=== PATIENT | male | born 1985 | race African-American/Black ===

== ENCOUNTER 2017-12-21 08:58 | Emergency (ER) | payer BC, SELFPAY ==
[2017-12-21 09:16] VITALS: BP 123/83; PULSE 116; RESP 20; TEMP 38; O2SAT 99; BMI 26.4
[2017-12-21 09:28] LABS: UTC Influenza A Antigen Negative (Negative); UTC Influenza B Antigen Negative (Negative)
--- NOTE | 2017-12-21 09:42 | HMH.EDUTC ---
[facility] [place] Disposition Clinical Impression: Influenza-like illness Disposition: Home, Self-Care Condition on Discharge: Good Instructions: DI for Influenza -- Adult Additional Instructions: * No sign of bacterial infection. Likely viral. Virus can take 7-14 days to run their course. Sounds and looks like the flu. * Discussed risks, side effects, risk of allergic reaction, and possible benefits. We even discussed hallucinations and uncontrollable fevers. Declined tamiflu * Lots of rest * Increase fluids, water, gatorade, powerade, pedialyte if infant/toddler/child * Monitor Temp. Tylenol every 4 hours as needed no more then 5 times a day or 4000mg in 24 hours and/or ibuprofen every 6 hours as needed no more then 3200mg in 24 hours (as long as your primary care doctor has told you that it is ok to take both) for fever/aches/pain. ER if fever no less than 101 despite tylenol and Ibuprofen * OTC cold/flu/sinus medication is ok but pick one. Do not take multiple different ones as they have similar ingredients and you can overdose on cold medication. * You (or your child) are contagious until no fever, aches, chills x 24 hours without medication for symptoms. If this is not the flu and another upper respiratory virus, you might be ready to return on Thursday. If this is the flu you might not be ready to return Thursday so please call for extended note. If no worse, we can extend note but if having new or worsening symptoms, might ask you to return. Referrals: Provider,Referral, MD [Primary Care Provider] - (IMMEDIATELY for new or worsening symptoms, improvement followed by suddenly feeling worse OR no noticeable improvement over the next 48-72 hours. 911 for difficulty breathing ) Forms: Work/School Release Time of Disposition: 09:47 Medical Decision Making Vital Signs: 12/21/17 09:16 Temperature 100.4 F H Temperature Source Temporal Artery Scan Pulse Rate [Right Brachial] 116 H Respiratory Rate 20 Blood Pressure [Right Arm] 123/83 Blood Pressure Mean [Right Arm] 96 Blood Pressure Source [Right Arm] Automatic Cuff Blood Pressure Position [Right Arm] Sitting 02 Sat by Pulse Oximetry 99 Oxygen Delivery Method Room Air - Lab Data Lab results reviewed: Yes: I reviewed the patient's lab results. Lab Results 12/21/17 09:10: Influenza Type A Ag Negative, Influenza Type B Ag Negative - Morgan Inquiry Pt receiving controlled substance: No [facility] [place] HPI - General Stated complaint: Poss Flu Time Seen by Provider: 12/21/17 09:17 Mode of Arrival: Ambulatory Source of Information: Patient Limitations: No Limitations Description of Symptoms (Recalled from Triage Doc. by RN): aches, chills, fever HEENT Symptoms (Recalled from RN notes): No Resp Symptoms (Recalled from RN notes): No Skin Symptoms (Recalled from RN notes): No MS Symptoms (Recalled from RN notes): Yes (aches) Functional Status (Recalled from RN notes): n/a - History of Present Illness Provider Complaint: c/o subjective fever, aches, chills, mild nonprod cough, rhinorrhea all starting late yesterday. Fever slowly worsening throughout the night. Tylenol/motrin help but last before going to bed last night. Son w/ flu but more then 2 weeks ago. No other known sick contact at home. - Related Data Allergies Allergy/AdvReac Type Severity Reaction Status Date / Time No Known Allergies Allergy Verified 12/21/17 09:21 - Worker's Comp Is this a Worker's Comp case?: No [facility] History I have reviewed the patient's past medical history: Yes 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: Denies:: Cancer, Diabetes Mellitus Type 1, Diabetes Mellitus Type 2, Hypertension, MRSA Other Surgeries: Yes: Other (wisdom teeth extraction) Amputation: No Fractures: No - *Social History Smoking Status: Never smoker Alcohol Intake: never - Psychiatric History Expresses thoughts of harming self/others: None Suicide Plan Description: No Plan ROS Obtained: Yes Systems reviewed as appropriate & no additional
--- NOTE | 2017-12-21 09:45 | ED_ITS ---
[facility] [place] Disposition Clinical Impression: Influenza-like illness Disposition: Home, Self-Care Condition on Discharge: Good Instructions: DI for Influenza -- Adult Additional Instructions: * No sign of bacterial infection. Likely viral. Virus can take 7-14 days to run their course. Sounds and looks like the flu. * Discussed risks, side effects, risk of allergic reaction, and possible benefits. We even discussed hallucinations and uncontrollable fevers. Declined tamiflu * Lots of rest * Increase fluids, water, gatorade, powerade, pedialyte if infant/toddler/child * Monitor Temp. Tylenol every 4 hours as needed no more then 5 times a day or 4000mg in 24 hours and/or ibuprofen every 6 hours as needed no more then 3200mg in 24 hours (as long as your primary care doctor has told you that it is ok to take both) for fever/aches/pain. ER if fever no less than 101 despite tylenol and Ibuprofen * OTC cold/flu/sinus medication is ok but pick one. Do not take multiple different ones as they have similar ingredients and you can overdose on cold medication. * You (or your child) are contagious until no fever, aches, chills x 24 hours without medication for symptoms. If this is not the flu and another upper respiratory virus, you might be ready to return on Thursday. If this is the flu you might not be ready to return Thursday so please call for extended note. If no worse, we can extend note but if having new or worsening symptoms, might ask you to return. Referrals: Provider,Referral, MD [Primary Care Provider] - (IMMEDIATELY for new or worsening symptoms, improvement followed by suddenly feeling worse OR no noticeable improvement over the next 48-72 hours. 911 for difficulty breathing ) Forms: Work/School Release Time of Disposition: 09:47 Medical Decision Making Vital Signs: 12/21/17 09:16 Temperature 100.4 F H Temperature Source Temporal Artery Scan Pulse Rate [Right Brachial] 116 H Respiratory Rate 20 Blood Pressure [Right Arm] 123/83 Blood Pressure Mean [Right Arm] 96 Blood Pressure Source [Right Arm] Automatic Cuff Blood Pressure Position [Right Arm] Sitting 02 Sat by Pulse Oximetry 99 Oxygen Delivery Method Room Air - Lab Data Lab results reviewed: Yes: I reviewed the patient's lab results. Lab Results 12/21/17 09:10: Influenza Type A Ag Negative, Influenza Type B Ag Negative - Morgan Inquiry Pt receiving controlled substance: No [facility] [place] HPI - General Stated complaint: Poss Flu Time Seen by Provider: 12/21/17 09:17 Mode of Arrival: Ambulatory Source of Information: Patient Limitations: No Limitations Description of Symptoms (Recalled from Triage Doc. by RN): aches, chills, fever HEENT Symptoms (Recalled from RN notes): No Resp Symptoms (Recalled from RN notes): No Skin Symptoms (Recalled from RN notes): No MS Symptoms (Recalled from RN notes): Yes (aches) Functional Status (Recalled from RN notes): n/a - History of Present Illness Provider Complaint: c/o subjective fever, aches, chills, mild nonprod cough, rhinorrhea all starting late yesterday. Fever slowly worsening throughout the night. Tylenol/motrin help but last before going to bed last night. Son w/ flu but more then 2 weeks ago. No other known sick contact at home. - Related Data Allergies Allergy/AdvReac Type Severity Reaction Status Date / Time No Known Allergies Allergy Verified 12/21/17 09:21 - Worker's Comp Is this a Worker's Comp case?: No [facility]
[2017-12-21 09:50] VITALS: BP 127/77; PULSE 76; RESP 20; TEMP 37.7; O2SAT 99
== END 2017-12-21 09:51 | disposition home or self-care (01) ==
PROVIDERS: Emergency Provider Nurse Practitioner Family
DX: J11.1 Influenza due to unidentified influenza virus with other respiratory manifestations (principal)
CPT/HCPCS: 87804; 99202

== ENCOUNTER 2018-01-01 19:27 | Emergency (ER) | payer BC, SELFPAY ==
--- NOTE | 2018-01-01 19:44 | XR_ITS ---
XR chest 2V INDICATION: Persistent cough COMPARISON: None FINDINGS: The lung denney are well expanded and appear clear of infiltrate. The cardiomediastinal silhouette and vascularity are normal. The costophrenic angles are clear. There are partially calcified hilar nodes. The bony thorax is normal. IMPRESSION: Negative chest.
[2018-01-01 19:53] VITALS: BP 128/90; PULSE 72; RESP 20; TEMP 36.9; O2SAT 99; BMI 25.3
--- NOTE | 2018-01-01 20:04 | HMH.EDUTC ---
[facility] [place] Impression: URI (upper respiratory infection) Qualifiers: URI type: unspecified URI Qualified Code(s): J06.9 - Acute upper respiratory infection, unspecified Disposition: Home, Self-Care Condition on Discharge: Good Instructions: DI for Cough -- Adult, DI for Nasal Congestion Additional Instructions: * Monitor Temp. Tylenol and/or Ibuprofen as needed. ER if fever is no less than 101 despite alternating Tylenol and Ibuprofen * Encourage fluids, water, Gatorade, powerade, pedialyte if /toddler/or child * Warm salt water gargles for throat irritation *Warm fluids *Sore throat lozenges *Sleep elevated *humidifier or vaporizer Lots of rest Increase fluids, water, Gatorade, powerade Follow up IMMEDIATELY for new or worsening of symptoms OR no noticeable improvement over the next 48-72 hours. 911 immediately for any life threatening symptoms such as chest pain or difficulty breathing Prescriptions: Promethazine/Dextromethorphan [Promethazine-Dm Syrup] 5 ml PO Q4HP PRN #300 ml MDD 30ML/DAY PRN Reason: Cough Azithromycin [Z-Jeffrey 250mg Tab] 250 mg PO UD DOSE PK #6 tab predniSONE [Prednisone 5mg Tab Dose-Pack] 5 mg PO UD DOSE PK #21 pack Referrals: Fran Palfaox MD [Primary Care Provider] - Forms: Work/School Release Time of Disposition: 20:21 Medical Decision Making - Medical Records Medical records reviewed: Yes: I reviewed the patient's medical records. Vital Signs: 01/01/18 19:53 Temperature 98.4 F Temperature Source Oral Pulse Rate [Right Brachial] 72 Respiratory Rate 20 Blood Pressure [Right Arm] 128/90 Blood Pressure Mean [Right Arm] 102 Blood Pressure Source [Right Arm] Automatic Cuff Blood Pressure Position [Right Arm] Sitting 02 Sat by Pulse Oximetry 99 - Lab Data Lab results reviewed: Yes: I reviewed the patient's lab results. Orders (Tests/Meds): ORDERS Category Date Time Status CXR 2 view (NOT portable) [XR chest 2V] Stat Exams 01/01/18 19:44 Taken Flu A&B Antigens, Rapid [Rapid Influenza A&B Antigens] Lab 01/01/18 20:04 Ordered Stat - Morgan Inquiry Pt receiving controlled substance: No Morgan was queried for this patient: No [facility] [place] - General Stated complaint: Cough;Vomiting Mode of Arrival: Ambulatory Source of Information: Patient Description of Symptoms (Recalled from Triage Doc. by RN): cough, had the flu recently, and not any better HEENT Symptoms (Recalled from RN notes): No Resp Symptoms (Recalled from RN notes): Yes (chest congestion, cough) Skin Symptoms (Recalled from RN notes): No MS Symptoms (Recalled from RN notes): No Functional Status (Recalled from RN notes): na - History of Present Illness Provider Complaint: Patient state that he was seen last week and tested for the flu State that flu test was negative but was told he probably came in earlier because his son recently had the flu State that ever since he has been sick with cough and this morning he was coughing so hard that he was vomiting State that cough is a nagging cough and feels like something is dripping in his throat - Related Data Previous Rx's Medication Instructions Recorded Azithromycin [Z-Jeffrey 250mg Tab] 250 mg PO UD DOSE PK #6 tab 01/01/18 Promethazine/Dextromethorphan 5 ml PO Q4HP PRN #300 ml MDD 01/01/18 [Promethazine-Dm Syrup] 30ML/DAY predniSONE [Prednisone 5mg Tab 5 mg PO UD DOSE PK #21 pack 01/01/18 Dose-Pack] Allergies Allergy/AdvReac Type Severity Reaction Status Date / Time No Known Allergies Allergy Verified 12/21/17 09:21 - Worker's Comp Is this a Worker's Comp case?: No Is this an H Worker's Comp?: No Is this a [place] Worker's Comp?: No [facility] History I have reviewed the patient's past medical history: Yes 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: Denies:: Cancer, Diabetes Mellitus Type 1, Diabetes Mellitus Type 2, Hypertension, MRSA Other Surgeries: Yes: Other (wisdom teeth extraction) Amputation: No Fractures: No - Social History
--- NOTE | 2018-01-01 20:08 | ED_ITS ---
[facility] [place] Disposition Clinical Impression: URI (upper respiratory infection) Qualifiers: URI type: unspecified URI Qualified Code(s): J06.9 - Acute upper respiratory infection, unspecified Disposition: Home, Self-Care Condition on Discharge: Good Instructions: DI for Cough -- Adult, DI for Nasal Congestion Additional Instructions: * Monitor Temp. Tylenol and/or Ibuprofen as needed. ER if fever is no less than 101 despite alternating Tylenol and Ibuprofen * Encourage fluids, water, Gatorade, powerade, pedialyte if infant/toddler/or child * Warm salt water gargles for throat irritation *Warm fluids *Sore throat lozenges *Sleep elevated *humidifier or vaporizer Lots of rest Increase fluids, water, Gatorade, powerade Follow up IMMEDIATELY for new or worsening of symptoms OR no noticeable improvement over the next 48-72 hours. 911 immediately for any life threatening symptoms such as chest pain or difficulty breathing Prescriptions: Promethazine/Dextromethorphan [Promethazine-Dm Syrup] 5 ml PO Q4HP PRN #300 ml MDD 30ML/DAY PRN Reason: Cough Azithromycin [Z-Jeffrey 250mg Tab] 250 mg PO UD DOSE PK #6 tab predniSONE [Prednisone 5mg Tab Dose-Pack] 5 mg PO UD DOSE PK #21 pack Referrals: Fran Palafox MD [Primary Care Provider] - Forms: Work/School Release Time of Disposition: 20:21 Medical Decision Making - Medical Records Medical records reviewed: Yes: I reviewed the patient's medical records. Vital Signs: 01/01/18 19:53 Temperature 98.4 F Temperature Source Oral Pulse Rate [Right Brachial] 72 Respiratory Rate 20 Blood Pressure [Right Arm] 128/90 Blood Pressure Mean [Right Arm] 102 Blood Pressure Source [Right Arm] Automatic Cuff Blood Pressure Position [Right Arm] Sitting 02 Sat by Pulse Oximetry 99 - Lab Data Lab results reviewed: Yes: I reviewed the patient's lab results. Orders (Tests/Meds): ORDERS Category Date Time Status CXR 2 view (NOT portable) [XR chest 2V] Stat Exams 01/01/18 19:44 Taken Flu A&B Antigens, Rapid [Rapid Influenza A&B Antigens] Lab 01/01/18 20:04 Ordered Stat - Morgan Inquiry Pt receiving controlled substance: No Morgan was queried for this patient: No [facility] [place] HPI - General Stated complaint: Cough;Vomiting Mode of Arrival: Ambulatory Source of Information: Patient Description of Symptoms (Recalled from Triage Doc. by RN): cough, had the flu recently, and not any better HEENT Symptoms (Recalled from RN notes): No Resp Symptoms (Recalled from RN notes): Yes (chest congestion, cough) Skin Symptoms (Recalled from RN notes): No MS Symptoms (Recalled from RN notes): No Functional Status (Recalled from RN notes): na - History of Present Illness Provider Complaint: Patient state that he was seen last week and tested for the flu State that flu test was negative but was told he probably came in earlier because his son recently had the flu State that ever since he has been sick with cough and this morning he was coughing so hard that he was vomiting State that cough is a nagging cough and feels like something is dripping in his throat - Related Data Previous Rx's Medication Instructions Recorded Azithromycin [Z-Jeffrey 250mg Tab] 250 mg PO UD DOSE PK #6 tab 01/01/18 Promethazine/Dextromethorphan 5 ml PO Q4HP PRN #300 ml MDD 01/01/18 [Promethazine-Dm Syrup] 30ML/DAY predniSONE [Prednisone 5mg Tab 5 mg PO UD DOSE PK #21
[2018-01-01 20:23] VITALS: BP 128/90; PULSE 72; RESP 20; TEMP 36.9; O2SAT 99
[2018-01-01 20:43] VITALS: BP 152/90; PULSE 80; RESP 20; TEMP 36.6
== END 2018-01-01 20:43 | disposition home or self-care (01) ==
LOC: ER 19:35 → UTC 19:37
PROVIDERS: Emergency Provider Nurse Practitioner; PCP Family Medicine
DX: J06.9 Acute upper respiratory infection, unspecified (principal); Z20.828 Contact with and (suspected) exposure to other viral communicable diseases
CPT/HCPCS: 71046; 96372; 99203

== ENCOUNTER → 2018-03-15 13:29 | Outpatient (POV) | payer BC, SELFPAY | PROVIDERS: PCP Family Medicine; Visit Provider Specialist | DX: G56.01 Carpal tunnel syndrome, right upper limb (principal) | CPT/HCPCS: 95886; 95908 ==

== ENCOUNTER → 2019-12-15 07:55 | Outpatient (CLI) | payer BC, SELFPAY ==
--- NOTE | 2019-12-15 07:57 | MR_ITS ---
PROCEDURE: MR HEAD/BRAIN WO CON CLINICAL INDICATION: NEW DAILY PERSISTENT HEADACHES Severe headache with dizziness and blurred vision COMPARISON: No exams were available for comparison TECHNIQUE: Routine multiplanar multi echo sequences are performed without gadolinium enhancement. FINDINGS: No midline shift, mass effect, intracranial hemorrhage, or hydrocephalus is evident. Cerebellopontine angles, cerebellum, and brainstem have an unremarkable appearance. No evidence of acute infarction. There is a small focus of increased FLAIR signal at approximately 3 mm along the medial aspect right temporal. This is of questionable clinical significance possibly due to gliotic focus. The pituitary, optic chiasm, corpus callosum, and craniocervical junction have an unremarkable appearance. There is an asymmetric vascular prominence in the right suprasellar region. While this may be due to partial volume averaging from a tortuous vessel, 1 cannot exclude the possibility of an aneurysm the anterior communicating artery. MRA is suggested for further evaluation. This measures approximately 3 mm. There is some fluid in the right mastoid sinus. No paranasal sinus air-fluid levels evident. IMPRESSION: 1. 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 Suggest MRA for further evaluation. 2. Tiny T2 hyperintensity in the medial aspect of the right temporal lobe nonspecific of questionable clinical significance. Possibly related to a small gliotic focus. Suggest 6 month MRI follow-up without and with gadolinium enhancement Dictated by: Edu Singleton MD 12/16/2019 08:55 Electronically signed by Edu Singleton MD in [place] 12/16/2019 08:55
== END ==
PROVIDERS: PCP Family Medicine; Visit Provider Family Medicine
DX: G44.52 New daily persistent headache (NDPH) (principal)
CPT/HCPCS: 70551

== ENCOUNTER → 2019-12-29 08:39 | Outpatient (CLI) | payer BC, SELFPAY ==
--- NOTE | 2019-12-29 08:47 | CT_ITS ---
Procedure: CT ANGIO HEAD CLINICAL HISTORY: PERSISTENT HEADACHE,ABN MRI HEAD COMPARISON: No exams were available for comparison TECHNIQUE: IV Contrast: 100ml Optiray 350 Axial images obtained with sagittal and coronal reformats. All CT scans at the facility use one or more dose reduction, viz: automated exposure control, ma/kV adjustment per patient size (including targeted exams where dose is matched to indication, i.e. head), or iterative reconstruction technique. FINDINGS: There is no evidence of intracranial aneurysm or other vascular malformation. There is no focal arterial occlusion or stenosis. No vascular pathology is demonstrated. Major intracranial venous structures have a normal appearance. IMPRESSION: Exam is within normal limits. Dictated by: Juan Byers 12/29/2019 11:03 Electronically signed by Juan Byers in [place] 12/29/2019 11:03
== END ==
PROVIDERS: PCP Family Medicine; Visit Provider Family Medicine
DX: G44.52 New daily persistent headache (NDPH) (principal); R93.0 Abnormal findings on diagnostic imaging of skull and head, not elsewhere classified
CPT/HCPCS: 70496; Q9967

== ENCOUNTER 2020-05-21 13:20 | Emergency (ER) | payer BC, SELFPAY ==
--- NOTE | 2020-05-21 13:46 | HMH.EDUTC ---
[facility] [place] Clinical Impression: Gastroenteritis Disposition: Home, Self-Care Condition on Discharge: Good Instructions: Viral Gastroenteritis, DI for Viral Gastroenteritis -- Adult Additional Instructions: Drink plenty of fluids. Take tylenol or ibuprofen for pain or fever. Take the medications as directed. Follow up with your regular doctor. GO TO THE ER FOR ANY WORSENING SYMPTOMS Prescriptions: Ondansetron [Zofran 4mg ODT] 4 mg PO Q8HP PRN #10 tab.rapdis PRN Reason: Nausea Transmission Status: Received by [id number] Referrals: Alfonso Ortega MD [Primary Care Provider] - Forms: Work/School Release Time of Disposition: 14:07 Medical Decision Making - Medical Records Medical records reviewed: No: I reviewed the patient's medical records. - Morgan Inquiry Pt receiving controlled substance: No Vital Signs: 05/21/20 13:54 05/21/20 14:08 Temperature 98.0 F 98.0 F Temperature Source Temporal Artery Scan Pulse Rate 75 Pulse Rate [Left Brachial] 75 Respiratory Rate 20 20 Blood Pressure 112/69 Blood Pressure [Left Arm] 112/69 Blood Pressure Mean [Left Arm] 83 Blood Pressure Source [Left Arm] Automatic Cuff 02 Sat by Pulse Oximetry 99 Oxygen Delivery Method Room Air [facility] [place] HPI - General Stated complaint: vomiting, diarrhea Time Seen by Provider: 05/21/20 13:46 - History of Present Illness Provider Complaint: He c/o n/v/d since around 2200 last night, after he ate out. He thinks he either has food poisoning or a gi virus. He denies any cough, congestion, or fever/chills. - Related Data Previous Rx's Medication Instructions Recorded propranolol 40 mg tablet 60 mg PO BID #90 tab 03/05/20 rizatriptan 10 mg disintegrating See Rx Instructions PO .COMPLEX 03/05/20 tablet #10 tab Ondansetron [Zofran 4mg ODT] 4 mg PO Q8HP PRN #10 tab.rapdis 05/21/20 Allergies Allergy/AdvReac Type Severity Reaction Status Date / Time No Known Allergies Allergy Verified 03/05/20 14:01 [facility] History - Hepatitis A Screen Attestation statement:: This patient has been screened for Hepatitis A risk factors. I have reviewed the patient's past medical history: Yes 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: Reports:: Migraine Denies:: Cancer, Diabetes Mellitus Type 1, Diabetes Mellitus Type 2, Hypertension, MRSA Other Surgeries: Yes: Other Amputation: No Fractures: No Comment: oral surgery - Social History Smoking Status: Never smoker Alcohol Intake: current Alcohol Intake Frequency:: holidays/special occasions only Substance Use Type: denies use Occupational Status: employed Housing: house Household Members: family Family Hx:: Diabetes ROS Obtained: Yes All systems reviewed & no additional complaints - Constitutional Constitutional: Denies chills, Denies fever(s) - ENT Ears, Nose, Mouth, and Throat: Denies dizziness, Denies otalgia, Denies sore throat - Cardiovascular Cardiovascular: Denies chest pain - Respiratory Respiratory: No chest congestion, No cough, No dyspnea, No coughing up blood, No stridor, No wheezing - Gastrointestinal Gastrointestingal: Reports: as per HPI Physical Exam - General General appearance: alert, in no apparent distress - Head Head exam: atraumatic, normocephalic, normal inspection - Eye Eye exam: Present: normal appearance, PERRL, EOMI - ENT ENT exam: Present: normal exam, normal oropharynx, mucous membranes moist, TM's normal bilaterally, normal external ear exam - Neck Neck exam: Present: normal inspection, full ROM, trachea midline. Absent: meningismus, lymphadenopathy - Chest Chest inspection: Present: normal inspection, symmetric chest wall rise. Absent: tenderness - Respiratory Respiratory exam: Present: normal lung sounds bilaterally. Absent: respiratory distress - Cardiovascular Cardiovascular exam: Present: regular rate, normal rhythm. Absent: JVD - Abdominal Exam Abdominal exam: Present: soft
[2020-05-21 13:54] VITALS: BP 112/69; PULSE 75; RESP 20; TEMP 36.7; O2SAT 99; BMI 26.6
[2020-05-21 14:08] VITALS: BP 112/69; PULSE 75; RESP 20; TEMP 36.7; O2SAT 99
== END 2020-05-21 14:10 | disposition home or self-care (01) ==
PROVIDERS: Emergency Provider Nurse Practitioner Family; PCP Family Medicine
DX: K52.9 Noninfective gastroenteritis and colitis, unspecified (principal); G43.709 Chronic migraine without aura, not intractable, without status migrainosus
CPT/HCPCS: 99201

== ENCOUNTER 2020-08-07 12:12 | Emergency (ER) | payer BC, SELFPAY ==
[2020-08-07 12:55] VITALS: BP 139/93; PULSE 82; RESP 19; TEMP 36.6; O2SAT 100; BMI 25.1
--- NOTE | 2020-08-07 13:00 | HMH.EDUTC ---
[facility] [place] Disposition Clinical Impression: Encounter for laboratory testing for COVID-19 virus Disposition: Home, Self-Care Condition on Discharge: Good Instructions: Preventing the Spread of Coronavirus Discharge Instructions Additional Instructions: You was tested for today for COVID19 your test result should be back tomorrow or , you may call back in the evening tomorrow or evening to see if your test results are back and the result You was given a handout with instructions for Self Quarantine and Self isolation for while you wait on test results and what to do if they are positive Return if needed No work until negative COVID test Referrals: Alfonso Ortega MD [Primary Care Provider] - As needed Forms: Work/School Release Time of Disposition: 13:02 Medical Decision Making - Morgan Inquiry Pt receiving controlled substance: No Morgan was queried for this patient: No Vital Signs: 08/07/20 12:55 Temperature 97.9 F Temperature Source Oral Pulse Rate [Right Brachial] 82 Respiratory Rate 19 Blood Pressure [Right Arm] 139/93 H Blood Pressure Mean [Right Arm] 108 Blood Pressure Source [Right Arm] Automatic Cuff Blood Pressure Position [Right Arm] Sitting 02 Sat by Pulse Oximetry 100 Oxygen Delivery Method Room Air Orders (Tests/Meds): ORDERS Category Date Time Status Covid-19 Nasal PCR Sendout [facility] 08/07/20 12:36 Ordered [facility] [place] HPI - General Stated complaint: covid test Time Seen by Provider: 08/07/20 13:00 Mode of Arrival: Ambulatory Source of Information: Patient Limitations: No Limitations Description of Symptoms (Recalled from Triage Doc. by RN): PATIENT NEEDING COVID TEST. EXPOSED TO COWORKER WHO TESTED POSITIVE YESTERDAY, DENIES SYMPTOMS HEENT Symptoms (Recalled from RN notes): No Resp Symptoms (Recalled from RN notes): No Skin Symptoms (Recalled from RN notes): No MS Symptoms (Recalled from RN notes): No Functional Status (Recalled from RN notes): N/A - History of Present Illness Provider Complaint: Patient states that he was sent by his employer to get tested for COVID 19 State that he was recently around another co worker that recently tested positive for COVID so they wanted them all to get tested States that he has been having allergy like symptoms but does that alot this time of year - Related Data Previous Rx's Medication Instructions Recorded propranolol 40 mg tablet 60 mg PO BID #90 tab 04/27/20 rizatriptan 10 mg disintegrating See Rx Instructions PO .COMPLEX 03/05/20 tablet #10 tab Ondansetron [Zofran 4mg ODT] 4 mg PO Q8HP PRN #10 tab.rapdis 05/21/20 Allergies Allergy/AdvReac Type Severity Reaction Status Date / Time No Known Allergies Allergy Verified 03/05/20 14:01 - Worker's Comp Is this a Worker's Comp case?: No [facility] History - Hepatitis A Screen Drug use history?: No High risk sexual behaviors?: No History of sexually transmitted infection?: No Currently employed?: No Childcare worker?: No Do you have indoor plumbing?: Yes Do you have electricity?: Yes Attestation statement:: This patient has been screened for Hepatitis A risk factors. I have reviewed the patient's past medical history: Yes 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: Reports:: Migraine Denies:: Cancer, Diabetes Mellitus Type 1, Diabetes Mellitus Type 2, Hypertension, MRSA Other Surgeries: Yes: Other Amputation: No Fractures: No Comment: oral surgery - Social History Smoking Status: Never smoker Alcohol Intake: never Alcohol Intake Frequency:: holidays/special occasions only Substance Use Type: denies use Occupational Status: other Housing: house Household Members: family Family Hx:: Diabetes ROS Obtained: Yes All systems reviewed & no additional complaints, Yes Systems reviewed as appropriate & no additional complaints - Constitutional Constitutional: Reports system reviewed and no additional complaints, except as docu, Denies body ache, Denies chills, Denies fever(s
[2020-08-07 13:16] VITALS: BP 139/93; PULSE 82; RESP 19; TEMP 36.6; O2SAT 100
[2020-08-08 16:20] LABS: Covid-19 Nasal PCR Sendout Lex Positive
== END 2020-08-07 13:17 | disposition home or self-care (01) ==
PROVIDERS: Emergency Provider Nurse Practitioner; PCP Family Medicine
DX: Z20.828 Contact with and (suspected) exposure to other viral communicable diseases (principal); G43.709 Chronic migraine without aura, not intractable, without status migrainosus
CPT/HCPCS: 99201; U0004

== ENCOUNTER 2020-08-14 17:08 | Emergency (ER) | payer BC, SELFPAY ==
[2020-08-14 17:23] VITALS: BP 133/75; PULSE 82; RESP 19; TEMP 36.8; O2SAT 98
--- NOTE | 2020-08-14 17:39 | HMH.EDUTC ---
[facility] [place] Disposition Clinical Impression: COVID-19 Disposition: Home, Self-Care Condition on Discharge: Good Instructions: Preventing the Spread of Coronavirus Discharge Instructions Additional Instructions: Drink plenty of fluids. Take tylenol for pain or fever. Follow up with your regular doctor. GO TO THE ER FOR ANY WORSENING SYMPTOMS .FOLLOW THE DIRECTIONS ON THE COVID-19 HAND OUT THAT WE GAVE YOU REGARDING SELF-ISOLATION UNTIL YOU KNOW YOUR COVID-19 RESULTS CONTACT THE HEALTH DEPARTMENT REGARDING WHEN IT WILL BE SAFE FOR YOU TO GO BACK TO WORK. Referrals: Alfonso Ortega MD [Primary Care Provider] - Time of Disposition: 17:47 Medical Decision Making - Medical Records Medical records reviewed: No: I reviewed the patient's medical records. - Morgan Inquiry Pt receiving controlled substance: No Vital Signs: 08/14/20 17:23 Temperature 98.2 F Temperature Source Oral Pulse Rate [Right Brachial] 82 Respiratory Rate 19 Blood Pressure [Right Arm] 133/75 Blood Pressure Mean [Right Arm] 94 Blood Pressure Source [Right Arm] Automatic Cuff Blood Pressure Position [Right Arm] Sitting 02 Sat by Pulse Oximetry 98 Oxygen Delivery Method Room Air Orders (Tests/Meds): ORDERS Category Date Time Status Covid-19 Nasal PCR ([facility]) Routine Lab 08/14/20 17:29 Received [facility] [place] HPI - General Stated complaint: to be re testes Cov to return back work Time Seen by Provider: 08/14/20 17:39 Mode of Arrival: Ambulatory Source of Information: Patient Limitations: No Limitations Description of Symptoms (Recalled from Triage Doc. by RN): PATIENT RECENTLY TESTED POSITIVE FOR COVID AFTER BEING EXPOSED AT WORK. REQUESTING TO BE RE-TESTED HEENT Symptoms (Recalled from RN notes): No Resp Symptoms (Recalled from RN notes): No Skin Symptoms (Recalled from RN notes): No MS Symptoms (Recalled from RN notes): No Functional Status (Recalled from RN notes): WNL - History of Present Illness Provider Complaint: He is here wanting to be tested for covid. He had a positive test on 08/07. He denies that he has ever developed any symptoms. - Related Data Previous Rx's Medication Instructions Recorded propranolol 40 mg tablet 60 mg PO BID #90 tab 03/05/20 rizatriptan 10 mg disintegrating See Rx Instructions PO .COMPLEX 03/05/20 tablet #10 tab Ondansetron [Zofran 4mg ODT] 4 mg PO Q8HP PRN #10 tab.rapdis 05/21/20 Allergies Allergy/AdvReac Type Severity Reaction Status Date / Time No Known Allergies Allergy Verified 03/05/20 14:01 - Worker's Comp Is this a Worker's Comp case?: No [facility] History - Hepatitis A Screen Drug use history?: No High risk sexual behaviors?: No History of sexually transmitted infection?: No Currently employed?: No Childcare worker?: No Do you have indoor plumbing?: Yes Do you have electricity?: Yes Attestation statement:: This patient has been screened for Hepatitis A risk factors. I have reviewed the patient's past medical history: Yes 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: Reports:: Migraine Denies:: Cancer, Diabetes Mellitus Type 1, Diabetes Mellitus Type 2, Hypertension, MRSA Other Surgeries: Yes: Other Amputation: No Fractures: No Comment: oral surgery - Social History Smoking Status: Never smoker Alcohol Intake: never Alcohol Intake Frequency:: holidays/special occasions only Substance Use Type: denies use Occupational Status: other Housing: house Household Members: family Family Hx:: Diabetes ROS Obtained: Yes All systems reviewed & no additional complaints - Constitutional Constitutional: Denies chills, Denies fever(s) - Eyes Eyes: Denies eye discharge - ENT Ears, Nose, Mouth, and Throat: Denies sore throat - Cardiovascular Cardiovascular: Denies chest pain - Respiratory Respiratory: No chest congestion, No cough Physical Exam - General General appearance: alert, in no apparent distress - Head Head exam: atraumatic, normocephalic, normal i
[2020-08-14 17:51] VITALS: BP 133/75; PULSE 82; RESP 19; TEMP 36.8; O2SAT 98
== END 2020-08-14 17:54 | disposition home or self-care (01) ==
PROVIDERS: Emergency Provider Nurse Practitioner Family; PCP Family Medicine
DX: U07.1 COVID-19 (principal)
CPT/HCPCS: 99201; U0003

== ENCOUNTER 2020-09-10 14:15 | Emergency (ER) | payer BC, SELFPAY ==
[2020-09-10 14:25] VITALS: BP 143/81; PULSE 99; RESP 14; TEMP 36.9; O2SAT 100; BMI 23.7
--- NOTE | 2020-09-10 14:51 | HMH.EDUTC ---
[facility] [place] Disposition Clinical Impression: Gastroenteritis Disposition: Home, Self-Care Condition on Discharge: Good Instructions: Viral Gastroenteritis, DI for Viral Gastroenteritis -- Adult Additional Instructions: Drink plenty of fluids. Take tylenol for pain or fever. Take the medications as directed. Follow up with your regular doctor. GO TO THE ER FOR ANY WORSENING SYMPTOMS Prescriptions: Ondansetron [Zofran 4mg ODT] 4 mg PO Q8HP PRN #9 tab.rapdis PRN Reason: Nausea Transmission Status: Received by [id number] Referrals: Alfonso Ortega MD [Primary Care Provider] - Forms: Work/School Release Time of Disposition: 14:56 Medical Decision Making - Medical Records Medical records reviewed: No: I reviewed the patient's medical records. - Morgan Inquiry Pt receiving controlled substance: No Vital Signs: 09/10/20 14:25 09/10/20 15:10 Temperature 98.4 F 98.4 F Temperature Source Oral Pulse Rate 99 H Pulse Rate [Right Brachial] 99 H Respiratory Rate 14 14 Blood Pressure 143/81 H Blood Pressure [Right Arm] 143/81 H Blood Pressure Mean [Right Arm] 101 Blood Pressure Source [Right Arm] Automatic Cuff Blood Pressure Position [Right Arm] Sitting 02 Sat by Pulse Oximetry 100 Oxygen Delivery Method Room Air [facility] [place] HPI - General Stated complaint: v/d Time Seen by Provider: 09/10/20 14:53 Mode of Arrival: Ambulatory Source of Information: Patient Limitations: No Limitations Description of Symptoms (Recalled from Triage Doc. by RN): PATIENT STATES HE ATE LAO FOOD ON THURSDAY AND HAS HAD VOMITING AND DIARRHEA SINCE. HEENT Symptoms (Recalled from RN notes): No Resp Symptoms (Recalled from RN notes): No Skin Symptoms (Recalled from RN notes): No MS Symptoms (Recalled from RN notes): No Functional Status (Recalled from RN notes): WNL - History of Present Illness Provider Complaint: He states that he ate icelandic food on Thursday that did not agree with his stomach, so he had diarrhea all weekend. Now he is better but he was unable to go to work today. He denies any fever, chills, or other symptoms. - Related Data Previous Rx's Medication Instructions Recorded propranolol 40 mg tablet 60 mg PO BID #90 tab 03/05/20 rizatriptan 10 mg disintegrating See Rx Instructions PO .COMPLEX 03/05/20 tablet #10 tab Ondansetron [Zofran 4mg ODT] 4 mg PO Q8HP PRN #10 tab.rapdis 05/21/20 Ondansetron [Zofran 4mg ODT] 4 mg PO Q8HP PRN #9 tab.rapdis 09/10/20 Allergies Allergy/AdvReac Type Severity Reaction Status Date / Time No Known Allergies Allergy Verified 03/05/20 14:01 - Worker's Comp Is this a Worker's Comp case?: No [facility] History - Hepatitis A Screen Drug use history?: No High risk sexual behaviors?: No History of sexually transmitted infection?: No Currently employed?: No Childcare worker?: No Do you have indoor plumbing?: Yes Do you have electricity?: Yes Attestation statement:: This patient has been screened for Hepatitis A risk factors. I have reviewed the patient's past medical history: Yes 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: Reports:: Migraine Denies:: Cancer, Diabetes Mellitus Type 1, Diabetes Mellitus Type 2, Hypertension, MRSA Other Surgeries: Yes: Other Amputation: No Fractures: No Comment: oral surgery - Social History Smoking Status: Never smoker Alcohol Intake: never Alcohol Intake Frequency:: holidays/special occasions only Substance Use Type: denies use Occupational Status: other Housing: house Household Members: family Family Hx:: Diabetes ROS Obtained: Yes All systems reviewed & no additional complaints - Constitutional Constitutional: Denies chills, Denies fever(s), Reports poor appetite, Denies malaise - Eyes Eyes: Denies eye discharge - ENT Ears, Nose, Mouth, and Throat: Denies dizziness, Denies otalgia, Denies sore throat - Cardiovascular Cardiovascular: Denies chest pain - Respiratory Respiratory: No chest congestion,
[2020-09-10 15:10] VITALS: BP 143/81; PULSE 99; RESP 14; TEMP 36.9; O2SAT 100
== END 2020-09-10 15:15 | disposition home or self-care (01) ==
PROVIDERS: Emergency Provider Nurse Practitioner Family; PCP Family Medicine
DX: K52.9 Noninfective gastroenteritis and colitis, unspecified (principal); G43.709 Chronic migraine without aura, not intractable, without status migrainosus
CPT/HCPCS: 99201

== ENCOUNTER 2020-11-13 16:40 | Emergency (ER) | payer BC, SELFPAY ==
[2020-11-13 17:10] VITALS: BP 162/92; PULSE 85; RESP 19; TEMP 36.6; O2SAT 98; BMI 24.3
--- NOTE | 2020-11-13 17:37 | HMH.EDUTC ---
[facility] [place] Disposition Clinical Impression: Torticollis Disposition: Home, Self-Care Condition on Discharge: Good Instructions: DI for Torticollis, Cyclobenzaprine, Etodolac Additional Instructions: *Etodolac dong 6 hours with meal as needed for pain/inflammation *Not additional anti-inflammatory like motrin, aleve, advil with the above amount of ibuprofen. You can still take Tylenol every 4 hours as needed if you need something else for pain *Ice 20 minutes every 2 hours for the first 48 hours after the initial injury followed by moist heat every 20 minutes 3-4 times a day to affected area *Muscle relaxer every 8 hours as needed for muscle spasms but remember, it WILL cause drowsiness You cannot take it and drive, operate machinery or care for small children. *Keep this area active, no movement leads to more stiffness, However take it easy and avoid heavy lifting pushing or pulling *Follow up with you family doctor if no improvement for further treatment Follow up with Family Doctor if no improvement or any worsening of symptoms Prescriptions: Etodolac [Etodolac 200mg Cap*] 200 mg PO Q6H PRN #20 cap PRN Reason: Moderate Pain Transmission Status: Pending to [facility] Cyclobenzaprine HCl [Flexeril 10mg tablet] 10 mg PO TID PRN #15 tab PRN Reason: Muscle Spasm Transmission Status: Pending to [facility] Referrals: Alfonso Ortega MD [Primary Care Provider] - As needed Forms: Work/School Release Time of Disposition: 18:02 Medical Decision Making - Morgan Inquiry Pt receiving controlled substance: No Morgan was queried for this patient: No Vital Signs: 11/13/20 17:10 Temperature 97.8 F Temperature Source Oral Pulse Rate [Right Brachial] 85 Respiratory Rate 19 Blood Pressure [Right Arm] 162/92 H Blood Pressure Mean [Right Arm] 115 Blood Pressure Source [Right Arm] Automatic Cuff Blood Pressure Position [Right Arm] Sitting 02 Sat by Pulse Oximetry 98 Oxygen Delivery Method Room Air [facility] [place] HPI - General Stated complaint: left side neck pain across shoulders Time Seen by Provider: 11/13/20 17:37 Mode of Arrival: Ambulatory Source of Information: Patient Limitations: No Limitations Description of Symptoms (Recalled from Triage Doc. by RN): PATIENT C/O NECK PAIN X 2 DAYS HEENT Symptoms (Recalled from RN notes): No Resp Symptoms (Recalled from RN notes): No Skin Symptoms (Recalled from RN notes): No MS Symptoms (Recalled from RN notes): Yes Functional Status (Recalled from RN notes): WNL - History of Present Illness Provider Complaint: Patient states that he has been having muscle spasms in the left side of his neck and shoulder area for 2 days States that he did this before and had to take muscle relaxers States that it feels tight like the muscle is pulling when he turns his head, denies known injury States that he looks down alot at work and has had this before and was having muscle spasms. - Related Data Previous Rx's Medication Instructions Recorded Cyclobenzaprine HCl [Flexeril 10mg 10 mg PO TID PRN #15 tab 11/13/20 tablet] Etodolac [Etodolac 200mg Cap*] 200 mg PO Q6H PRN #20 cap 11/13/20 Allergies Allergy/AdvReac Type Severity Reaction Status Date / Time No Known Allergies Allergy Verified 03/05/20 14:01 - Worker's Comp Is this a Worker's Comp case?: No [facility] History - Hepatitis A Screen Drug use history?: No High risk sexual behaviors?: No History of sexually transmitted infection?: No Currently employed?: No Childcare worker?: No Do you have indoor plumbing?: Yes Do you have electricity?: Yes Attestation statement:: This patient has been screened for Hepatitis A risk factors. I have reviewed the patient's past medical history: Yes 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: Reports:: Migraine Denies:: Cancer, Diabetes Mellitus Type 1, Diabetes Mellitus Type 2, Hypertension, MRSA Laterality Cases: Bilateral: Tonsillectomy Other Surgeries: Yes: Other Amputation: No Fractu
[2020-11-13 18:03] VITALS: BP 162/92; PULSE 85; RESP 19; TEMP 36.6; O2SAT 98
== END 2020-11-13 18:05 | disposition home or self-care (01) ==
PROVIDERS: Emergency Provider Nurse Practitioner; PCP Family Medicine
DX: M43.6 Torticollis (principal); M62.838 Other muscle spasm
CPT/HCPCS: 99202; G0463

== ENCOUNTER 2021-01-02 11:55 | Emergency (ER) | payer BC, SELFPAY ==
[2021-01-02 11:55] VITALS: BP 140/94; PULSE 82; RESP 16; TEMP 37.2; O2SAT 99; BMI 25.8
--- NOTE | 2021-01-02 11:56 | HMH.EDCP ---
ED Disposition Clinical Impression: Chest pain Qualifiers: Chest pain type: other chest pain Qualified Code(s): R07.89 - Other chest pain Disposition: Home, Self-Care Condition on Discharge: Good Referrals: Alfonso Ortega MD [Primary Care Provider] - 3 days - Critical Care Critical Care Time: No Attestation: On , the high probability of a clinically significant, sudden or life threatening deterioration of the following system(s) required my full and direct attention, intervention and personal management. The time I documented below is in addition to time spent performing reported procedures but includes the following listed in this critical care notation. Medical Decision Making - Medical Records Medical records reviewed: Yes: I reviewed the patient's medical records. - Morgan Inquiry Pt receiving controlled substance: No Vital Signs: 01/02/21 11:55 01/02/21 12:16 Temperature 98.9 F Temperature Source Oral Pulse Rate [Right Radial] 82 77 Respiratory Rate 16 18 Blood Pressure [Right Arm] 140/94 H 132/91 H Blood Pressure Mean [Right Arm] 109 104 Blood Pressure Source [Right Arm] Automatic Cuff Blood Pressure Position [Right Arm] Sitting 02 Sat by Pulse Oximetry 99 99 Oxygen Delivery Method Room Air - Lab Data Lab results reviewed: Yes: I reviewed the patient's lab results. Lab Results 01/02/21 11:55: Troponin I < 0.01 Orders (Tests/Meds): ED MEDICATIONS Discontinued Medications Generic Name Dose Route Start Last Admin Trade Name Freq PRN Reason Stop Dose Admin Aspirin 325 mg 01/02/21 11:57 01/02/21 12:05 Aspirin 325mg Tablet PO 01/02/21 11:58 325 mg ONCE ONE Administration ORDERS Category Date Time Status CXR --portable [XR chest portable] Stat Exams 01/02/21 11:58 Ordered - Radiology Data #1 Image(s): Chest Image Reviewed: Yes I reviewed the patient's radiology results, Yes I reviewed the patient's radiology image Preliminary Findings: Normal/NAD - ECG Data Tracing #1 Normal sinus rhythm, no ST elevation or depression, no ectopy, normal intervals. ECG initial impression date: 01/02/21 ECG initial impression time: 11:54 Medical Decision Narrative: 35yo M evaluated for nosebleeds that have resolved and chest pain. Patient's chest pain is worsened with use of his right upper extremity and therefore seems more musculoskeletal. Troponin is negative. EKG is unremarkable. Chest x-ray is negative. Discussed outpatient follow-up with PCP for further evaluation and management. Patient is appropriate and stable for discharge home at this time. Chest Pain HPI - General Stated Complaint: chest pain Time Seen by Provider: 01/02/21 11:56 Mode of Arrival: Ambulatory Source of Information: Patient Limitations: No Limitations - History of Present Illness HPI narrative: 35yo M presents to the emergency department with chest pain. Patient reports he was at work when he had 2 nosebleeds followed by headache followed by chest pain. One of his coworkers advised to be seen at the emergency department for further evaluation. He is asymptomatic on arrival. His symptoms are alleviated with not using his right upper extremity. He states his chest pain is substernal and worsened with use of his right upper extremity. He denies radiating pain, diaphoresis, nausea/vomiting. He reports he has had chest pain like this previously for some time but has not been evaluated. He denies significant family history for cardiac disease. Patient reports he has nosebleeds with some frequency. Patient does not smoke, drinks on occasion, does not use drugs. - Related Data Prior Cardiac Testing/Procedures: no Echocardiogram, no RONA, no Stress Test, no Stenting, no Cardiac Angiogram, no CTA Chest/CTA Coronary Angiography, no MRI, no CABG Previous Rx's Medication Instructions Recorded Cyclobenzaprine HCl [Flexeril 10mg 10 mg PO TID PRN #15 tab 11/13/20 tablet*
--- NOTE | 2021-01-02 11:58 | XR_ITS ---
PROCEDURE: XR CHEST PORTABLE CLINICAL HISTORY: cp Chest pain COMPARISON: CR CXR2V XR chest 2V from 01/01/[address] angio chest from 03/14/2019 CR CXR2V XR chest 2V from 03/14/2019 FINDINGS: The cardiomediastinal silhouette and pulmonary vascularity are within normal limits. The lungs are clear without infiltrates, suspicious nodules, or pleural effusions. No acute bony abnormalities. IMPRESSION: No acute findings. Dictated by: Edu Singleton MD 01/02/2021 13:34 Edu Singleton MD in [place] 01/02/2021 13:34
[2021-01-02 11:59] VITALS: BMI 25.8
--- NOTE | 2021-01-02 12:12 | PC.NURSE ---
RONALD NAGEL states only wanting troponin on pt, no other labs at this time
[2021-01-02 12:16] VITALS: BP 132/91; PULSE 77; RESP 18; O2SAT 99
[2021-01-02 12:28] LABS: Troponin I < 0.01 ng/ml (0.00-0.034)
[2021-01-02 12:30] VITALS: BP 132/85; PULSE 79; RESP 18; O2SAT 98
[2021-01-02 12:49] VITALS: BP 137/81; PULSE 80; RESP 20; TEMP 36.7; O2SAT 99
--- NOTE | 2021-01-03 11:50 | ECG_ITS ---
APPROVED REPORT Exam: Resting ECG HR:78 bpm ECG Measurements Heart Rate 78 AXES TX 148 P 78 QRSd 100 QRS 46 QT 382 T 64 QTc 435 Conclusion Normal sinus rhythm Possible Left atrial enlargement Left ventricular hypertrophy Abnormal ECG Electronically signed by : Massimo Kemp, 01/03/2021 08:53:03
[2021-01-03 16:18] LABS: Chloride 102 mmol/L (98-107); Potassium 4.3 mmoL/L (3.5-5.1); Sodium 139 mmol/L (136-145)
[2021-01-03 16:20] LABS: Blood Urea Nitrogen 13 mg/dl (9-20); Creatinine Clearance Estimated 118 mL/min (50-200); Estimated Glomerular Filt Rate 85 ml/min (>60); GFR (African American) 102 ML/MIN (>60)
[2021-01-03 16:21] LABS: Alanine Aminotransferase 25 U/L (12-78); Albumin Level 4.8 g/dl (3.5-5.0); Albumin/Globulin Ratio 1.5 (1.1-1.8); Alkaline Phosphatase 47 U/L (38-126); Anion Gap 9.3 mEq/L (5-15); Aspartate Amino Transferase 36 U/L (17-59); Carbon Dioxide 32 mmol/L (22.0-30.0); Cholesterol 142 mg/dl (140-200); Globulin 3.2 g/dL (1.3-3.2); Glucose 77 mg/dl (74-100); Triglycerides 71 mg/dl (30-150); VLDL Cholesterol 14 mg/dL (0-40)
[2021-01-03 16:22] LABS: Chol/HDL Ratio 3.2 (1-3.5); HDL Cholesterol 45 mg/dl (40-60)
[2021-01-03 16:33] LABS: Direct LDL Cholesterol 65.67 mg/dL (100-129)
[2021-01-03 16:38] LABS: Hemoglobin A1C 4.8 % (4.0-6.0)
== END 2021-01-02 12:51 | disposition home or self-care (01) ==
PROVIDERS: Emergency Provider Family Medicine; PCP Family Medicine
DX: R07.89 Other chest pain (principal); G43.909 Migraine, unspecified, not intractable, without status migrainosus
CPT/HCPCS: 71045; 80053; 80061; 83036; 84484; 93005; 99283

== ENCOUNTER → 2021-01-07 15:27 | Outpatient (CLI) | payer OTHER, SELFPAY ==
[2021-01-07 17:06] LABS: Alanine Aminotransferase 19 U/L (12-78); Albumin Level 4.8 g/dl (3.5-5.0); Albumin/Globulin Ratio 1.5 (1.1-1.8); Alkaline Phosphatase 48 U/L (38-126); Aspartate Amino Transferase 29 U/L (17-59); Blood Urea Nitrogen 12 mg/dl (9-20); Calcium 9.2 mg/dl (8.4-10.2); Carbon Dioxide 32 mmol/L (22.0-30.0); Chloride 104 mmol/L (98-107); Chol/HDL Ratio 3.4 (1-3.5); Cholesterol 151 mg/dl (140-200); Estimated Glomerular Filt Rate 85 ml/min (>60); GFR (African American) 102 ML/MIN (>60); Globulin 3.1 g/dL (1.3-3.2); Glucose 91 mg/dl (74-100); HDL Cholesterol 45 mg/dl (40-60); Sodium 141 mmol/L (136-145); Total Protein,Serum 7.9 g/dl (6.3-8.2); Triglycerides 199 mg/dl (30-150); VLDL Cholesterol 40 mg/dL (0-40)
[2021-01-07 17:17] LABS: Direct LDL Cholesterol 67.62 mg/dL (100-129)
[2021-01-07 21:29] LABS: Hemoglobin A1C 4.7 % (4.0-6.0)
== END ==
PROVIDERS: Visit Provider Nurse Practitioner Family
DX: Z00.00 Encounter for general adult medical examination without abnormal findings (principal); R73.09 Other abnormal glucose
CPT/HCPCS: 36415; 80053; 80061; 83036

== ENCOUNTER → 2021-01-18 08:46 | Outpatient (CLI) | payer OTHER, SELFPAY ==
--- NOTE | 2021-01-18 08:51 | CT_ITS ---
PROCEDURE: CT ABDOMEN PELVIS WO/W CON CLINICAL INDICATION: ABD PAIN, GENERALIZED Most of left side has pain after BM and urination Pain radiates to back Nausea and some diarrhea No prior COMPARISON: No exams were available for comparison TECHNIQUE: IV Contrast: 75ML Isovue 370 Oral Contrast None Axial images obtained with sagittal and coronal reformats. All CT scans at the facility use one or more dose reduction, viz: automated exposure control, ma/kV adjustment per patient size (including targeted exams where dose is matched to indication, i.e. head), or iterative reconstruction technique. FINDINGS: LOWER THORAX: No acute finding ABDOMEN & PELVIS: The liver, spleen, adrenal glands, and pancreas have an unremarkable appearance. No renal or ureteral calculi. There is mild ptosis of the right kidney. No hydronephrosis. No renal mass. No evidence of appendicitis. No intestinal obstruction or free air. There is mild thickening of the urinary bladder. This is nonspecific. No pelvic mass or abnormal fluid collection. No acute bony finding. There is a 10 mm calcific density in the left pelvic region. This is felt represent a phleboliths and not a ureteral stone and is felt to be medial to the left ureter. No hydronephrosis or ureteral dilatation. No acute bony findings. There is mild thoracolumbar curvature convex right. IMPRESSION: 1. There is mild urinary bladder wall thickening which may be seen with incomplete distension, chronic outflow obstruction, or cystitis. 2. Otherwise negative Dictated by: Edu Singleton MD 01/19/2021 13:07 Edu Singleton MD in [facility] 01/19/2021 13:08
== END ==
PROVIDERS: PCP Internal Medicine Adolescent Medicine; Visit Provider Internal Medicine Adolescent Medicine
DX: R10.84 Generalized abdominal pain (principal)
CPT/HCPCS: 74178; Q9967

== ENCOUNTER → 2021-03-12 15:04 | Outpatient (CLI) | payer OTHER, SELFPAY ==
[2021-03-12 16:51] LABS: Coronavirus 19 IgG Antibody Positive (Negative); Coronavirus 19 IgM Antibody Negative (Negative)
== END ==
PROVIDERS: Visit Provider Surgery
DX: Z01.812 Encounter for preprocedural laboratory examination (principal); Z20.822 Contact with and (suspected) exposure to COVID-19; Z13.810 Encounter for screening for upper gastrointestinal disorder
CPT/HCPCS: 36415; 86328

== ENCOUNTER 2021-03-13 07:54 | Day surgery (SDC) | payer OTHER, SELFPAY ==
[2021-03-11 10:57] VITALS: BMI 25.8
[2021-03-13] VITALS (11 sets, daily range): BP systolic 105–144; BP diastolic 64–94; PULSE 62–82; RESP 16–18; TEMP 36.6–36.7; O2SAT 97–100
--- NOTE | 2021-03-13 09:23 | [facility]H.SCOPE ---
- Procedure: Date: 03/13/21 Patient Date of :: 1985 Procedure Performed:: Esophagogastroduodenoscopy with biopsies Indications:: Patient is a 35-year-old male referred by Dr. Massimo Kemp for upper endoscopy. He has had some symptoms for about 2 months. He was seen in the emergency department on 01/02/2021. At that time he had been at work and developed nosebleeds followed by headache followed by what is described as chest pain which was atypical. This seemed to be worse with use of the right upper extremity. Cardiac assessment in the emergency department was unremarkable. His symptoms have persisted and he describes mid umbilical pain radiating through to the epigastric area and into his back. It is relatively constant. It seems to limit his ability to stand up straight and lay on his side. He does describe some postprandial bloating and rare vomiting. He underwent outpatient CT scan on 01/19 with and without IV contrast with no oral contrast. This is relatively unremarkable showing some possible mild urinary bladder thickening. He was sent for surgical consultation for upper endoscopy. Performing Provider:: Ubaldo Duncan MD Referring Provider:: Massimo Kemp MD Sedation:: MAC sedation Procedure:: Patient was taken to endoscopy procedure room. He was positioned in a lateral decubitus position. Adequate intravenous sedation was achieved with anesthesia titration of propofol. Olympus endoscope was inserted via the oropharynx. Advanced to the esophagus. Esophagus appeared normal. Stomach was cannulated and insufflated. Retroflexion was performed which revealed no evidence of any obvious significant hiatal hernia. Gastric mucosa appeared relatively unremarkable with only some mild nonerosive gastritis. Gastric antral mucosal biopsies obtained for CLOtest for H. pylori. Pylorus was traversed. Duodenal bulb and duodenal sweep appeared unremarkable. Biopsy was obtained. Endoscope was withdrawn into the gastric lumen. Biopsies obtained in the antrum for histopathologic analysis. A couple of distal esophageal biopsies were obtained. Findings:: Unremarkable appearing upper endoscopy Recommendations:: Follow-up on histopathology. Unclear as to the patient's symptom etiology. I will order a gallbladder ultrasound to be done prior to follow-up in the office. Complications:: None immediately apparent Estimated blood obtained (mL): 2
--- NOTE | 2021-03-13 11:29 | P.PN_ITS ---
[facility] Anesthesia Checklist - Patient Identification Patient Identification: Arm Band - Structural Data Admitted From: Home Planned Operative Procedure/s: EGD Consent for Planned Operative Procedure(s) Verified: Yes Verified Documents: Surgical Consent, History and Physical - NPO Status Verified Time NPO: 00:00 - Airway Assessment C-Spine Mobility Assessed: Yes TMJ Mobility Assessed: Yes Dentition: Good Dentition - Anesthesia Plan Anesthesia Risk discussed: Yes Anesthesia Plan: Verified ASA Class: I Anesthesia Type: MAC [facility] History 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: Reports:: Migraine Denies:: Cancer, Diabetes Mellitus Type 1, Diabetes Mellitus Type 2, Hypertension, Internal Pacemaker, MRSA, Seizures *Have you ever received a pneumonia vaccine?: No *Have you received a flu vaccine this season?: No Anesthesia experience/problems:: None Laterality Cases: Bilateral: Tonsillectomy Other Surgeries: Yes: No Previous Surgery, Other. No: Pacemaker Amputation: No Fractures: No - *Social History Last grade of school completed: High school graduate Smoking Status: Never smoker Alcohol Intake: current Alcohol Intake Frequency:: a few times a month Substance Use Type: denies use *Occupational Status:: unemployed Housing: house Household Members: significant other, family *Travel in the last 8 weeks: None Family Hx:: Diabetes
--- NOTE | 2021-03-13 11:45 | PC.NURSE ---
PT REPORTS PAIN IS MUCH BETTER AND READY FOR DISCHARGE. POST OP TEACHING COMPLETED.
== END 2021-03-13 11:45 | disposition home or self-care (01) ==
LOC: OUTP 07:55
PROVIDERS: PCP Internal Medicine Adolescent Medicine; Visit Provider Surgery
PROC: 0DJ08ZZ Inspection of Upper Intestinal Tract, Via Natural or Artificial Opening Endoscopic (ICD-10-PCS; CPT 43235; principal; 2021-03-13 08:30)
DX: R10.13 Epigastric pain (principal); R07.89 Other chest pain; G43.909 Migraine, unspecified, not intractable, without status migrainosus; Z83.3 Family history of diabetes mellitus
CPT/HCPCS: 43239; 87339; 96374

== ENCOUNTER → 2021-03-20 07:51 | Outpatient (CLI) | payer OTHER, SELFPAY ==
--- NOTE | 2021-03-20 07:54 | US_ITS ---
PROCEDURE: US GALLBLADDER CLINICAL INDICATION: epigastric pain COMPARISON: No exams were available for comparison FINDINGS: Pancreas: Visualized pancreas is unremarkable. Liver: The liver is normal in size and demonstrates homogeneous echotexture. No intra or extrahepatic biliary dilation is noted. The common bile duct measures 0.3 centimeters.. There is appropriate direction of blood flow within a non dilated portal vein. Right kidney: Unremarkable appearing. No hydronephrosis. Gallbladder: No stones are evident. There is sludge with multiple internal septations of the gallbladder. There is no gallbladder wall thickening. Common duct is normal in diameter. IMPRESSION: Sludge in the gallbladder. Gallbladder septations. Otherwise unremarkable study. Dictated by: Carmen Nova 03/20/2021 11:00 Carmen Nova in OV 03/20/2021 11:00
== END ==
PROVIDERS: PCP Internal Medicine Adolescent Medicine; Visit Provider Surgery
DX: R10.13 Epigastric pain (principal)
CPT/HCPCS: 76705

== ENCOUNTER → 2021-06-05 17:16 | Outpatient (CLI) | payer OTHER, SELFPAY | PROVIDERS: Visit Provider Urology | DX: Z20.822 Contact with and (suspected) exposure to COVID-19 (principal) | CPT/HCPCS: U0003 ==

== ENCOUNTER 2021-06-07 07:17 | Day surgery (SDC) | payer OTHER, SELFPAY ==
[2021-06-07] VITALS (7 sets, daily range): BP systolic 101–145; BP diastolic 52–95; PULSE 65–75; RESP 16–18; TEMP 36.2–43; O2SAT 97–100
--- NOTE | 2021-06-07 10:07 | P.PN_ITS ---
[facility] Anesthesia Checklist - Patient Identification Patient Identification: Arm Band - Structural Data Admitted From: Home Planned Operative Procedure/s: vasectromy Consent for Planned Operative Procedure(s) Verified: Yes Verified Documents: Surgical Consent, History and Physical - NPO Status Verified Time NPO: 00:00 - Additional verifications Anesthesia Reactions: No Hx Blood Transfusions: No Blood Transfusion Reaction: No - Airway Assessment C-Spine Mobility Assessed: Yes (mp2) TMJ Mobility Assessed: Yes Dentition: Good Dentition - Neurological Assessment Level of Consciousness: Awake, Alert - Anesthesia Plan Anesthesia Risk discussed: Yes Anesthesia Plan: Verified ASA Class: I Anesthesia Type: MAC [facility] History I have reviewed the patient's past medical history: Yes 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: Reports:: Migraine Denies:: Cancer, Diabetes Mellitus Type 1, Diabetes Mellitus Type 2, Hypertension, Internal Pacemaker, MRSA, Seizures *Have you ever received a pneumonia vaccine?: No *Have you received a flu vaccine this season?: No Other 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: Denies: Blood Transfusion Reaction Anesthesia experience/problems:: nac Laterality Cases: Bilateral: Tonsillectomy Other Surgeries: Yes: No Previous Surgery, EGD, Other. No: Pacemaker Amputation: No Fractures: No - *Social History Last grade of school completed: High school graduate Smoking Status: Never smoker Alcohol Intake: current Alcohol Intake Frequency:: a few times a month Substance Use Type: denies use *Occupational Status:: employed Housing: house Household Members: significant other, family *Travel in the last 8 weeks: None Family Hx:: Diabetes
--- NOTE | 2021-06-07 12:53 | P.OP_ITS ---
Date of procedure: 06/07/21 Pre-op Diagnosis:: Sterilization Post-op Diagnosis:: Sterilization Procedure performed:: Vasectomy Surgeon:: Lars Jeffers MD AMBULANCE OPERATIONS SUPERVISOR:: Ronan Rodriguez Anesthesia: MAC Estimated blood loss (mL): 0 Clinical Note:: 35-year-old male who was previously seen for vasectomy consultation presents for the procedure today. Operative findings:: Scrotal and testicular examination within normal limits. Vasectomy was performed without complication. Operative note:: Patient taken to the operating suite after informed consent was obtained. Was placed on the operating table in the supine position and monitored anesthesia care administered. He was then prepped and draped in the standard surgical fashion. The left vas was palpated and brought up to the anterior midline raphae. Local anesthetic was placed under the skin and in and around the left vas. An incision was then made in the midline raphae and the tenaculum was used to grasp the vas and it was brought up through the incision. The vasal sheath was then incised and the vas proper was isolated from its surrounding a dventitial tissue. 1 Hemoclip was placed distally and tube was placed proximally. A 1 cm segment was then excised and the basal lumens were cauterized. Hemostasis achieved and the left vas dropped back into the left hemiscrotum. The right vas was then brought up through the incision and local anesthetic placed. Identical procedure was performed as on the patient's left side. The right vas was dropped back into the hemiscrotum and a 3-0 chromic was placed in the incision in a horizontal mattress fashion. A sterile dressing and jockstrap were placed afterwards. Patient tolerated the procedure well. Condition: stable Disposition: same day Specimens:: Vas segments were not sent Complications:: None
== END 2021-06-07 11:30 | disposition home or self-care (01) ==
LOC: OR 07:18
PROVIDERS: PCP Internal Medicine Adolescent Medicine; Visit Provider Urology
PROC: (CPT 55250; principal; 2021-06-07 09:00)
DX: Z30.2 Encounter for sterilization (principal); G43.909 Migraine, unspecified, not intractable, without status migrainosus; Z83.3 Family history of diabetes mellitus
CPT/HCPCS: 55250; 96374

== ENCOUNTER 2021-10-07 20:59 | Emergency (ER) | payer OTHER, SELFPAY ==
[2021-10-07 21:00] VITALS: BP 140/91; PULSE 83; RESP 16; TEMP 36.8; O2SAT 97; BMI 25.7
[2021-10-07 21:30] VITALS: BP 122/88; PULSE 82; O2SAT 99
--- NOTE | 2021-10-07 21:49 | CT_ITS ---
PROCEDURE INFORMATION: Exam: CT Abdomen And Pelvis With Contrast Exam date and time: 10/07/2021 9:49 PM Age: 36 years old Clinical indication: Abdominal pain; Localized; Right lower quadrant (rlq); Patient HX: Rlq pain that started today; Additional info: Abd pain TECHNIQUE: Imaging protocol: Computed tomography of the abdomen and pelvis with contrast. Radiation optimization: All CT scans at this facility use at least one of these dose optimization techniques: automated exposure control; mA and/or kV adjustment per patient size (includes targeted exams where dose is matched to clinical indication); or iterative reconstruction. Contrast material: ISOVUE; Contrast volume: 75 ml; Contrast route: IV; COMPARISON: CT ABDOMEN PELVIS WO/W CON 01/18/2021 9:06 AM FINDINGS: Lungs: No mass/infiltrate at either lung base. No pleural effusion. Liver: The liver is normal in size and attenuation. No intrahepatic biliary dilitation. Gallbladder and bile ducts: Normal. No calcified stones. No ductal dilation. Gallbladder wall thickness is normal. Pancreas: Normal. No ductal dilation. Spleen: Normal. No splenomegaly. Adrenal glands: Normal. No mass. Kidneys and ureters: Normal. No hydronephrosis. Stomach and bowel: Unremarkable. No obstruction. No mucosal thickening. Small bowel mesentery is normal. Appendix: Unremarkable. Intraperitoneal space: Unremarkable. No free air. No significant fluid collection. Vasculature: Unremarkable. No abdominal aortic aneurysm. There are calcified phleboliths within the pelvis. Lymph nodes: Unremarkable. No enlarged lymph nodes. Urinary bladder: Unremarkable as visualized. Limited distention. Reproductive: Unremarkable as visualized. Bones/joints: Mild dextroconvex thoracolumbar scoliosis again identified. No acute fracture. Soft tissues: Unremarkable. IMPRESSION: No acute process within the abdomen or pelvis.
[2021-10-07 22:00] VITALS: BP 136/67; PULSE 86; O2SAT 99
[2021-10-07 22:05] LABS: Microscopic, Urine URINE MICROSCOPIC (MICROSCOPIC)
--- NOTE | 2021-10-07 22:05 | HMH.EDNVD ---
ED Disposition Clinical Impression: Abdominal pain Qualifiers: Abdominal location: epigastric Qualified Code(s): R10.13 - Epigastric pain Disposition: Home, Self-Care Condition on Discharge: Good Instructions: DI for Acute Abdominal Pain Additional Instructions: call pcp in am Referrals: Massimo Kemp MD [Primary Care Provider] - - Critical Care Critical Care Time: No Attestation: On 10/07/21, the high probability of a clinically significant, sudden or life threatening deterioration of the following system(s) required my full and direct attention, intervention and personal management. The time I documented below is in addition to time spent performing reported procedures but includes the following listed in this critical care notation. Medical Decision Making - Medical Records Medical records reviewed: Yes: I reviewed the patient's medical records. - Morgan Inquiry Pt receiving controlled substance: No Vital Signs: 10/07/21 21:00 Temperature 98.3 F Temperature Source Oral Pulse Rate [Left] 83 Respiratory Rate 16 Blood Pressure [Right Arm] 140/91 H Blood Pressure Mean [Right Arm] 107 02 Sat by Pulse Oximetry 97 Oxygen Delivery Method Room Air - Lab Data Lab results reviewed: Yes: I reviewed the patient's lab results. Lab Results 10/07/21 21:34: Urine Color Yellow, Urine Appearance Clear, Urine pH 6.0, Ur Specific [place] 1.025, Urine Protein Negative, Urine Glucose (UA) Negative, Urine Ketones Negative, Urine Blood Negative, Urine Nitrate Negative, Urine Bilirubin Negative, Urine Urobilinogen 0.2, Ur Leukocyte Esterase Negative, Urine RBC 3-5, Urine WBC 5-10, Ur Squamous Epith Cells Occasional, Urine Bacteria Trace 10/07/21 21:34: WBC 7.5, RBC 4.52 L, Hgb 13.8 L, Hct 40.1 L, MCV 88.8, MCH 30.5, MCHC 34.4, RDW 13.6, Plt Count 179, MPV 9.4, Neut % (Auto) 79.6, Lymph % (Auto) 12.3, Sampson % (Auto) 6.4, Eos % (Auto) 1.1, Baso % (Auto) 0.5, Neut # (Auto) 5.9, Lymph # (Auto) 0.9, Sampson # (Auto) 0.5, Eos # (Auto) 0.1, Baso # (Auto) 0.0 10/07/21 21:34: Sodium 142, Potassium 3.8, Chloride 103, Carbon Dioxide 31 H, Anion Gap 11.8, BUN 15, Creatinine 1.00, Estimated Creat Clear 119, Estimated GFR 84, Est GFR ( Amer) 102, Glucose 98, Calcium 9.7, Total Bilirubin 1.2, AST 37, ALT 22, Alkaline Phosphatase 45, C-Reactive Protein 2.8, Total Protein 7.8, Albumin 4.7, Globulin 3.1, Albumin/Globulin Ratio 1.5, Amylase 118 H, Lipase 104 10/07/21 21:34: ESR 16 H 10/07/21 21:34: Procalcitonin 0.102 Result diagrams: 10/07/21 21:34 10/07/21 21:34 Orders (Tests/Meds): ED MEDICATIONS Discontinued Medications Generic Name Dose Route Start Last Admin Trade Name Freq PRN Reason Stop Dose Admin Famotidine 20 mg 10/07/21 21:50 10/07/21 21:55 Famotidine 20mg/2ml Vial IV 10/07/21 21:51 20 mg ONCE ONE Administration Sodium Chloride 1,000 mls @ 999 mls/hr 10/07/21 22:00 10/07/21 21:55 Sod Chlor 0.9% 1000ml Bag IV 10/07/21 23:00 999 mls/hr .Q1H1M AVI Administration Iopamidol 75 ml 10/07/21 22:40 10/07/21 22:41 Iopamidol-370 (76%);100ml Bottle IV 10/07/21 22:41 75 ml ONCE ONE Administration Ketorolac Tromethamine 30 mg 10/07/21 21:50 10/07/21 21:55 Ketorolac 30mg/Ml Vial IV 10/07/21 21:51 30 mg ONCE ONE Administration Ondansetron HCl 4 mg 10/07/21 21:50 10/07/21 21:56 Ondansetron 4mg/2ml Vial IV 10/07/21 21:51 4 mg ONCE ONE Administration Sodium Chloride 10 ml 10/07/21 22:40 10/07/21 22:41 Sodium Chloride 0.9% 10ml Syr (Rad Only) IV 10/07/21 22:41 10 ml ONCE ONE Administration - CT Data CT Scan: Abdomen, Pelvis Time Received: 23:[address] Reviewed: Yes: I have viewed the radiologist's interpretation Preliminary Findings: Normal/NAD Medical Decision Narrative: pt with stable exam and call pcp in am Nausea/Vomiting/Diarrhea HPI - General Chief complaint: Abdominal Pain Stated complaint: vomiting Time Seen by Provider: 10/07/21 21:30 M
--- NOTE | 2021-10-07 22:05 | PC.NURSE ---
pt stated that he induced vomiting before coming into the er tonight but only got out a small amount of clear greenish bile
[2021-10-07 22:06] LABS: Basophils % 0.5 % (0.1-2.0); Eosinophils # 0.1 K/mm3 (0.0-0.4); Eosinophils % 1.1 % (0.1-12.0); Hematocrit 40.1 % (42.0-52.0); Hemoglobin 13.8 g/dL (14.1-18.0); Lymphocytes # 0.9 K/mm3 (0.7-4.5); Lymphocytes % 12.3 % (10-50); Mean Corpuscular HGB Conc 34.4 g/dL (31.8-35.4); Mean Corpuscular Hemoglobin 30.5 pg (27.0-31.2); Mean Corpuscular Volume 88.8 fl (80-94); Mean Platelet Volume 9.4 fl (7.4-10.4); Monocytes # 0.5 K/mm3 (0.1-1.0); Monocytes % 6.4 % (1.7-9.3); Neutrophils # 5.9 K/mm3 (1.8-7.8); Neutrophils % 79.6 % (37.0-80.0); Platelet Count 179 K/mm3 (142-424); Red Blood Count 4.52 M/mm3 (4.60-6.20); Red Cell Distribution Width 13.6 % (11.5-17.5); White Blood Count 7.5 K/mm3 (4.8-10.8)
[2021-10-07 22:07] LABS: Appearance,Urine CLEAR (Clear); Bilirubin,Urine Negative (Negative); Blood, Urine Negative (Negative); Color,Urine YELLOW (Yellow); Glucose,Urine (UA) Negative (Negative); Ketones,Urine Negative (Negative); Leukocyte Esterase,Urine Negative (Negative); Nitrate,Urine Negative (Negative); Protein,Urine Negative (Negative); Specific Gravity, Urine 1.025 (1.005-1.030); Urobilinogen,Urine 0.2 EU/dl (0.2)
[2021-10-07 22:11] LABS: Alanine Aminotransferase 22 U/L (12-78); Albumin Level 4.7 g/dl (3.5-5.0); Albumin/Globulin Ratio 1.5 (1.1-1.8); Alkaline Phosphatase 45 U/L (38-126); Amylase 118 U/L (30-110); Anion Gap 11.8 mEq/L (5-15); Aspartate Amino Transferase 37 U/L (17-59); Bilirubin,Total 1.2 mg/dl (0.2-1.3); Blood Urea Nitrogen 15 mg/dl (9-20); Calcium 9.7 mg/dl (8.4-10.2); Carbon Dioxide 31 mmol/L (22.0-30.0); Chloride 103 mmol/L (98-107); Creatinine Clearance Estimated 119 mL/min (50-200); Estimated Glomerular Filt Rate 84 ml/min (>60); GFR (African American) 102 ML/MIN (>60); Globulin 3.1 g/dL (1.3-3.2); Glucose 98 mg/dl (74-100); Lipase 104 U/L (23-300); Potassium 3.8 mmoL/L (3.5-5.1); Sodium 142 mmol/L (136-145); Total Protein,Serum 7.8 g/dl (6.3-8.2)
[2021-10-07 22:17] LABS: C-Reactive Protein 2.8 mg/L (0-4)
[2021-10-07 22:28] LABS: Bacteria,Urine Trace /lpf; Squamous Epithelial Cell,Urine Occasional #/hpf (0-5)
[2021-10-07 22:30] VITALS: BP 119/71; PULSE 74; O2SAT 96
[2021-10-07 22:30] LABS: Procalcitonin 0.102 ng/mL (0.0-2.0)
[2021-10-07 22:48] LABS: Erythrocyte Sedimentation Rate 16 mm/hr (0-15)
[2021-10-07 23:00] VITALS: BP 115/75; PULSE 66; O2SAT 100
[2021-10-07 23:48] VITALS: BP 120/81; PULSE 73; RESP 16; TEMP 36.6; O2SAT 100
== END 2021-10-07 23:54 | disposition home or self-care (01) ==
PROVIDERS: Emergency Provider Emergency Medicine; PCP Internal Medicine Adolescent Medicine
DX: R10.13 Epigastric pain (principal); R11.2 Nausea with vomiting, unspecified; G43.709 Chronic migraine without aura, not intractable, without status migrainosus
CPT/HCPCS: 74177; 80053; 81001; 82150; 83690; 84145; 85025; 85651; 86140; 96365; 96375; 99283; J2405; Q9967

== ENCOUNTER 2021-10-08 19:25 | Emergency (ER) | payer OTHER, SELFPAY ==
[2021-10-08 20:39] VITALS: BP 123/78; PULSE 78; RESP 16; TEMP 36.9; O2SAT 100; BMI 25.7
--- NOTE | 2021-10-08 20:48 | HMH.EDUTC ---
[facility] [place] Clinical Impression: Abdominal pain Qualifiers: Abdominal location: unspecified location Qualified Code(s): R10.9 - Unspecified abdominal pain Disposition: Still a Patient Condition on Discharge: Fair Referrals: Massimo Kemp MD [Primary Care Provider] - Time of Disposition: 21:00 Medical Decision Making - Medical Records Medical records reviewed: No: I reviewed the patient's medical records. - Morgan Inquiry Pt receiving controlled substance: No Vital Signs: 10/08/21 20:39 Temperature 98.4 F Temperature Source Oral Pulse Rate [Left] 78 Respiratory Rate 16 Blood Pressure [Right Arm] 123/78 Blood Pressure Mean [Right Arm] 93 02 Sat by Pulse Oximetry 100 Medical Decision Narrative: He was transferred to the er due to his abdominal pain. [facility] [place]PI - General Stated complaint: pain stomach Time Seen by Provider: 10/08/21 20:48 Mode of Arrival: Ambulatory Source of Information: Patient Limitations: No Limitations Description of Symptoms (Recalled from Triage Doc. by RN): pt states he was seen here last night. pt states his pcp says he has sludge in his gallbladder. last night his abd ct was negative. pt c/o pain on the LUQ that radiates into his back. pt reports green and white emesis. pt states he can't take the pain any longer. HEENT Symptoms (Recalled from RN notes): No Resp Symptoms (Recalled from RN notes): No Skin Symptoms (Recalled from RN notes): No MS Symptoms (Recalled from RN notes): No Functional Status (Recalled from RN notes): wnl - History of Present Illness Provider Complaint: He is here with complaints of abdominal pain. This pain has been ongoing since yesterday. It started after he ate [employer] cheese burgers. He has a known history of sludge in his gall bladder . He was in the ER last night with these same complaints. He states that after he was sent home last night his pain returned and it has continued until now. He is also having nausea. He has not vomited since yesterday. - Related Data Home Medications Medication Instructions Recorded Confirmed No Known Home Medications 01/02/21 06/07/21 Allergies Allergy/AdvReac Type Severity Reaction Status Date / Time No Known Allergies Allergy Verified 08/26/21 12:57 - Worker's Comp Is this a Worker's Comp case?: No [facility] History - Hepatitis A Screen Drug use history?: No High risk sexual behaviors?: No History of sexually transmitted infection?: No Currently employed?: No Childcare worker?: No Do you have indoor plumbing?: Yes Do you have electricity?: Yes Attestation statement:: This patient has been screened for Hepatitis A risk factors. I have reviewed the patient's past medical history: Yes 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: Reports:: Migraine Denies:: Cancer, Diabetes Mellitus Type 1, Diabetes Mellitus Type 2, Hypertension, Internal Pacemaker, MRSA, Seizures Other 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: Denies: Blood Transfusion Reaction Laterality Cases: Bilateral: Tonsillectomy Other Surgeries: Yes: No Previous Surgery, EGD, Other. No: Pacemaker Amputation: No Fractures: No Comment: oral surgery - Social History Smoking Status: Never smoker Alcohol Intake: current Alcohol Intake Frequency:: a few times a month Substance Use Type: denies use Occupational Status: employed Housing: house Household Members: significant other, family Family Hx:: Diabetes ROS Obtained: Yes All systems reviewed & no additional complaints - Constitutional Constitutional: Denies chills, Denies fever(s), Reports poor appetite, Reports malaise - Eyes Eyes: Denies eye discharge - ENT Ears, Nose, Mouth, and Throat: Denies dizziness, Denies otalgia, Denies sore throat - Cardiovascular Cardiovascular: Denies chest pain - Respiratory Respiratory: Denies chest congestion, Denies cough, Denies dyspnea, Denies stridor, Denies wheezing - Gastrointestinal Gastrointestingal: Reports: as per HPI - Genitourinary Male Genitourinary:
[2021-10-08 21:21] VITALS: BP 00/0; PULSE 0; RESP 0; TEMP -17.7; TEMP 0
== END 2021-10-08 21:23 | disposition left against medical advice (07) ==
LOC: UTC 21:00 → ER 21:06
PROVIDERS: Emergency Provider Nurse Practitioner Family; PCP Internal Medicine Adolescent Medicine
DX: R10.12 Left upper quadrant pain (principal); G43.709 Chronic migraine without aura, not intractable, without status migrainosus
CPT/HCPCS: 99211

== ENCOUNTER → 2021-10-09 16:29 | Outpatient (CLI) | payer OTHER, SELFPAY ==
[2021-10-09 18:45] LABS: Basophils % 0.4 % (0.1-2.0); Eosinophils # 0.1 K/mm3 (0.0-0.4); Eosinophils % 1.5 % (0.1-12.0); Hematocrit 37.4 % (42.0-52.0); Hemoglobin 12.9 g/dL (14.1-18.0); Lymphocytes # 1.3 K/mm3 (0.7-4.5); Lymphocytes % 27.8 % (10-50); Mean Corpuscular HGB Conc 34.6 g/dL (31.8-35.4); Mean Corpuscular Volume 86.9 fl (80-94); Mean Platelet Volume 9.9 fl (7.4-10.4); Monocytes # 0.5 K/mm3 (0.1-1.0); Monocytes % 10.5 % (1.7-9.3); Neutrophils # 2.7 K/mm3 (1.8-7.8); Neutrophils % 59.8 % (37.0-80.0); Platelet Count 192 K/mm3 (142-424); Red Blood Count 4.31 M/mm3 (4.60-6.20); Red Cell Distribution Width 13.4 % (11.5-17.5); White Blood Count 4.5 K/mm3 (4.8-10.8)
[2021-10-09 18:58] LABS: Alanine Aminotransferase 21 U/L (12-78); Albumin Level 4.6 g/dl (3.5-5.0); Albumin/Globulin Ratio 1.6 (1.1-1.8); Alkaline Phosphatase 45 U/L (38-126); Amylase 81 U/L (30-110); Anion Gap 11.1 mEq/L (5-15); Aspartate Amino Transferase 36 U/L (17-59); Bilirubin,Total 0.8 mg/dl (0.2-1.3); Blood Urea Nitrogen 12 mg/dl (9-20); Calcium 9.4 mg/dl (8.4-10.2); Carbon Dioxide 31 mmol/L (22.0-30.0); Chloride 102 mmol/L (98-107); Estimated Glomerular Filt Rate 95 ml/min (>60); GFR (African American) 115 ML/MIN (>60); Globulin 2.8 g/dL (1.3-3.2); Glucose 84 mg/dl (74-100); Lipase 111 U/L (23-300); Potassium 4.1 mmoL/L (3.5-5.1); Sodium 140 mmol/L (136-145); Total Protein,Serum 7.4 g/dl (6.3-8.2)
== END ==
PROVIDERS: Visit Provider Internal Medicine Adolescent Medicine
DX: R10.84 Generalized abdominal pain (principal)
CPT/HCPCS: 36415; 80053; 82150; 83690; 85025

== ENCOUNTER 2022-01-18 12:03 | Emergency (ER) | payer OTHER, SELFPAY ==
[2022-01-18 12:04] VITALS: BP 122/70; PULSE 80; RESP 16; TEMP 37; O2SAT 98; BMI 25.1
--- NOTE | 2022-01-18 12:21 | HMH.EDUTC ---
[facility] [place] Clinical Impression: Laceration Disposition: Home, Self-Care Condition on Discharge: Good Instructions: DI for Laceration Repair, Laceration Repair, DI for Laceration Repair -- Simple Additional Instructions: Suture instructions: You have required stitches today. Please read the following instructions so you know how to care for them: 1. Keep wound area dry for the first 24 hours. 2 May clean gently with mild soap and water, after 48 hours to prevent crusting over suture knots. 3. You may shower if your provider gives permission but do not take a bath until the skin is healed.. 4. Never leave a wet dressing or Band-Aid on your stitches as this allows bacteria to reach the area and may cause infection. Band-aids can cause the wound to sweat and not recommended to wear for long periods of time Watch for signs of infection: Increasing redness, tenderness or warmth around the suture site Unusual swelling around the site Appearance of pus around each suture or any red streaks Fever If you develop any of the above signs or symptoms of infection, Follow up with Family Physician immediately 5. Suture removal in _10-12___days 6. Return to [facility] or follow up with family doctor for removal. This can be done by any medical provider during regular hours on Thursday through Thursday, by appointment. Referrals: Massimo Kemp MD [Primary Care Provider] - As needed Time of Disposition: 13:00 Medical Decision Making - Morgan Inquiry Pt receiving controlled substance: No Morgan was queried for this patient: No Vital Signs: 01/18/22 12:04 Temperature 98.6 F Temperature Source Oral Pulse Rate [Right] 80 Respiratory Rate 16 Blood Pressure [Right Arm] 122/70 Blood Pressure Mean [Right Arm] 87 Blood Pressure Source [Right Arm] Automatic Cuff Blood Pressure Position [Right Arm] Sitting 02 Sat by Pulse Oximetry 98 Oxygen Delivery Method Room Air [facility] [place] HPI - General Stated complaint: [id number] cut left thumb,home accident Time Seen by Provider: 01/18/22 12:21 Mode of Arrival: Ambulatory Source of Information: Patient Limitations: No Limitations Description of Symptoms (Recalled from Triage Doc. by RN): pt was cooking breakfast this am and cut his left thumb with a knife. pt UTD on tetanus HEENT Symptoms (Recalled from RN notes): No Resp Symptoms (Recalled from RN notes): No Skin Symptoms (Recalled from RN notes): Yes (lac to the left thumb) MS Symptoms (Recalled from RN notes): No Functional Status (Recalled from RN notes): na - History of Present Illness Provider Complaint: Patient states that he was cooking breakfast this morning when the knife slipped and cut him on his left thumb States that he looked at it and knew it needed stitches so he came in to get it checked - Related Data Home Medications Medication Instructions Recorded Confirmed No Known Home Medications 01/02/21 06/07/21 Allergies Allergy/AdvReac Type Severity Reaction Status Date / Time No Known Allergies Allergy Verified 01/18/22 12:19 - Worker's Comp Is this a Worker's Comp case?: No [facility] History - Hepatitis A Screen Drug use history?: No High risk sexual behaviors?: No History of sexually transmitted infection?: No Currently employed?: No Childcare worker?: No Do you have indoor plumbing?: Yes Do you have electricity?: Yes Attestation statement:: This patient has been screened for Hepatitis A risk factors. I have reviewed the patient's past medical history: Yes 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: Reports:: Migraine Denies:: Cancer, Diabetes Mellitus Type 1, Diabetes Mellitus Type 2, Hypertension, Internal Pacemaker, MRSA, Seizures Other 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: Denies: Blood Transfusion Reaction Laterality Cases: Bilateral: Tonsillectomy Other Surgeries: Yes: No Previous Surgery, EGD, Other. No: Pacemaker Amputation: No Fractures: No Comment: oral surgery - Social History Smoking Status: Never smoker Alcohol Intake: donnie
[2022-01-18 13:10] VITALS: BP 122/70; PULSE 80; RESP 16; TEMP 37; O2SAT 98
== END 2022-01-18 13:18 | disposition home or self-care (01) ==
PROVIDERS: Emergency Provider Nurse Practitioner; PCP Internal Medicine Adolescent Medicine
DX: S61.012A Laceration without foreign body of left thumb without damage to nail, initial encounter (principal); W26.0XXA Contact with knife, initial encounter; Y93.9 Activity, unspecified; Y92.000 Kitchen of unspecified non-institutional (private) residence as the place of occurrence of the external cause; G43.909 Migraine, unspecified, not intractable, without status migrainosus; Z83.3 Family history of diabetes mellitus
CPT/HCPCS: 12001; 99212; G0463

== ENCOUNTER → 2022-04-25 08:04 | Outpatient (CLI) | payer OTHER, SELFPAY ==
--- NOTE | 2022-04-25 08:07 | FL_ITS ---
FINAL REPORT CLINICAL HISTORY: RECURRENT VOMITING, Lt sided abd pain FINDINGS: UPPER GI SERIES, single contrast HISTORY: Left upper quadrant abdominal pain, vomiting. PROCEDURE : The patient ingested thick and thin barium contrast. Effervescent crystals were also administered. Spot and overhead films were performed. A total of 52 images were saved. FINDINGS: The esophagus demonstrates no morphologic abnormalities. No mucosal defects are seen and motility appears normal. There is no hiatal hernia identified. The stomach is of normal size, shape and position. No gastric filling defects are seen. The duodenal bulb and sweep appear unremarkable. Gastroesophageal reflux is seen to the mid esophagus. FLUOROSCOPY TIME: 1 minute 8 seconds. IMPRESSION: Gastroesophageal reflux. Otherwise, unremarkable upper GI series. Reviewed, Interpreted and Dictated by Ubaldo Hinton III, MD Transcribed by Annalisa Ruiz PA-C Authenticated and [facility]
== END ==
PROVIDERS: PCP Internal Medicine Adolescent Medicine; Visit Provider Nurse Practitioner Family
DX: R11.10 Vomiting, unspecified (principal)
CPT/HCPCS: 74246

== ENCOUNTER → 2022-05-09 06:53 | Outpatient (CLI) | payer OTHER, SELFPAY ==
--- NOTE | 2022-05-09 06:57 | CT_ITS ---
FINAL REPORT CLINICAL HISTORY: DYSURIA-STONE PROTOCOL, bilat back pain, no hx of stones COMPARISON: October 07, 2021 FINDINGS: Axial CT images of the abdomen and pelvis were obtained without intravenous contrast. Coronal reformatted images were also obtained.This study was performed with techniques to keep radiation doses as low as reasonably achievable (ALARA). Individualized dose reduction techniques using automated exposure control or adjustment of mA and/or kV according to the patient's size were employed. Abdomen: The lung bases are clear. There is no evidence of renal stone or hydronephrosis. The gallbladder is present. The liver, spleen and pancreas have an unremarkable, unenhanced appearance. No mass or adenopathy is seen. No inflammatory process is identified. Pelvis: Images of the pelvis reveal no evidence of ureteral dilation or ureteral stone.No mass or abnormal fluid collection is identified. The appendix is normal. There is partial sacralization of L5 on the right with mild spurring of the SI joints. IMPRESSION: No renal or ureteral stone, or hydronephrosis. No mass or inflammatory process. Partial sacralization of L5 on the right with mild spurring of the SI joints. Reviewed, Interpreted and Dictated by Ubaldo Hinton III, MD Transcribed by Eve Landon Authenticated and . [facility]
== END ==
PROVIDERS: PCP Internal Medicine Adolescent Medicine; Visit Provider Internal Medicine Adolescent Medicine
DX: R30.0 Dysuria (principal)
CPT/HCPCS: 74176

== ENCOUNTER 2022-06-19 09:00 | Outpatient (RCR) | payer OTHER, SELFPAY ==
--- NOTE | 2022-05-21 14:26 | HMH.PTOPEV ---
PT Outpatient Evaluation Rehab PT Outpatient Evaluation Start: 05/21/22 13:50 Freq: Status: Active Protocol: Document 05/21/22 14:14 ANDREW (Rec: 05/21/22 14:26 PHORJOSH [id number]) Electronically Signed By Zackary Chatterjee, PT 05/21/22 14:14 Outpatient Therapy Subjective History Subjective History Pt is 36 yoaam who presents with c/o pain in low back that is constant and continuous with insidious onset of symptoms. He reports having difficulty finding any comfortabl position and has been sleeping in a chair since the symptoms began. He reports his job requires heavy lifting on a constant basis and he has been placed on light duty at this time, but even standing for prolonged periods increases the pain. He had CT of his abdomen which incidentally noted sacralization of L5 vertebral level. He currently c/o severe pain (10/10), but shows no outward signs of pain. Chief Complaint Pain,Stiff Symptom Type Ache,Burning Symptoms Relieved By Nothing Symptoms Aggravated By Supine,Sitting,Standing, Bending/Stooping,Physical Activity,Twisting,Walking, Lifting Prior Functional Limitations None Current Functional Limitations Lifting,Driving,Sleeping, Standing,Sitting,Recreation Activity,Walking,Bending/ Stooping Symptom Description Constant and Continuous Level of pain today (0-10) 10 Pain scale - at its worst (0-10) 10 Lumbopelvic Eval Posture Lumbar Spine Posture Standing Position Increased Lordosis Palapation tenderness bilateral lumbar spinal tenderness Yes Lumbar/Sacral Palpation Findings Tenderness Accessory Movement L-spine Vertebrae Accessory Movements Central P/A [place] that Elicit Symptoms L2 bilateral L3 bilateral L4 bilateral Range of Motion Lumbar Spine Active Flexion Range of 0-65 Motion (degrees) Lumbar Spine Active Extension Range of 0-20 Motion (degrees) Left Lumbar Spine Lateral Flexion Active 0-20 Range of Motion (degrees
--- NOTE | 2022-06-19 10:41 | HMH.RHREAS ---
Rehab Reassessment Rehab OP Re-assessment Start: 06/19/22 10:35 Freq: Status: Active Protocol: Document 06/19/22 10:37 ANDREW (Rec: 06/19/22 10:41 ANDREW [id number]) Electronically Signed By Zackary Chatterjee, PT 06/19/22 10:37 Rehab Re-assessment Subjective Subjective Pt reports 7/10 pain this date . They let me go from work because I was moving too slow, but maybe that will let my back heal up a little now. Objective Objective Notes Lumbar AROM: Remains WFL throughout. B lumbar paraspinal tenderness 1/ with continued muscle spasm noted. Pain with vertebral P/A glides at L3-L5 levels. Assessment Progress Assessment Progressing as Expected Assessment Notes Pt has shown decreased pain overall from initial evaluation and is tolerateing all HEP without difficulty. He remains somewhat rigid with standing posture and stiffness causes difficulty with lumbo- pelvic mobility. Remains mildly tender to palpation. Patient goals met ST,2,3,4,5 Goals Not Met LT,2,3,4,5 Revised Goals none Plan Plan Continue per initial POC. Frequency of Therapy 2 x/wk Duration of therapy 4 wks Time and Billing Re-Eval Time 14 Re-Eval Billing Units 1 PHYSICIAN CERTIFICATION: I certify the specified therapy services for Guy Hernandez are required, authorized, and reviewed every 30 days.
== END 2022-06-19 09:05 | disposition home or self-care (01) ==
LOC: PT 09:00
PROVIDERS: PCP Internal Medicine Adolescent Medicine; Visit Provider Nurse Practitioner Family
DX: M54.50 Low back pain, unspecified (principal)
CPT/HCPCS: 97010; 97014; 97035; 97110; 97140; 97163; 97164; G0283

== ENCOUNTER → 2022-07-09 08:17 | Outpatient (CLI) | payer OTHER, SELFPAY ==
--- NOTE | 2022-07-09 08:18 | MR_ITS ---
FINAL REPORT CLINICAL HISTORY: LOW BACK PAIN for 3 months. no injury or trauma. 16ml prohance given. FINDINGS: Multiplanar MR imaging of the lumbar spine was performed without and with contrast. On the sagittal T2-weighted images, disc degeneration is seen at L4-5. The vertebral alignment is normal. There is no evidence of fracture. The conus is seen at approximately the L1 level and has an unremarkable appearance. T12-L1: No significant canal stenosis or neural foraminal narrowing is seen. L1-2: No significant canal stenosis or neuroforaminal narrowing is seen. L2-3: No significant canal stenosis or neuroforaminal narrowing is seen. L3-4: No significant canal stenosis or neuroforaminal narrowing is seen. L4-5: An annular disc bulge is present. There is a posterior midline annular tear. There is a central/left paracentral disc protrusion which mildly indents the thecal sac. There is mild right and moderate left neural foraminal narrowing. L5-S1: There is partial sacralization of L5. No significant canal stenosis or neuroforaminal narrowing is seen. Contrast enhancement of the posterior L4-5 disc consistent with the annular tear. No other disc protrusion. IMPRESSION: Annular disc bulge, posterior midline annular tear and a central/left paracentral disc protrusion at L4-5 with mild right and moderate left neural foraminal narrowing. Reviewed, Interpreted and Dictated by Ubaldo Hinton III, MD Transcribed by Sandra Warner Authenticated and [facility]
== END ==
PROVIDERS: PCP Internal Medicine Adolescent Medicine; Visit Provider Internal Medicine Adolescent Medicine
DX: M54.50 Low back pain, unspecified (principal)
CPT/HCPCS: 72158; 76376; A9576

== ENCOUNTER 2022-10-15 14:11 | Emergency (ER) | payer OTHER, SELFPAY ==
[2022-10-15 15:15] VITALS: BP 132/81; PULSE 96; RESP 18; TEMP 36.6; O2SAT 99; BMI 27.6
--- NOTE | 2022-10-15 15:40 | EXP.UTC ---
Discharge Plan Disposition Patient Disposition: Home, Self-Care Condition: Good Prescriptions Prescriptions: New benzonatate 100 mg capsule 100 mg PO TID PRN (Reason: cough) Qty: 30 0RF Referrals Follow up/Referrals: Massimo Kemp MD [Primary Care Provider] - See instructions Activity Restrictions/Add. Instructions Additional Instructions/Restrictions: Too late to start Tamiflu. Most effective when started within 48 hours of symptoms onset Lots of rest Increase Fluids water, Gatorade, powerade, pedialyte,if infant/toddler/child Alternate Tylenol and / or ibuprofen as discussed for fever, aches, chills Follow up IMMEDIATELY with your family doctor for new or worsening Symptoms OR no noticeable improvement over the next 48-72 hours, 911 for difficulty or breathing You or your child area contagious until no fever, aches, chills for 24 hours with medication for symptoms Help Prevent the spread of influenza: ?Wash your hands often. Use soap and water. Wash your hands after you use the bathroom, change a child's diapers, or sneeze. Wash your hands before you prepare or eat food. Use gel hand cleanser that has 60% alcohol, when soap and water are not available. Do not touch your eyes, nose, or mouth unless you have washed your hands first. Cover your mouth when you sneeze or cough. Cough into a tissue or the bend of your arm. If you use a tissue, throw it away immediately and wash your hands. Clean shared items with a germ-killing pecan cleaner. Clean table surfaces, doorknobs, and light switches. Do not share towels, silverware, and dishes with people who are sick. Wash bed sheets, towels, silverware, and dishes with soap and water. Wear a mask over your mouth and nose if you are sick. The face mask may help protect others from becoming infected with the flu. Wear the mask when in common areas of your home or if you seek care with a healthcare provider. Stay away from others if you are sick. Stay at home until 24 hours after your fever and symptoms are gone. Clinical Impressions Clinical Impression: Influenza-like illness Stand Alone Forms Stand Alone Forms: Work/School Release Instructions Patient Instructions: DI for Fever (Symptom) -- Adult, DI for Influenza -- Adult Discharge ED Provider: Tona Madrid [facility] HPI General Stated complaint: Chills, flu exposure, bodyaches Mode of Arrival: Ambulatory Limitations: No Limitations Time Seen by Provider: 10/15/22 15:40 Description of Symptoms (Recalled from Triage Doc. by RN): CHILLS, BODYACHES AND HEADACHE HEENT Symptoms (Recalled from RN notes): Yes Resp Symptoms (Recalled from RN notes): No Skin Symptoms (Recalled from RN notes): No MS Symptoms (Recalled from RN notes): Yes Functional Status (Recalled from RN notes): WNL History of Present Illness Provider Complaint: Patient states that he has been taking care of his kids that has the flu States that on Thursday he started having symptoms States that he has been having bodyaches, chills, headache and fever states that today he was still feeling ill so he came in Related Data Previous Rx's Medication Instructions Recorded benzonatate 100 mg capsule 100 mg PO TID PRN cough #30 caps 10/15/22 Allergies Allergy/AdvReac Type Severity Reaction Status Date / Time No Known Allergies Allergy Verified 01/18/22 12:19 Worker's Comp Is this a Worker's Comp case?: No PFSH PFS Disclaimer: The information contained in this section may have been updated after the patient was seen, as this information can be updated by other users. Social History Smoking Status: Never smoker alcohol intake: current substance use type: denies use current occupational status: employed Travel in the last 8 weeks: None household members: significant other and family
[2022-10-15 15:48] VITALS: BP 132/81; PULSE 99; RESP 18; TEMP 36.6; O2SAT 99
== END 2022-10-15 15:50 | disposition home or self-care (01) ==
PROVIDERS: Emergency Provider Nurse Practitioner; PCP Internal Medicine Adolescent Medicine
DX: R50.9 Fever, unspecified (principal); R52 Pain, unspecified; Z20.828 Contact with and (suspected) exposure to other viral communicable diseases
CPT/HCPCS: 99212; G0463

== ENCOUNTER 2022-12-05 16:57 | Emergency (ER) | payer OTHER, SELFPAY ==
[2022-12-05 17:10] VITALS: BP 129/85; PULSE 88; RESP 20; TEMP 36.9; O2SAT 100; BMI 26.4
[2022-12-05 17:21] LABS: Apearance,Urine Clear (Clear); Bilirubin,Urine Negative (Negative); Blood, Urine Negative (Negative); Color,Urine Yellow (Yellow); Glucose,Urine (UA) Negative (Negative); Ketones,Urine Negative (Negative); PH,Urine 5.5 (5.0-8.5); Protein,Urine Negative (Negative); Specific Gravity, Urine 1.025 (1.005-1.030); UTC Leukocyte Esterase,Urine Trace (Negative); Urobilinogen,Urine 0.2 EU/dl (0.2)
[2022-12-05 17:22] LABS: UTC Nitrate,Urine Negative (Negative)
--- NOTE | 2022-12-05 17:30 | EXP.UTC ---
Discharge Plan Disposition Patient Disposition: Home, Self-Care Condition: Good Prescriptions Prescriptions: New Linzess 145 mcg capsule 145 mcg PO DAILY Qty: 30 2RF No Action omeprazole 40 mg capsule,delayed release(DR/EC) 40 mg PO DAILY Label Comments: TAKE 1 CAPSULE BY MOUTH EVERY DAY diclofenac sodium 75 mg tablet,delayed release (DR/EC) 75 mg PO BID Label Comments: TAKE 1 TABLET BY MOUTH TWICE A DAY Referrals Follow up/Referrals: Massimo Kemp MD [Primary Care Provider] - See instructions Activity Restrictions/Add. Instructions Additional Instructions/Restrictions: Mix 1 capful in 8 ounces Gatorade twice a day for the weekend Start Linzess daily Follow up with Saida on Thursday for remainder of results Clinical Impressions Clinical Impression: Constipation, Intermittent left upper quadrant abdominal pain Stand Alone Forms Stand Alone Forms: Work/School Release Discharge ED Provider: Jil Stevens [facility] General Stated complaint: Pain Left side Mode of Arrival: Ambulatory Source of Information: Patient Limitations: No Limitations Time Seen by Provider: 12/05/22 17:41 Description of Symptoms (Recalled from Triage Doc. by RN): sharp pain in lower right side. This has been going on for the last 6 months. In the last 2 months it has been getting worse. He states that he can eat during the day, but at night feels like hes going to vomit. HEENT Symptoms (Recalled from RN notes): No Resp Symptoms (Recalled from RN notes): No Skin Symptoms (Recalled from RN notes): No MS Symptoms (Recalled from RN notes): No Functional Status (Recalled from RN notes): n/a History of Present Illness Provider Complaint: Patient has pain in the left side. He has had issues with pain off and on for the past 6 months. It has gotten worse for the past 2 months and even worse this past week. Has appt with PCP on Thursday but just feels so miserable that he came on in. He has pain in the LUQ. States he always has a dull pain. He has intermittent spells of sharp left upper quadrant pain. He describes it as sharp and cramping. It is sometimes so severe it makes him cry. It lasts about 15 minutes. His belly always feels hard. When he tries to lean over to the left, it makes the pain worse. Pain is worse at night. He has no appetite. Sometimes he has to force himself to eat. 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 No easy bleeding or bruising. Feels like bowel movements are normal, no excess gas. Has been worked up in the past for kidney stones - no hematuria or urinary symptoms. Has had gallbladder workup which showed sludge. Had a UGI which showed GERD - takes Omeprazole. Has not had hematemesis or melana that he has noted. No known history of sickle cell disease in his family. Edit: called his mother while we were waiting for lab results and there is a family history of sickle cell disease. Related Data Home Medications Medication Instructions Recorded Confirmed diclofenac sodium 75 mg 75 mg PO BID nsaid 12/05/22 12/05/22 tablet,delayed release omeprazole 40 mg capsule,delayed 40 mg PO DAILY GERD 12/05/22 12/05/22 release Previous Rx's Medication Instructions Recorded linaclotide 145 mcg capsule 145 mcg PO DAILY #30 caps 12/05/22 (Linzess) Allergies Allergy/AdvReac Type Severity Reaction Status Date / Time No Known Allergies Allergy Verified 12/05/22 17:21 Worker's Comp Is this a Worker's Comp case?: No [facility] Disclaimer: The information contained in this section may have been updated after the patient was seen, as this information can be updated by other users. Social History Smoking Status: Never smoker alcohol intake: current substance use type: denies use current occupational status: employed Travel in the last 8 weeks: None household members:
--- NOTE | 2022-12-05 17:40 | XR_ITS ---
PROCEDURE INFORMATION: Exam: XR Complete Acute Abdomen Series Including Chest Exam date and time: 12/05/2022 5:36 PM Age: 37 years old Clinical indication: Abdominal pain; Generalized TECHNIQUE: Imaging protocol: Radiologic exam. Complete acute abdomen series, including 2 or more views of the abdomen and a single view chest. COMPARISON: CT ABDOMEN PELVIS WO CON 05/09/2022 6:56 AM FINDINGS: Lungs: Normal. No consolidation. Pleural spaces: Normal. No pleural effusions. No pneumothorax. Heart/Mediastinum: Normal. No cardiomegaly. Gastrointestinal tract: Mild-moderate degree of retained stool throughout the large bowel otherwise bowel gas pattern is unremarkable. Hollsopple shaped calcification left pelvic floor unchanged, chronic and outside the collecting system. Intraperitoneal space: Normal. No free air. Bones/joints: Normal. No acute fracture. Soft tissues: See Gastrointestinal tract finding. IMPRESSION: Probable constipation otherwise negative study.
[2022-12-05 18:21] LABS: Basophils # 0.1 K/mm3 (0-0.2); Basophils % 1.7 % (0.1-2.0); Eosinophils # 0.3 K/mm3 (0.0-0.4); Eosinophils % 5.6 % (0.1-12.0); Hematocrit 39.9 % (42.0-52.0); Lymphocytes # 1.7 K/mm3 (0.7-4.5); Lymphocytes % 29.8 % (10-50); Mean Corpuscular Hemoglobin 29.7 pg (27.0-31.2); Mean Corpuscular Volume 84.9 fl (80-94); Mean Platelet Volume 9.8 fl (7.4-10.4); Monocytes # 0.5 K/mm3 (0.1-1.0); Monocytes % 8.1 % (1.7-9.3); Monoscreen (Rapid) Negative (Negative); Neutrophils # 3.1 K/mm3 (1.8-7.8); Neutrophils % 54.9 % (37.0-80.0); Platelet Count 195 K/mm3 (142-424); Red Cell Distribution Width 14.4 % (11.5-17.5); White Blood Count 5.7 K/mm3 (4.8-10.8)
[2022-12-05 18:28] LABS: Alanine Aminotransferase 63 U/L (12-78); Albumin Level 4.9 g/dl (3.5-5.0); Albumin/Globulin Ratio 1.5 (1.1-1.8); Alkaline Phosphatase 46 U/L (38-126); Amylase 109 U/L (30-110); Aspartate Amino Transferase 44 U/L (17-59); Bilirubin,Total 0.8 mg/dl (0.2-1.3); Blood Urea Nitrogen 13 mg/dl (9-20); Calcium 8.5 mg/dl (8.4-10.2); Carbon Dioxide 29 mmol/L (22.0-30.0); Chloride 105 mmol/L (98-107); Creatinine Clearance Estimated 122 mL/min (50-200); Estimated Glomerular Filt Rate 84 ml/min (>60); GFR (African American) 101 ML/MIN (>60); Globulin 3.2 g/dL (1.3-3.2); Glucose 94 mg/dl (74-100); Lipase 145 U/L (23-300); Sodium 142 mmol/L (136-145); Total Protein,Serum 8.1 g/dl (6.3-8.2)
[2022-12-05 18:49] LABS: Erythrocyte Sedimentation Rate 9 mm/hr (0-15)
[2022-12-05 19:36] VITALS: BP 129/85; PULSE 88; RESP 20; TEMP 36.9; O2SAT 100
[2022-12-07 18:14] LABS: Peripheral Smear Review Scanned Result
[2022-12-08 16:36] LABS: EBV Ab VCA, IgM <36.0 U/mL (0.0-35.9); EBV Nuclear Antigen Ab, IgG >600.0 U/mL (0.0-17.9)
== END 2022-12-05 19:35 | disposition home or self-care (01) ==
PROVIDERS: Emergency Provider Physician Assistant; PCP Internal Medicine Adolescent Medicine
DX: K59.00 Constipation, unspecified (principal)
CPT/HCPCS: 74021; 80053; 81003; 82150; 83690; 85025; 85651; 86140; 86318; 86664; 86665; 87086; 99213; 99214; G0463

== ENCOUNTER 2022-12-12 19:58 | Emergency (ER) | payer OTHER, SELFPAY ==
[2022-12-12 19:59] VITALS: BP 142/81; PULSE 101; RESP 18; TEMP 37.7; O2SAT 98; BMI 28.3
--- NOTE | 2022-12-12 20:20 | CT_ITS ---
PROCEDURE INFORMATION: Exam: CT Abdomen And Pelvis With Contrast Exam date and time: 12/12/2022 9:09 PM Age: 37 years old Clinical indication: Abdominal pain; Additional info: Abd pain TECHNIQUE: Imaging protocol: Computed tomography of the abdomen and pelvis with contrast. Radiation optimization: All CT scans at this facility use at least one of these dose optimization techniques: automated exposure control; mA and/or kV adjustment per patient size (includes targeted exams where dose is matched to clinical indication); or iterative reconstruction. Contrast material: ISOVUE; Contrast volume: 35 ml; Contrast route: IV; Other protocol: This patient has received [address] and 0 known cardiac nuclear medicine studies in the 12 months prior to the current study. COMPARISON: CT ABDOMEN PELVIS WO CON 05/09/2022 6:56 AM FINDINGS: Tubes, catheters and devices: None noted. Lungs: Lung bases appear clear. Heart: No significant coronary calcifications. No cardiomegaly. No significant pericardial effusion. Liver: Normal. No mass. Gallbladder and bile ducts: Normal. No calcified stones. No ductal dilation. Pancreas: Normal. No ductal dilation. Spleen: Normal. No splenomegaly. Adrenal glands: Normal. No mass. Kidneys and ureters: Normal. No hydronephrosis. Stomach and bowel: Fluid-filled bowel. No obstruction. No mucosal thickening. Appendix: Retrocecal appendix is well visualized. No evidence of appendicitis. Intraperitoneal space: Unremarkable. No free air. No significant fluid collection. Retroperitoneal space: No significant retroperitoneal inflammatory changes are noted. Vasculature: Unremarkable. No abdominal aortic aneurysm. Lymph nodes: Unremarkable. No enlarged lymph nodes. Urinary bladder: Unremarkable as visualized. Reproductive: Unremarkable as visualized. Bones/joints: Unremarkable. No acute fracture. Soft tissues: Unremarkable. IMPRESSION: No acute findings.
--- NOTE | 2022-12-12 20:22 | HMH.EDABDPAI ---
Discharge Plan Disposition Patient Disposition: Home, Self-Care Chief Complaint: Abdominal Pain Prescriptions Prescriptions: No Action omeprazole 40 mg capsule,delayed release(DR/EC) 40 mg PO DAILY Label Comments: TAKE 1 CAPSULE BY MOUTH EVERY DAY diclofenac sodium 75 mg tablet,delayed release (DR/EC) 75 mg PO BID Label Comments: TAKE 1 TABLET BY MOUTH TWICE A DAY Linzess 145 mcg capsule 145 mcg PO DAILY Referrals Follow up/Referrals: Massimo Kemp MD [Primary Care Provider] - See instructions Clinical Impressions Clinical Impression: Abdominal pain Instructions Patient Instructions: DI for Acute Abdominal Pain Discharge ED Provider: Jasmine (ED),Adeel Pretty Abdominal Pain HPI General Chief Complaint: Abdominal Pain Stated Complaint: Abd pain, Time Seen by Provider: 12/12/22 20:23 Mode of Arrival: Ambulatory Source of Information: Patient, Spouse and Medical Record Limitations: No Limitations Description of Symptoms (Recalled from ER Triage Doc. by RN): pt c/o abdominal pain. pt reports LLQ and epigastric pain states a 10/10 achy pain. pt reports that he has had this pain for about ^6 monts and has been following with PCP bu the has stopped eating because of the pain. pt has a hx of acid reflux and no past abdominal surgeries History of Present Illness HPI narrative: over the last few days with abd pain has seen pcp and placed on MD complaint: abdominal pain Onset (ago): day(s) Consistency: constant Location: LLQ Severity: moderate Associated symptoms: denies other symptoms Related Data Home Medications Medication Instructions Recorded Confirmed diclofenac sodium 75 mg 75 mg PO BID nsaid 12/05/22 12/12/22 tablet,delayed release omeprazole 40 mg capsule,delayed 40 mg PO DAILY GERD 12/05/22 12/12/22 release linaclotide 145 mcg capsule 145 mcg PO DAILY IBS 12/12/22 12/12/22 (Linzess) Allergies Allergy/AdvReac Type Severity Reaction Status Date / Time No Known Allergies Allergy Verified 12/05/22 17:21 [facility] Disclaimer: The information contained in this section may have been updated after the patient was seen, as this information can be updated by other users. Social History Smoking Status: Never smoker alcohol intake: current substance use type: denies use current occupational status: employed Travel in the last 8 weeks: None household members: significant other and family housing: house current occupation: [employer] current occupational exposures/hazards: No caffeine: Yes ROS Obtained: Yes All systems reviewed & no additional complaints except as documented Physical Exam General General appearance: alert Head Head exam: normocephalic Eye Eye exam: Present PERRL and EOMI; Absent scleral icterus ENT ENT exam: Present mucous membranes moist Neck Neck exam: Present trachea midline Respiratory Respiratory exam: Absent respiratory distress Cardiovascular Cardiovascular exam: Present regular rate Abdominal Exam Abdominal exam: Present soft Extremities Exam Extremities exam: Present full ROM Neurological Exam Neurological exam: Present alert, oriented X3 and CN II-XII intact; Absent motor sensory deficit Psychiatric Psychiatric exam: Present normal affect Skin Skin exam: Absent rash Medical Decision Making Medical Records Medical records reviewed: Yes I reviewed the patient's medical records. Morgan Inquiry Pt receiving controlled substance: No Vital Signs: 12/12/22 19:59 Temperature 99.8 F H Temperature Source Oral Pulse Rate [Right Radial] 101 H Respiratory Rate 18 Blood Pressure [right] 142/81 H Blood Pressure Mean [right] 101 02 Sat by Pulse Oximetry 98 Oxygen Delivery Method Room Air Lab Data Lab results reviewed: Yes I reviewed the patient's lab results. Lab Results 12/12/22 20:12: WBC 6.1, RBC 4.86, Hgb 14.2, Hct 42.0, MCV 86.4, MCH 29.2, MCHC 33.8, RDW 14.4, Plt Count 161, MPV 9.9,
[2022-12-12 20:37] LABS: Basophils # 0.1 K/mm3 (0-0.2); Basophils % 1.1 % (0.1-2.0); Eosinophils # 0.2 K/mm3 (0.0-0.4); Eosinophils % 3.3 % (0.1-12.0); Hemoglobin 14.2 g/dL (14.1-18.0); Mean Corpuscular HGB Conc 33.8 g/dL (31.8-35.4); Mean Corpuscular Hemoglobin 29.2 pg (27.0-31.2); Mean Corpuscular Volume 86.4 fl (80-94); Mean Platelet Volume 9.9 fl (7.4-10.4); Monocytes # 0.4 K/mm3 (0.1-1.0); Monocytes % 7.3 % (1.7-9.3); Neutrophils # 4.3 K/mm3 (1.8-7.8); Neutrophils % 71.2 % (37.0-80.0); Platelet Count 161 K/mm3 (142-424); Red Blood Count 4.86 M/mm3 (4.60-6.20); Red Cell Distribution Width 14.4 % (11.5-17.5); White Blood Count 6.1 K/mm3 (4.8-10.8)
[2022-12-12 20:39] LABS: Chloride 107 mmol/L (98-107)
[2022-12-12 20:40] LABS: Potassium 4.1 mmoL/L (3.5-5.1); Sodium 144 mmol/L (136-145)
[2022-12-12 20:42] LABS: Alanine Aminotransferase 167 U/L (12-78); Alkaline Phosphatase 53 U/L (38-126); Amylase 112 U/L (30-110); Anion Gap 12.1 mEq/L (5-15); Aspartate Amino Transferase 125 U/L (17-59); Bilirubin,Total 1.2 mg/dl (0.2-1.3); Blood Urea Nitrogen 13 mg/dl (9-20); Carbon Dioxide 29 mmol/L (22.0-30.0); Creatinine Clearance Estimated 130 mL/min (50-200); Estimated Glomerular Filt Rate 84 ml/min (>60); GFR (African American) 101 ML/MIN (>60); Glucose 110 mg/dl (74-100); Lipase 175 U/L (23-300)
[2022-12-12 20:43] LABS: Albumin Level 5.1 g/dl (3.5-5.0); Albumin/Globulin Ratio 1.4 (1.1-1.8); Globulin 3.6 g/dL (1.3-3.2); Total Protein,Serum 8.7 g/dl (6.3-8.2)
[2022-12-12 21:03] LABS: Erythrocyte Sedimentation Rate 11 mm/hr (0-15)
[2022-12-12 21:23] LABS: Microscopic, Urine URINE MICROSCOPIC (MICROSCOPIC)
[2022-12-12 21:33] LABS: Appearance,Urine CLEAR (Clear); Bilirubin,Urine Negative (Negative); Blood, Urine Negative (Negative); Color,Urine YELLOW (Yellow); Glucose,Urine (UA) Negative (Negative); Ketones,Urine Negative (Negative); Leukocyte Esterase,Urine Negative (Negative); Nitrate,Urine Negative (Negative); Protein,Urine Negative (Negative); Specific Gravity, Urine 1.025 (1.005-1.030); Urobilinogen,Urine 0.2 EU/dl (0.2)
[2022-12-12 21:45] LABS: Bacteria,Urine Trace /lpf
[2022-12-12 22:17] LABS: C-Reactive Protein 11.4 mg/L (0-4)
[2022-12-12 22:51] VITALS: BP 135/74; PULSE 81; RESP 18; TEMP 36.7; O2SAT 97
== END 2022-12-12 22:51 | disposition home or self-care (01) ==
PROVIDERS: Emergency Provider Emergency Medicine; PCP Internal Medicine Adolescent Medicine
DX: R10.32 Left lower quadrant pain (principal); R10.13 Epigastric pain
CPT/HCPCS: 74177; 80053; 81001; 82150; 83690; 85025; 85651; 86140; 96361; 96374; 96375; 99285; J0131; Q9967

== ENCOUNTER 2022-12-19 14:02 | Emergency (ER) | payer OTHER, SELFPAY ==
[2022-12-19 14:15] VITALS: BP 137/91; PULSE 72; RESP 20; TEMP 37.1; O2SAT 100; BMI 28.5
--- NOTE | 2022-12-19 14:24 | EXP.UTC ---
Discharge Plan Disposition Patient Disposition: Home, Self-Care Condition: Good Prescriptions Prescriptions: New ondansetron 8 mg Tablet,Disintegrating 8 mg PO TID PRN (Reason: Nausea) Qty: 30 0RF promethazine 25 mg tablet 25 mg PO TID PRN (Reason: nausea and vomiting) Qty: 30 0RF sucralfate [Carafate] 1 gram tablet 1 g PO Q6H Qty: 120 0RF No Action peg 3350-electrolytes [GaviLyte-G] 236-22.74-6.74 -5.86 gram recon soln 240 ml PO Q10M Rx Instructions: follow mailed instructions omeprazole 40 mg capsule,delayed release(DR/EC) 40 mg PO DAILY Label Comments: TAKE 1 CAPSULE BY MOUTH EVERY DAY diclofenac sodium 75 mg tablet,delayed release (DR/EC) 75 mg PO BID Label Comments: TAKE 1 TABLET BY MOUTH TWICE A DAY Linzess 145 mcg capsule 145 mcg PO DAILY Referrals Follow up/Referrals: Massimo Kemp MD [Primary Care Provider] - See instructions Activity Restrictions/Add. Instructions Additional Instructions/Restrictions: Keep appt for EGD/colonoscopy next week Clinical Impressions Clinical Impression: Abdominal pain, left upper quadrant Instructions Patient Instructions: DI for Vomiting -- Adult Discharge ED Provider: Jil Stevens [facility] HPI General Stated complaint: Rash LT rib w/pain Mode of Arrival: Ambulatory Source of Information: Patient Limitations: No Limitations Time Seen by Provider: 12/19/22 14:26 Description of Symptoms (Recalled from Triage Doc. by RN): rash and left side pain, and vomiting HEENT Symptoms (Recalled from RN notes): No Resp Symptoms (Recalled from RN notes): No Skin Symptoms (Recalled from RN notes): No MS Symptoms (Recalled from RN notes): Yes Functional Status (Recalled from RN notes): n/a History of Present Illness Provider Complaint: Patient presents with LUQ pain and vomiting. Has had ongoing issues with abdominal pain, vomiting since last summer. Has seen PCP, [facility], ER. Last seen at [facility] 2 weeks ago. AAS showed constipation. Followed up with PCP, started Linzess. Has EGD and colonoscopy next week. Seen in ER one week ago - normal CT abd/pelvis. No hepatosplenomegaly. Liver enzymes were elevated at that time. No fever. Normal bowel movements. Has taken Omeprazole for about a year. He vomits each time he eats and is now avoiding eating all together. Onset (ago): year(s) (1) Quality: burning Consistency: constant Exacerbating factors: eating Related Data Home Medications Medication Instructions Recorded Confirmed diclofenac sodium 75 mg 75 mg PO BID back pain 12/05/22 12/19/22 tablet,delayed release omeprazole 40 mg capsule,delayed 40 mg PO DAILY GERD 12/05/22 12/19/22 release linaclotide 145 mcg capsule 145 mcg PO DAILY IBS 12/12/22 12/19/22 (Linzess) peg 3350-electrolytes 236 240 ml PO Q10M . 12/19/22 12/19/22 gram-22.74 gram-6.74 gram-5.86 gram solution (GaviLyte-G) Previous Rx's Medication Instructions Recorded ondansetron 8 mg disintegrating 8 mg PO TID PRN Nausea #30 tabs 12/19/22 tablet promethazine 25 mg tablet 25 mg PO TID PRN nausea and 12/19/22 vomiting #30 tabs sucralfate 1 gram tablet (Carafate) 1 g PO Q6H #120 tabs 12/19/22 Allergies Allergy/AdvReac Type Severity Reaction Status Date / Time No Known Allergies Allergy Verified 12/19/22 14:24 Worker's Comp Is this a Worker's Comp case?: No [facility] Disclaimer: The information contained in this section may have been updated after the patient was seen, as this information can be updated by other users. 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 (Updated 12/19/22 @ 15:52 by DEB Valentine) History of gastroesophageal reflux (GERD) Surgical History History of tonsillectomy Family History Family history of cancer Family history of diabetes mellitus type II Social History (Reviewed 12/19/22 @ 14:23 by Yousuf
[2022-12-19 15:12] LABS: MANUAL DIFFERENTIAL MANUAL DIFFERENTIAL (MANUAL DIFF)
[2022-12-19 15:15] LABS: Basophils # 0.1 K/mm3 (0-0.2); Basophils % 0.9 % (0.1-2.0); Eosinophils # 0.3 K/mm3 (0.0-0.4); Eosinophils % 4.8 % (0.1-12.0); Hematocrit 36.7 % (42.0-52.0); Hemoglobin 12.6 g/dL (14.1-18.0); Lymphocytes # 1.6 K/mm3 (0.7-4.5); Lymphocytes % 27.7 % (10-50); Mean Corpuscular HGB Conc 34.5 g/dL (31.8-35.4); Mean Corpuscular Hemoglobin 29.4 pg (27.0-31.2); Mean Corpuscular Volume 85.3 fl (80-94); Mean Platelet Volume 9.4 fl (7.4-10.4); Monocytes # 0.4 K/mm3 (0.1-1.0); Monocytes % 6.4 % (1.7-9.3); Neutrophils # 3.6 K/mm3 (1.8-7.8); Neutrophils % 60.2 % (37.0-80.0); Platelet Count 186 K/mm3 (142-424); Red Cell Distribution Width 14.5 % (11.5-17.5); White Blood Count 5.9 K/mm3 (4.8-10.8)
[2022-12-19 15:21] LABS: Alanine Aminotransferase 93 U/L (12-78); Albumin Level 4.4 g/dl (3.5-5.0); Albumin/Globulin Ratio 1.5 (1.1-1.8); Alkaline Phosphatase 46 U/L (38-126); Amylase 103 U/L (30-110); Anion Gap 3.4 mEq/L (5-15); Aspartate Amino Transferase 49 U/L (17-59); Bilirubin,Total 0.7 mg/dl (0.2-1.3); Blood Urea Nitrogen 10 mg/dl (9-20); Calcium 8.3 mg/dl (8.4-10.2); Carbon Dioxide 31 mmol/L (22.0-30.0); Chloride 107 mmol/L (98-107); Creatinine Clearance Estimated 146 mL/min (50-200); Estimated Glomerular Filt Rate 94 ml/min (>60); GFR (African American) 114 ML/MIN (>60); Globulin 2.9 g/dL (1.3-3.2); Glucose 94 mg/dl (74-100); Lactate Dehydrogenase 238 U/L (313-618); Lipase 152 U/L (23-300); Potassium 3.4 mmoL/L (3.5-5.1); Sodium 138 mmol/L (136-145); Total Protein,Serum 7.3 g/dl (6.3-8.2)
[2022-12-19 15:39] LABS: Lactic Acid 0.7 mmol/L (0.7-2.1)
[2022-12-19 16:10] VITALS: BP 137/91; PULSE 72; RESP 20; TEMP 37.1; O2SAT 100
[2022-12-19 16:53] LABS: Anisocytosis 1+; Eosinophils % 1 % (0-3); Lymphocytes % 20 % (10-50); Monocytes % 12 % (2-9); Neutrophils % 67 % (42-76); Platelet Estimate Normal; Total Cells Counted 100
[2022-12-21 11:08] LABS: HIV Screen 4th Generation wRfx Non Reactive (Non Reactive)
[2022-12-22 15:13] LABS: H. pylori Breath Test Negative (Negative)
[2023-01-01 22:34] LABS: Hep A Ab, IgM NEGATIVE; Hepatitis B Core Antibody IgM NEGATIVE; Hepatitis B Surface Antigen NEGATIVE; Hepatitis C Antibody <0.1
== END 2022-12-19 16:10 | disposition home or self-care (01) ==
PROVIDERS: Emergency Provider Physician Assistant; PCP Internal Medicine Adolescent Medicine
DX: R10.12 Left upper quadrant pain (principal)
CPT/HCPCS: 36415; 80053; 80074; 82150; 83013; 83605; 83615; 83690; 85007; 85014; 85018; 85048; 85049; 86703; 99212; 99214; G0432; G0463

== ENCOUNTER 2022-12-25 10:17 | Day surgery (SDC) | payer OTHER, SELFPAY ==
[2022-12-18 09:51] VITALS: BMI 28.0
[2022-12-25 10:41] VITALS: BP 177/76; PULSE 76; RESP 18; TEMP 36.4; O2SAT 99
--- NOTE | 2022-12-25 10:53 | EXP.ANES.CKL ---
[facility] Disclaimer: The information contained in this section may have been updated after the patient was seen, as this information can be updated by other users. 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 History of gastroesophageal reflux (GERD) Surgical History History of tonsillectomy Family History Other Family history of cancer Family history of diabetes mellitus type II Social History Smoking Status: Never smoker alcohol intake: current substance use type: denies use current occupational status: employed Travel in the last 8 weeks: None household members: significant other and family housing: house lives independently: Yes marital status: single education level: high school service: No prison: No current occupation: [employer] current occupational exposures/hazards: No caffeine: Yes special gasper needs: No agree to transfusion: No do you feel safe at home: Yes victim of physical abuse: No victim of emotional abuse: No victim of sexual abuse: No would you like helpful sources: No [facility] Anesthesia Checklist Patient Identification Patient Identification: Arm Band Structural Data Admitted From: Home Planned Operative Procedure/s: EGD/Colonoscopy Consent for Planned Operative Procedure(s) Verified: Yes NPO Status Verified Time NPO: 00:00 Additional verifications Anesthesia Reactions: No Hx Blood Transfusions: No Blood Transfusion Reaction: No Airway Assessment C-Spine Mobility Assessed: Yes TMJ Mobility Assessed: Yes Dentition: Good Dentition Neurological Assessment Level of Consciousness: Awake Hx Seizures: No Numbness or tingling in extremities: No Anesthesia Plan Anesthesia Risk discussed: Yes Anesthesia Plan: Verified ASA Class: II Anesthesia Type: MAC
[2022-12-25 11:33] VITALS: O2SAT 99
--- NOTE | 2022-12-25 11:52 | HMH.SCOPE ---
Procedure: Date: 12/25/22 Patient Date of :: 1985 Procedure Performed:: EGD & Biopsies Indications:: Worsening GERD, Abdominal discomfort Performing Provider:: Estela Ferrari MD Referring Provider:: Massimo Kemp Sedation:: Propofol Procedure:: The gastroscope was gently passed through the incisoral orifice into the oral cavity and under direct visualization the esophagus was intubated. The endoscope was passed down the esophagus, through the stomach, and into the duodenum. Color, texture, mucosa, and anatomy of the esophagus, stomach, and duodenum were carefully examined with the scope. Findings:: Oropharynx: normal Esophagus: normal EG Junction: intact at 40 cm Cardia: normal Fundus: normal Body: normal, mild gastritis greater curvature, biopsies obtained Antrum: normal Duodenal bulb: normal Duodenum (second and third portion): normal Impression: Non specific mild gastritis Specimens:: Gastric Recommendations:: Avoid NSAID's or ASA products when possible Symptomatic PPI therapy as clinically indicated Complications:: None Estimated blood obtained (mL): 0
[2022-12-25 11:55] VITALS: BP 121/67; PULSE 68; RESP 16; TEMP 36.2; O2SAT 97
--- NOTE | 2022-12-25 11:55 | HMH.SCOPE ---
Procedure: Date: 12/25/22 Patient Date of :: 1985 Procedure Performed:: Colonoscopy Indications:: Screening exam, elevated CRP Performing Provider:: Estela Ferrari MD Referring Provider:: bandar Kemp Sedation:: Propofol Procedure:: After placing the patient in the left lateral decubitus position, the colonoscopy was gently inserted into the rectum and under direct visualization advanced to the cecum which was identified by transillumination in the right lower quadrant, identification of the ileocecal valve, appendiceal orifice, and cecal strap. Color, texture, mucosa, and anatomy of the colon were carefully examined with the scope. Findings:: Anal canal: normal Rectum: normal Sigmoid colon: normal without polyps or inflammatory changes Descending colon: normal without polyps or inflammatory changes Splenic flexure: normal Transverse colon: normal without polyps or inflammatory changes Hepatic flexure: normal Ascending colon: normal without polyps or inflammatory changes Cecum: normal Terminal ileum: not visualized Impression: Normal colonoscopy Recommendations:: Routine follow screening examination in about TEN years or so, sooner if clinically indicated. Complications:: None Estimated blood obtained (mL): 0
[2022-12-25 12:05] VITALS: BP 115/74; PULSE 68; RESP 16; O2SAT 100
[2022-12-25 12:15] VITALS: BP 128/72; PULSE 77; RESP 16; O2SAT 100
[2022-12-25 12:25] VITALS: BP 132/88; PULSE 64; RESP 16; O2SAT 100
== END 2022-12-25 12:25 | disposition home or self-care (01) ==
PROVIDERS: PCP Internal Medicine Adolescent Medicine; Visit Provider Internal Medicine Gastroenterology
PROC: 0DJ08ZZ Inspection of Upper Intestinal Tract, Via Natural or Artificial Opening Endoscopic (ICD-10-PCS; CPT 43235; principal; 2022-12-25 11:30)
DX: K21.9 Gastro-esophageal reflux disease without esophagitis (principal); K29.70 Gastritis, unspecified, without bleeding; Z12.11 Encounter for screening for malignant neoplasm of colon; Z79.899 Other long term (current) drug therapy
CPT/HCPCS: 45378; 43239

== ENCOUNTER 2023-09-26 21:03 | Emergency (ER) | payer OTHER, SELFPAY ==
[2023-09-26 21:04] VITALS: BP 136/94; PULSE 92; RESP 19; TEMP 36.9; O2SAT 100; BMI 30.1
[2023-09-26 21:11] VITALS: BP 136/94
--- NOTE | 2023-09-26 21:22 | XR_ITS ---
PROCEDURE INFORMATION: Exam: XR Chest Exam date and time: 09/26/2023 9:51 PM Age: 38 years old Clinical indication: Dyspnea TECHNIQUE: Imaging protocol: Radiologic exam of the chest. Views: 1 view. COMPARISON: CR XR CHEST PORTABLE 01/02/2021 12:31 PM FINDINGS: Lungs: No evidence of acute pulmonary disease or infiltrates; lung denney appear clear. Pleural spaces: No evidence of pleural effusion, pneumothorax, or pleural thickening in the visualized pleural spaces. Heart/Mediastinum: No evidence of mediastinal widening or cardiac silhouette enlargement; the mediastinum and heart appear within normal limits for contour and size. Bones/joints: No evidence of acute osseous abnormalities within the visualized portions of the thoracic spine and ribs. Osseous structures appear appropriate for patient age. IMPRESSION: Negative study. No acute cardiopulmonary abnormalities identified. Osseous structures within the visualized portions of the thoracic spine and ribs show no acute abnormalities and appear appropriate for patient age.
--- NOTE | 2023-09-26 21:22 | CT_ITS ---
PROCEDURE INFORMATION: Exam: CT Abdomen And Pelvis With Contrast Exam date and time: 09/26/2023 10:01 PM Age: 38 years old Clinical indication: Abdominal pain; Additional info: 7 days abd distention, mid epigastric/periumb pn. TECHNIQUE: Imaging protocol: Computed tomography of the abdomen and pelvis with contrast. Radiation optimization: All CT scans at this facility use at least one of these dose optimization techniques: automated exposure control; mA and/or kV adjustment per patient size (includes targeted exams where dose is matched to clinical indication); or iterative reconstruction. Contrast material: ISOVUE; Contrast volume: 75 ml; Contrast route: IV; REPORTING DATA: Count of CT and Cardiac NM exams in prior 12 months: This patient has received [address] and 0 known cardiac nuclear medicine studies in the 12 months prior to the current study. COMPARISON: CT ABDOMEN PELVIS W CON 12/12/2022 9:09 PM FINDINGS: Liver: Normal. No mass. Gallbladder and bile ducts: Normal. No calcified stones. No ductal dilation. Pancreas: The pancreas is of normal size and morphology, without evidence of masses, cysts, or calcifications. The pancreatic duct is not dilated. Spleen: The spleen is normal in size and attenuation. No splenic masses or cysts are observed. Adrenal glands: The adrenal glands appear normal. Kidneys and ureters: Both kidneys are of normal size and show uniform attenuation. There are no renal masses, cysts, or calculi. The adrenal glands appear normal. Stomach and bowel: The stomach, small bowel, and colon are well-distended and show no evidence of wall thickening, masses, or obstruction. Appendix: No evidence of appendicitis. Intraperitoneal space: Unremarkable. No free air. No significant fluid collection. Vasculature: Multiple pelvic phleboliths are present. Lymph nodes: No enlarged or pathological lymph nodes are identified in the abdomen or pelvis. Urinary bladder: There is moderate distention of the urinary bladder. Reproductive: No significant pathology. Bones/joints: The visualized osseous structures of the abdomen and pelvis appear intact and normal for patient age with no evidence of fractures or lytic or sclerotic lesions. Soft tissues: Unremarkable. IMPRESSION: No definite signs of inflammatory conditions, masses, adenopathy, or collections were observed in the abdomen or pelvis at the time of imaging. Additionally, the urinary tract and gastrointestinal system did not show any evidence of obstruction on the images acquired.
--- NOTE | 2023-09-26 21:25 | HMH.EDGENADL ---
Discharge Plan Disposition Patient Disposition: Home, Self-Care Prescriptions Prescriptions: No Action sucralfate [Carafate] 1 gram tablet 1 g PO Q6H peg 3350-electrolytes [GaviLyte-G] 236-22.74-6.74 -5.86 gram recon soln 240 ml PO Q10M Rx Instructions: follow mailed instructions ondansetron 8 mg Tablet,Disintegrating 8 mg PO TID PRN (Reason: Nausea) Qty: 30 0RF promethazine 25 mg tablet 25 mg PO TID PRN (Reason: nausea and vomiting) Qty: 30 0RF omeprazole 40 mg capsule,delayed release(DR/EC) 40 mg PO DAILY Patient Comments: TAKE 1 CAPSULE BY MOUTH EVERY DAY diclofenac sodium 75 mg tablet,delayed release (DR/EC) 75 mg PO BID Patient Comments: TAKE 1 TABLET BY MOUTH TWICE A DAY Linzess 145 mcg capsule 145 mcg PO DAILY Referrals Follow up/Referrals: Massimo Kemp MD [Primary Care Provider] - See instructions Activity Restrictions/Add. Instructions Additional Instructions/Restrictions: Your emergency work-up for your abdominal pain was unremarkable today. After further discussion with you in reviewing your records and after you are symptomatic improvement with GI cocktail and Pepcid your symptoms are most likely secondary to chronic GERD. I would recommend that you start taking Pepcid [id number] twice a day and you may also take [id number]-[id number] Maalox or Tums as needed for your symptoms as well. Try lifestyle modification as we discussed. I would also recommend you follow-up with Dr. Coates in [place] so that you have a teacher advisor is following you for this. Clinical Impressions Clinical Impression: Epigastric abdominal pain, Periumbilical abdominal pain, Chronic GERD, Thrombocytopenia Instructions Patient Instructions: DI for Acute Abdominal Pain Discharge ED Provider: Efren Lorenzo General Adult HPI General Chief complaint: Abdominal Pain Stated complaint: abd pain Time Seen by Provider: 09/26/23 21:12 Mode of Arrival: Ambulatory Source of Information: Patient Limitations: No Limitations Description of Symptoms (Recalled from ER Triage Doc. by RN): Patient reports that he has been having ongoing problems with sharp, intermittent, central abdominal pain. He had recently been diagnosed wtih chostocondritis. Patient states that the pain has been constant since approximately 1530, worse with movement, last BM at 1pm with no relief of symptoms. History of Present Illness HPI narrative: Patient is a previously healthy 38-year-old male presenting today with midepigastric and central abdominal periumbilical abdominal discomfort. States this has been going on for 7 days. He went to urgent treatment clinic on Thursday was told he had costochondritis. However he states he has no significant pain in his chest wall. Denies any exertional symptoms any diaphoresis any radiation in his chest. States that he thought that he was constipated but he took some MiraLAX without any improvement. States that he does have some worsening pain after eating no melena hematochezia or hematemesis. No laterality to the pain itself specifically no right upper quadrant pain. He has been diagnosed with GERD in the past even had an EGD that was unremarkable. Section had multiple visits over the years for similar symptoms and nothing has been found in the past. He has never had a CT scan to his knowledge. Related Data Home Medications Medication Instructions Recorded Confirmed diclofenac sodium 75 mg 75 mg PO BID back pain 12/05/22 12/19/22 tablet,delayed release omeprazole 40 mg capsule,delayed 40 mg PO DAILY GERD 12/05/22 12/19/22 release linaclotide 145 mcg capsule 145 mcg PO DAILY IBS 12/12/22 12/19/22 (Linzess) peg 3350-electrolytes 236 240 ml PO Q10M . 12/19/22 12/19/22 gram-22.74 gram-6.74 gram-5.86 gram solution (GaviLyte-G) sucralfate 1 gram tablet (Carafate) 1 g PO Q6H stomach 12/25/22 Previous Rx's Medication Instructions Recorded on
[2023-09-26 21:44] LABS: Basophils % 0.6 % (0.1-2.0); Eosinophils # 0.5 K/mm3 (0.0-0.4); Eosinophils % 7.3 % (0.1-12.0); Hematocrit 40.7 % (42.0-52.0); Hemoglobin 14.1 g/dL (14.1-18.0); Lymphocytes # 0.8 K/mm3 (0.7-4.5); Lymphocytes % 12.7 % (10-50); Mean Corpuscular HGB Conc 34.6 g/dL (31.8-35.4); Mean Corpuscular Volume 86.9 fl (80-94); Mean Platelet Volume 9.6 fl (7.4-10.4); Monocytes # 0.4 K/mm3 (0.1-1.0); Monocytes % 6.9 % (1.7-9.3); Neutrophils # 4.5 K/mm3 (1.8-7.8); Neutrophils % 72.5 % (37.0-80.0); Platelet Count 140 K/mm3 (142-424); Red Blood Count 4.68 M/mm3 (4.60-6.20); Red Cell Distribution Width 13.8 % (11.5-17.5); White Blood Count 6.3 K/mm3 (4.8-10.8)
[2023-09-26 21:47] LABS: Chloride 102 mmol/L (98-107)
[2023-09-26 21:48] LABS: Potassium 3.8 mmoL/L (3.5-5.1); Sodium 140 mmol/L (136-145)
[2023-09-26 21:50] LABS: Blood Urea Nitrogen 14 mg/dl (9-20); Creatinine Clearance Estimated 121 mL/min (50-200); Estimated Glomerular Filt Rate 75 ml/min (>60); GFR (African American) 90 ML/MIN (>60)
--- NOTE | 2023-09-26 21:50 | ECG_ITS ---
APPROVED REPORT Exam: Resting ECG HR:76 bpm ECG Measurements Heart Rate 76 AXES UT 167 P 73 QRSd 102 QRS 50 QT 365 T 64 QTc 396 Conclusion SINUS RHYTHM NORMAL ECG UNCONFIRMED REPORT Electronically signed by : Massimo Kemp MD 09/28/2023 17:30:41
[2023-09-26 21:51] LABS: Alanine Aminotransferase 42 U/L (12-78); Albumin/Globulin Ratio 1.5 (1.1-1.8); Alkaline Phosphatase 42 U/L (38-126); Anion Gap 10.8 mEq/L (5-15); Aspartate Amino Transferase 44 U/L (17-59); Bilirubin,Total 1.2 mg/dl (0.2-1.3); Calcium 8.9 mg/dl (8.4-10.2); Carbon Dioxide 31 mmol/L (22.0-30.0); Globulin 3.3 g/dL (1.3-3.2); Glucose 95 mg/dl (74-100); Lipase 105 U/L (23-300); Total Protein,Serum 8.3 g/dl (6.3-8.2)
--- NOTE | 2023-09-26 21:55 | PC.NURSE ---
patient gone to CT at this time.
[2023-09-26 22:05] LABS: Troponin I < 0.01 ng/ml (0.00-0.034)
--- NOTE | 2023-09-26 22:06 | PC.NURSE ---
patient back in room at this time.
--- NOTE | 2023-09-26 22:06 | PC.NURSE ---
in room talking with patient at this time.
[2023-09-26 22:42] VITALS: BP 136/74; PULSE 89; RESP 17; TEMP 36.7; O2SAT 99
== END 2023-09-26 22:44 | disposition home or self-care (01) ==
PROVIDERS: Emergency Provider Student in an Organized Health Care Education/Training Program; PCP Internal Medicine Adolescent Medicine
DX: R10.13 Epigastric pain (principal); R10.33 Periumbilical pain; D69.6 Thrombocytopenia, unspecified; K21.9 Gastro-esophageal reflux disease without esophagitis
CPT/HCPCS: 71045; 74177; 80053; 83690; 84484; 85025; 93005; 96361; 96374; 99285; Q9967

== ENCOUNTER 2023-09-27 21:09 | Emergency (ER) | payer OTHER, SELFPAY ==
[2023-09-27 21:18] VITALS: BP 176/94; PULSE 108; RESP 18; TEMP 38.2; O2SAT 96; BMI 63.2
[2023-09-27 21:24] VITALS: BP 176/94; PULSE 108; RESP 18; TEMP 38.2; O2SAT 96
--- NOTE | 2023-09-27 21:26 | PC.NURSE ---
Flu and covid swabs obtained
[2023-09-27 21:30] LABS: Influenza A, PCR Not Detected (NotDetected); Influenza B, PCR Not Detected (NotDetected)
[2023-09-27 21:40] VITALS: BP 141/89; PULSE 98; O2SAT 96
--- NOTE | 2023-09-27 21:49 | XR_ITS ---
PROCEDURE INFORMATION: Exam: XR Chest Exam date and time: 09/27/2023 9:55 PM Age: 38 years old Clinical indication: Cough TECHNIQUE: Imaging protocol: Radiologic exam of the chest. Views: 1 view. COMPARISON: CR XR CHEST PORTABLE 09/26/2023 9:51 PM FINDINGS: Lungs: Normal. Pleural spaces: Normal No pleural effusion. No pneumothorax. Heart/Mediastinum: Normal. No cardiomegaly. Bones/joints: Unremarkable. IMPRESSION: No acute findings.
--- NOTE | 2023-09-27 21:49 | HMH.EDGENADL ---
Discharge Plan Disposition Patient Disposition: Home, Self-Care Chief Complaint: Upper Respiratory Infection Prescriptions Prescriptions: No Action sucralfate [Carafate] 1 gram tablet 1 g PO Q6H peg 3350-electrolytes [GaviLyte-G] 236-22.74-6.74 -5.86 gram recon soln 240 ml PO Q10M Rx Instructions: follow mailed instructions ondansetron 8 mg Tablet,Disintegrating 8 mg PO TID PRN (Reason: Nausea) Qty: 30 0RF promethazine 25 mg tablet 25 mg PO TID PRN (Reason: nausea and vomiting) Qty: 30 0RF omeprazole 40 mg capsule,delayed release(DR/EC) 40 mg PO DAILY Patient Comments: TAKE 1 CAPSULE BY MOUTH EVERY DAY diclofenac sodium 75 mg tablet,delayed release (DR/EC) 75 mg PO BID Patient Comments: TAKE 1 TABLET BY MOUTH TWICE A DAY Linzess 145 mcg capsule 145 mcg PO DAILY Referrals Follow up/Referrals: Massimo Kemp MD [Primary Care Provider] - See instructions Activity Restrictions/Add. Instructions Additional Instructions/Restrictions: At this time it was felt you are safe to be discharged home. If new or worsening symptoms please do not hesitate to return the emergency department. If symptoms persist please follow-up with your family doctor as you are able. Please take Tylenol and ibuprofen every 6 hours for the next few days. Clinical Impressions Clinical Impression: COVID-19 Discharge ED Provider: Jos Hensley General Adult HPI General Chief complaint: Upper Respiratory Infection Stated complaint: fever Time Seen by Provider: 09/27/23 21:11 Mode of Arrival: Ambulatory Source of Information: Patient Limitations: No Limitations Description of Symptoms (Recalled from ER Triage Doc. by RN): Patient states he started having a fever today. Highest fever being 103.7 oral. Patient states he has taken ibuprofen, last dose at 1900. Non-productive cough, congestion, watery eyes, fever and chills. History of Present Illness HPI narrative: Patient is a 38-year-old male with no pertinent past medical history who presents emergency department for evaluation of fever, cough. Onset was acute, occurring earlier this evening. Symptoms are refractory to ibuprofen. Given this he presents here for continued evaluation. Related Data Home Medications Medication Instructions Recorded Confirmed diclofenac sodium 75 mg 75 mg PO BID back pain 01/27/23 02/10/23 tablet,delayed release omeprazole 40 mg capsule,delayed 40 mg PO DAILY GERD 12/05/22 12/19/22 release linaclotide 145 mcg capsule 145 mcg PO DAILY IBS 12/12/22 12/19/22 (Linzess) peg 3350-electrolytes 236 240 ml PO Q10M . 12/19/22 12/19/22 gram-22.74 gram-6.74 gram-5.86 gram solution (GaviLyte-G) sucralfate 1 gram tablet (Carafate) 1 g PO Q6H stomach 12/25/22 Previous Rx's Medication Instructions Recorded ondansetron 8 mg disintegrating 8 mg PO TID PRN Nausea #30 tabs 12/19/22 tablet promethazine 25 mg tablet 25 mg PO TID PRN nausea and 12/19/22 vomiting #30 tabs Allergies Allergy/AdvReac Type Severity Reaction Status Date / Time No Known Allergies Allergy Verified 12/19/22 14:24 [facility] Disclaimer: The information contained in this section may have been updated after the patient was seen, as this information can be updated by other users. 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 History of gastroesophageal reflux (GERD) Surgical History History of tonsillectomy Family History Other Family history of cancer Family history of diabetes mellitus type II Social History Smoking Status: Never smoker alcohol intake: current substance use type: denies use current occupational status: employed Travel in the last 8 weeks: None household members: significant other
[2023-09-27 21:50] VITALS: BP 150/90; PULSE 105; O2SAT 95
[2023-09-27 21:59] LABS: Coronavirus 19, PCR Detected (NotDetected)
[2023-09-27 22:11] VITALS: BP 160/73; PULSE 100; RESP 18; TEMP 37.1
== END 2023-09-27 22:17 | disposition home or self-care (01) ==
PROVIDERS: Emergency Provider Emergency Medicine; PCP Internal Medicine Adolescent Medicine
DX: U07.1 COVID-19 (principal); R50.9 Fever, unspecified; R00.0 Tachycardia, unspecified; R05.9 Cough, unspecified; K21.9 Gastro-esophageal reflux disease without esophagitis
CPT/HCPCS: 71045; 87636; 99283

== ENCOUNTER 2024-05-21 16:33 | Emergency (ER) | payer OTHER, SELFPAY ==
[2024-05-21] VITALS (7 sets, daily range): BP systolic 123–155; BP diastolic 80–99; PULSE 62–82; RESP 16–21; TEMP 36.7–37.2; O2SAT 96–100; BMI 29.0; BMI 39.0
[2024-05-21 16:56] LABS: Apearance,Urine Clear (Clear); Bilirubin,Urine Negative (Negative); Blood, Urine Negative (Negative); Color,Urine Yellow (Yellow); Glucose,Urine (UA) Negative (Negative); Ketones,Urine Negative (Negative); Protein,Urine Negative (Negative)
[2024-05-21 16:57] LABS: UTC Leukocyte Esterase,Urine Trace (Negative); UTC Nitrate,Urine Negative (Negative); Urobilinogen,Urine 1 EU/dl (0.2)
--- NOTE | 2024-05-21 17:08 | ED_ITS ---
Discharge Plan Disposition Patient Disposition: Still a Patient Referrals Follow up/Referrals: Massimo Kemp MD [Primary Care Provider] - See instructions Discharge ED Provider: [facility] General Stated complaint: pain in stomach bloody urine Mode of Arrival: Ambulatory Source of Information: Patient and Spouse Limitations: No Limitations Time Seen by Provider: 05/21/24 17:00 Description of Symptoms (Recalled from Triage Doc. by RN): PATIENT C/O SHARP PAIN TO RIGHT LOWER ABDOMEN THAT RADIATES ACROSS THAT STARTED TODAY. PATIENT STATES YESTERDAY HE DID HAVE SOME BLOOD IN HIS URINE ONCE HEENT Symptoms (Recalled from RN notes): No Resp Symptoms (Recalled from RN notes): No Skin Symptoms (Recalled from RN notes): No MS Symptoms (Recalled from RN notes): No Functional Status (Recalled from RN notes): WNL History of Present Illness Provider Complaint: 38 yr old male presents for c/o pain in stomach, bloating, bloody urine Related Data Allergies Allergy/AdvReac Type Severity Reaction Status Date / Time No Known Allergies Allergy Verified 12/19/22 14:24 Worker's Comp Is this a Worker's Comp case?: No [facility] Disclaimer: The information contained in this section may have been updated after the patient was seen, as this information can be updated by other users. 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) Smoking Status: Never smoker alcohol intake: current alcohol intake frequency: a few times a month substance use type: denies use current occupational status: employed Travel in the last 8 weeks: None household members: significant other and family housing: house lives independently: Yes marital status: single education level: high school service: No detention: No current occupation: [employer] current occupational exposures/hazards: No caffeine: Yes special gasper needs: No agree to transfusion: No do you feel safe at home: Yes victim of physical abuse: No victim of emotional abuse: No victim of sexual abuse: No would you like helpful sources: No ROS Obtained: Yes All systems reviewed & no additional complaints except as documented Constitutional Constitutional: Reports system reviewed and no additional complaints, except as documented Eyes Eyes: Reports system reviewed and no additional complaints, except as documented ENT Ears, Nose, Mouth, and Throat: Reports system reviewed and no additional complaints, except as documented Cardiovascular Cardiovascular: Reports system reviewed and no additional complaints, except as documented Respiratory Respiratory: Reports system reviewed and no additional complaints, except as documented Gastrointestinal Gastrointestingal: Reports system reviewed and no additional complaints, except as documented, as per HPI and abdominal pain Genitourinary Male Genitourinary: Reports system reviewed and no additional complaints, except as documented, Reports as per HPI, Reports hematuria and Reports urinary frequency Musculoskeletal Musculoskeletal: Reports system reviewed and no additional complaints, except as documented Integumentary/Breasts Skin/Breast: Reports system reviewed and no additional complaints, except as documented Neurologic Neurologic: Reports system reviewed and no additional complaints, except as documented Endocrine Endocrine: Reports system reviewed and no additional complaints, except as documented Hematologic/Lymphatic Henatologic/Lymphatic: Reports system reviewed and no additional complaints, except as documented Allergic/Immunologic Allergic/Immunologic: Reports system reviewed and no additional complaints, except as documented Physical Exam General General appearance: alert and in no apparent distress Eye Eye exam: Present normal appearance ENT ENT exam: Present normal exam, normal oropharynx, mucous membranes moist and TM's normal bilaterally Respiratory Respiratory exam: Present normal lung sounds bilaterally Cardiovascular Cardiovascular exam: Present regular rate and normal rhythm Abdominal Exam Abdominal exam: Present distention, tenderness and hyperactive bowel sounds Abdominal tenderness: Present moderate Comment: rt flank pain Neurological Exam Neurological exam: Present alert and oriented X3 Skin Skin exam: Present warm and intact Medical Decision Making Medical Records Medical records reviewed: Yes I reviewed the patient's medical records. Morgan Inquiry Pt receiving controlled substance: No Morgan was queried for this patient: No Vital Signs: 05/21/24 16:40 Temperature 98.1 F Temperature Source Oral Pulse Rate [Left Brachial] 79 Respiratory Rate 21 Blood Pressure [Left Arm] 123/82 Blood Pressure Mean [Left Arm] 95 Blood Pressure Source [Left Arm] Automatic Cuff Blood Pressure Position [Left Arm] Sitting 02 Sat by Pulse Oximetry 98 Oxygen Delivery Method Room Air Lab Data Lab results reviewed: Yes I reviewed the patient's lab results. Lab Results 05/21/24 16:55: Urine Color Yellow, Urine Appearance Clear, Urine pH 6.0, Ur Specific [place] 1.020, Urine Protein Negative, Urine Glucose (UA) Negative, Urine Ketones Negative, Urine Blood Negative, Urine Nitrate Negative, Urine Bilirubin Negative, Urine Urobilinogen 1, Ur Leukocyte Esterase Trace Orders (Tests/Meds): ORDERS Category Date Time Status Urine Culture Stat Micro 05/21/24 16:41 Received Physician Consults Physician Consulted: dr davis Time: 17:20 Reason -: Pt condition Comment/Response: sent to ed for eval
--- NOTE | 2024-05-21 17:31 | PC.NURSE ---
DR PARKS AT BEDSIDE
--- NOTE | 2024-05-21 17:34 | CT_ITS ---
PROCEDURE INFORMATION: Exam: CT Abdomen And Pelvis With Contrast Exam date and time: 05/21/2024 6:09 PM Age: 38 years old Clinical indication: Abdominal pain; Additional info: Generalized abd pain/nausea, hematuria TECHNIQUE: Imaging protocol: Computed tomography of the abdomen and pelvis with contrast. Radiation optimization: All CT scans at this facility use at least one of these dose optimization techniques: automated exposure control; mA and/or kV adjustment per patient size (includes targeted exams where dose is matched to clinical indication); or iterative reconstruction. Contrast material: ISOVUE; Contrast volume: 75 ml; Contrast route: IV; COMPARISON: 1. CT ABDOMEN PELVIS W CON 09/26/2023 10:[address] ABDOMEN PELVIS W CON 12/12/2022 9:[address] ABDOMEN PELVIS WO CON 05/09/2022 6:56 AM FINDINGS: Liver: Normal. Gallbladder and biliary ducts: No acute process. Pancreas: Normal. Spleen: Normal. Adrenal glands: The adrenal glands appear normal. Kidneys and ureters: There are no soft tissue renal masses or hydronephrosis. Stomach and bowel: There is large volume stool throughout the colon. Appendix: No evidence of appendicitis. Intraperitoneal space: Unremarkable. Vasculature: The abdominal aorta and its major branches appear normal without evidence of aneurysm or stenosis. There are pelvic phleboliths. Lymph nodes: No lymphadenopathy. Urinary bladder: There is mild bladder wall thickening, possibly due to under distention and a nonspecific finding. Reproductive: No acute process. Bones/joints: The visualized osseous structures of the abdomen and pelvis appear normal for patient age. Soft tissues: Unremarkable. IMPRESSION: Mild circumferential bladder wall thickening could reflect underdistention or cystitis no urolithiasis or hydronephrosis is seen.
--- NOTE | 2024-05-21 17:36 | ED_ITS ---
Discharge Plan Disposition Patient Disposition: Home, Self-Care Condition: Good Prescriptions Prescriptions: New ketorolac 10 mg tablet 10 mg PO Q8H PRN (Reason: pain) Qty: 14 0RF ciprofloxacin HCl 500 mg tablet 500 mg PO BID Qty: 20 0RF Referrals Follow up/Referrals: Massimo Kemp MD [Primary Care Provider] - See instructions Activity Restrictions/Add. Instructions Additional Instructions/Restrictions: You were evaluated in the emergency department today. At this time, your urine is concerning for potential infection, especially in the setting of lower abdominal pain and blood in your urine. You also have a mild elevation in your liver enzymes, for which I recommend follow-up with your primary care provider for reassessment of. For concerns for potential UTI, we are prescribing you an antibiotic. tie up worker the full course and take as prescribed. We are also sending in medication at home for you to take as needed for pain. You may take Tylenol every 4-6 hours in addition. Return to the emergency department for new or worsening symptoms. Clinical Impressions Clinical Impression: Transaminitis, Cystitis Stand Alone Forms Stand Alone Forms: Work/School Release Instructions Patient Instructions: DI for Urinary Tract Infection (UTI), DI for Acute Abdominal Pain Discharge ED Provider: Lila Harley General Adult HPI General Chief complaint: Abdominal Pain Stated complaint: pain in stomach bloody urine Time Seen by Provider: 05/21/24 17:00 Mode of Arrival: Ambulatory Source of Information: Patient Limitations: No Limitations Description of Symptoms (Recalled from ER Triage Doc. by RN): pt came from [facility] today for right flank pain that started today and it comes in waves and radiates across abdomen. its throbbing, sharp and stabbing in nature. pt denies any fever or vomiting and diarrhea buit does say the pain can bring on nausea as well as denies urinary s/s. pt has no hx of abd surgeries History of Present Illness HPI narrative: This patient is a 38-year-old male with a history of GERD presenting to the emergency department for evaluation with concern for generalized abdominal pain. Patient reports that yesterday, he noticed some blood in his urine, but that resolved. Today, he went swimming and was fine, but afterward, he started having some right sided abdominal pain which radiates all the way across his abdomen. It is throbbing and sharp/stabbing in nature. It is worse with movement, coughing, and deep breaths. He notes nausea, but no fever, vomiting, or changes in bowel movements. He had a bowel movement today that was normal for him with no blood in the stools or dark tarry stools. He denies any concerns for sexually transmitted infections. No dysuria or other concerns. Related Data Previous Rx's Medication Instructions Recorded ciprofloxacin HCl 500 mg tablet 500 mg PO BID #20 tabs 05/21/24 ketorolac 10 mg tablet 10 mg PO Q8H PRN pain #14 tabs 05/21/24 Allergies Allergy/AdvReac Type Severity Reaction Status Date / Time No Known Allergies Allergy Verified 12/19/22 14:24 [facility] Disclaimer: The information contained in this section may have been updated after the patient was seen, as this information can be updated by other users. 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 Seizure disorder History of gastroesophageal reflux (GERD) Surgical History History of tonsillectomy Family History Other Family history of cancer Family history of diabetes mellitus type II Social History Smoking Status: Never smoker alcohol intake: current alcohol intake frequency: a few times a month substance use type: denies use current occupational status: employed Travel in the last 8 weeks: None household members: significant other and family housing: house lives independently: Yes marital status: single education level: high school service: No usp: No current occupation: [employer] current occupational exposures/hazards: No caffeine: Yes special gasper needs: No agree to transfusion: No do you feel safe at home: Yes victim of physical abuse: No victim of emotional abuse: No victim of sexual abuse: No would you like helpful sources: No ROS Obtained: Yes All systems reviewed & no additional complaints except as documented Physical Exam General General appearance: alert and in no apparent distress Head Head exam: atraumatic and normocephalic Eye Eye exam: Present normal appearance, PERRL and EOMI ENT ENT exam: Present normal exam, normal oropharynx, mucous membranes moist and normal external ear exam Neck Neck exam: Present normal inspection, full ROM and trachea midline; Absent tenderness Chest Chest inspection: Present normal inspection and symmetric chest wall rise; Absent tenderness Respiratory Respiratory exam: Present normal lung sounds bilaterally; Absent respiratory distress, wheezes, stridor or accessory muscle use Cardiovascular Cardiovascular exam: Present regular rate and normal rhythm Abdominal Exam Abdominal exam: Present soft, distention (Mild) and tenderness (Generalized); Absent guarding, rebound or rigidity Extremities Exam Extremities exam: Present normal inspection, full ROM and normal capillary refill; Absent tenderness or edema Back Exam Back exam: Present normal inspection and full ROM; Absent tenderness Neurological Exam Neurological exam: Present alert, oriented X3, CN II-XII intact and normal gait; Absent motor sensory deficit Psychiatric Psychiatric exam: Present normal affect and normal mood Skin Skin exam: Present warm and dry Medical Decision Making Medical Records Medical records reviewed: Yes I reviewed the patient's medical records. Morgan Inquiry Pt receiving controlled substance: No Vital Signs: 05/21/24 16:40 05/21/24 17:18 05/21/24 17:30 Temperature 98.1 F 98.9 F Temperature Source Oral Oral Pulse Rate 71 Pulse Rate [Left Brachial] 79 82 Respiratory Rate 21 20 18 Blood Pressure 137/86 Blood Pressure [Left Arm] 123/82 155/99 H Blood Pressure Mean 103 Blood Pressure Mean [Left Arm] 95 117 Blood Pressure Source [Left Arm] Automatic Cuff Blood Pressure Position [Left Arm] Sitting 02 Sat by Pulse Oximetry 98 99 99 Oxygen Delivery Method Room Air Room Air 05/21/24 18:30 05/21/24 19:00 05/21/24 19:30 Temperature Temperature Source Pulse Rate 70 72 69 Pulse Rate [Left Brachial] Respiratory Rate 18 Blood Pressure 134/84 124/88 130/80 Blood Pressure [Left Arm] Blood Pressure Mean 93 Blood Pressure Mean [Left Arm] Blood Pressure Source [Left Arm] Blood Pressure Position [Left Arm] 02 Sat by Pulse Oximetry 100 96 100 Oxygen Delivery Method 05/21/24 20:08 Temperature 98.4 F Temperature Source Pulse Rate 62 Pulse Rate [Left Brachial] Respiratory Rate 16 Blood Pressure 131/88 Blood Pressure [Left Arm] Blood Pressure Mean Blood Pressure Mean [Left Arm] Blood Pressure Source [Left Arm] Blood Pressure Position [Left Arm] 02 Sat by Pulse Oximetry Oxygen Delivery Method Room Air Lab Data Lab results reviewed: Yes I reviewed the patient's lab results. Lab Results 05/21/24 16:55: Urine Color Yellow, Urine Appearance Clear, Urine pH 6.0, Ur Specific [place] 1.020, Urine Protein Negative, Urine Glucose (UA) Negative, Urine Ketones Negative, Urine Blood Negative, Urine Nitrate Negative, Urine Bilirubin Negative, Urine Urobilinogen 1, Ur Leukocyte Esterase Trace 05/21/24 17:34: Urine Color Yellow, Urine Appearance Clear, Urine pH 6.0, Ur Specific [place] 1.020, Urine Protein Negative, Urine Glucose (UA) Negative, Urine Ketones Negative, Urine Blood Negative, Urine Nitrate Negative, Urine Bilirubin Negative, Urine Urobilinogen 0.2, Ur Leukocyte Esterase Trace, Urine RBC None, Urine WBC 3-5, Ur Squamous Epith Cells 3-5, Urine Bacteria Trace 05/21/24 17:55: WBC 5.7, RBC 4.27 L, Hgb 13.1 L, Hct 37.7 L, MCV 88.4, MCH 30.8, MCHC 34.8, RDW 14.3, Plt Count 150, MPV 10.0, Neut % (Auto) 61.3, Lymph % (Auto) 26.3, [place] % (Auto) 8.5, Eos % (Auto) 3.2, Baso % (Auto) 0.6, Neut # (Auto) 3.5, Lymph # (Auto) 1.5, [place] # (Auto) 0.5, Eos # (Auto) 0.2, Baso # (Auto) 0.0, Sodium 142, Potassium 3.7, Chloride 107, Carbon Dioxide 30, Anion Gap 8.7, BUN 10, Creatinine 1.00, Estimated Creat Clear 178, Estimated GFR 83, Est GFR ( Amer) 101, Glucose 109 H, Calcium 9.1, Total Bilirubin 0.7, AST 90 H, A LT 188 H, Alkaline Phosphatase 67, Total Protein 7.8, Albumin 4.5, Globulin 3.3 H, Albumin/Globulin Ratio 1.4, Lipase 91 05/21/24 17:55 05/21/24 17:55 Orders (Tests/Meds): ED MEDICATIONS Discontinued Medications Generic Name Dose Route Start Last Admin Trade Name Freq PRN Reason Stop Dose Admin Acetaminophen 1,000 mg 05/21/24 17:34 05/21/24 18:06 Acetaminophen 1,000mg/100ml Vial IV 05/21/24 17:35 1,000 mg ONCE ONE Administration Lactated Ringer's 1,000 mls @ 999 mls/hr 05/21/24 17:34 05/21/24 18:06 Lactated Ringer's 1000 Ml Bag IV 05/21/24 18:34 999 mls/hr .Q1H1M ONE Administration Iopamidol 75 ml 05/21/24 18:13 05/21/24 18:15 Iopamidol-370 (76%);100ml Bottle IV 05/21/24 18:14 75 ml ONCE ONE Administration Ketorolac Tromethamine 15 mg 05/21/24 17:34 05/21/24 18:06 Ketorolac 30mg/Ml Vial IV 05/21/24 17:35 15 mg ONCE ONE Administration Ketorolac Tromethamine 15 mg 05/21/24 19:43 05/21/24 19:50 Ketorolac 30mg/Ml Vial IV 05/21/24 19:44 15 mg ONCE ONE Administration Levofloxacin 750 mg 05/21/24 19:42 05/21/24 19:50 Levofloxacin 750 Mg Tablet PO 05/21/24 19:43 750 mg ONCE ONE Administration Methocarbamol 500 mg 05/21/24 19:43 05/21/24 19:50 Methocarbamol 500mg Tablet PO 05/21/24 19:44 500 mg ONCE ONE Administration Ondansetron HCl 4 mg 05/21/24 17:34 05/21/24 18:06 Ondansetron 4mg/2ml Vial IV 05/21/24 17:35 4 mg ONCE ONE Administration Phenazopyridine HCl 200 mg 05/21/24 19:43 05/21/24 19:50 Phenazopyridine 200mg Tablet PO 05/21/24 19:44 200 mg ONCE ONE Administration Sodium Chloride 10 ml 05/21/24 18:13 05/21/24 18:15 Sodium Chloride 0.9% 10ml Syr (Rad Only) IV 05/21/24 18:14 10 ml ONCE ONE Administration ORDERS Category Date Time Status CT abdomen pelvis w con Stat Cat Scan 05/21/24 17:34 Completed CBC w/Auto Diff [Complete Blood Count Auto Diff] Stat Lab 05/21/24 17:55 Completed CMP [Comprehensive Metabolic Panel] Stat Lab 05/21/24 17:55 Completed Lipase Stat Lab 05/21/24 17:55 Completed UA [Urinalysis and Microscopic] Stat Lab 05/21/24 17:34 Completed Urine Culture Stat Micro 05/21/24 16:41 Received Medical Decision Narrative: In summary, this patient is a 38-year-old male presenting to the Emergency Department for evaluation of generalized abdominal pain as well as hematuria yesterday that has resolved. Differential diagnoses considered include but are not limited to pyelonephritis, ureterolithiasis, cystitis, colitis, diverticulitis, cholecystitis, appendicitis. Ruling out the most morbid conditions drove assessment. I reviewed patient's past medical records and noted previous ED evaluations for abdominal pain, constipation, and GERD. On exam, the patient is resting comfortably in bed in no acute distress. He has generalized abdominal tenderness but no rebound or rigidity. Workup included CBC, CMP, lipase, urinalysis, and CT abdomen and pelvis with IV contrast. He was given a bolus of IV fluids as well as IV Toradol, acetaminophen, and Zofran for symptomatic improvement. I independently interpreted CT scan prior to the radiologist read and noted no obvious bowel blockage. Please see their read for final interpretation. Labs were obtained that demonstrated mild transaminitis with ALT greater than AST. Urine is also concerning for possible infection in the setting of hematuria and lower abdominal pain with some white blood cells and bacteria. Urine culture was sent to further assess as well as urine gonorrhea and chlamydia just to be on the safe side, though patient denies any concern for STI.. On reassessment, patient had some improvement after administration of interventions above. He was given another dose of IV Toradol as well as oral Pyridium and Robaxin for further improvement. To treat complicated UTI, he was given a dose of Levaquin here since we do not have ciprofloxacin as well as a prescription for ciprofloxacin to take at home.. At this time, patient was deemed to be appropriate for discharge. He was given prescriptions for Toradol and ciprofloxacin as well as instructions for close outpatient follow-up. He was given very strict return precautions and was discharged after all questions were answered with instructions to follow-up with his primary care provider for reassessment of his liver enzymes. Critical Care Critical Care Time Critical Care Time: No
[2024-05-21 18:06] LABS: Basophils % 0.6 % (0.1-2.0); Eosinophils # 0.2 K/mm3 (0.0-0.4); Eosinophils % 3.2 % (0.1-12.0); Hematocrit 37.7 % (42.0-52.0); Hemoglobin 13.1 g/dL (14.1-18.0); Lymphocytes # 1.5 K/mm3 (0.7-4.5); Lymphocytes % 26.3 % (10-50); Mean Corpuscular HGB Conc 34.8 g/dL (31.8-35.4); Mean Corpuscular Hemoglobin 30.8 pg (27.0-31.2); Mean Corpuscular Volume 88.4 fl (80-94); Monocytes # 0.5 K/mm3 (0.1-1.0); Monocytes % 8.5 % (1.7-9.3); Neutrophils # 3.5 K/mm3 (1.8-7.8); Neutrophils % 61.3 % (37.0-80.0); Platelet Count 150 K/mm3 (142-424); Red Blood Count 4.27 M/mm3 (4.60-6.20); Red Cell Distribution Width 14.3 % (11.5-17.5); White Blood Count 5.7 K/mm3 (4.8-10.8)
[2024-05-21] MEDS: ONDANSETRON 4MG/2ML VIAL 4 MG IV (18:06)
[2024-05-21] MEDS: KETOROLAC 30MG/ML VIAL 15 MG IV ×2 (18:06→19:50)
[2024-05-21] MEDS: LACTATED RINGERS 1000ML 1,000 ML 999 ML IV (18:06)
[2024-05-21] MEDS: ACETAMINOPHEN 1,000MG/100ML VIAL 1000 MG IV (18:06)
[2024-05-21 18:10] LABS: Chloride 107 mmol/L (98-107); Potassium 3.7 mmoL/L (3.5-5.1); Sodium 142 mmol/L (136-145)
[2024-05-21 18:12] LABS: Blood Urea Nitrogen 10 mg/dl (9-20); Creatinine Clearance Estimated 178 mL/min (50-200); Estimated Glomerular Filt Rate 83 ml/min (>60); GFR (African American) 101 ML/MIN (>60)
[2024-05-21 18:13] LABS: Alanine Aminotransferase 188 U/L (12-78); Albumin Level 4.5 g/dl (3.5-5.0); Albumin/Globulin Ratio 1.4 (1.1-1.8); Alkaline Phosphatase 67 U/L (38-126); Anion Gap 8.7 mEq/L (5-15); Aspartate Amino Transferase 90 U/L (17-59); Bilirubin,Total 0.7 mg/dl (0.2-1.3); Calcium 9.1 mg/dl (8.4-10.2); Carbon Dioxide 30 mmol/L (22.0-30.0); Globulin 3.3 g/dL (1.3-3.2); Glucose 109 mg/dl (74-100); Lipase 91 U/L (23-300); Total Protein,Serum 7.8 g/dl (6.3-8.2)
[2024-05-21] MEDS: IOPAMIDOL-370 (76%);100ML BOTTLE 75 ML IV (18:15)
[2024-05-21] MEDS: SODIUM CHLORIDE 0.9% 10ML SYR (RAD ONLY) 10 ML IV (18:15)
[2024-05-21 19:33] LABS: Appearance,Urine CLEAR (Clear); Bilirubin,Urine Negative (Negative); Blood, Urine Negative (Negative); Color,Urine YELLOW (Yellow); Glucose,Urine (UA) Negative (Negative); Ketones,Urine Negative (Negative); Leukocyte Esterase,Urine TRACE (Negative); Microscopic, Urine URINE MICROSCOPIC (MICROSCOPIC); Nitrate,Urine Negative (Negative); Protein,Urine Negative (Negative); Urobilinogen,Urine 0.2 EU/dl (0.2)
[2024-05-21 19:44] LABS: Bacteria,Urine Trace /lpf
[2024-05-21] MEDS: levoFLOXacin 750 MG TABLET PO (19:50)
[2024-05-21] MEDS: PHENAZOPYRIDINE 200MG TABLET 200 MG PO (19:50)
[2024-05-21] MEDS: METHOCARBAMOL 500MG TABLET 500 MG PO (19:50)
[2024-05-24 21:08] LABS: Neisseria gonorrhoeae, NAA Negative (Negative)
== END 2024-05-21 20:10 | disposition home or self-care (01) ==
LOC: UTC 16:36 → ER 17:15
PROVIDERS: Nurse Practitioner Family; Emergency Provider Emergency Medicine; PCP Internal Medicine Adolescent Medicine
DX: N30.00 Acute cystitis without hematuria (principal); R74.01 Elevation of levels of liver transaminase levels; R10.84 Generalized abdominal pain; K21.9 Gastro-esophageal reflux disease without esophagitis
CPT/HCPCS: 74177; 80053; 81001; 81003; 83690; 85025; 87086; 87491; 87591; 96361; 96374; 96375; 96376; 99285; J0131; J1885; J2405; J7120; Q9967

== ENCOUNTER 2024-07-14 09:49 | Outpatient (CLI) | payer SELFPAY | END 2024-07-14 23:59 | disposition home or self-care (01) | LOC: LAB 09:50 | PROVIDERS: PCP Internal Medicine Adolescent Medicine; Visit Provider Student in an Organized Health Care Education/Training Program | DX: J02.9 Acute pharyngitis, unspecified (principal) | CPT/HCPCS: 87070 ==

== ENCOUNTER 2025-01-28 19:44 | Emergency (ER) | payer SELFPAY ==
[2025-01-28] VITALS (8 sets, daily range): BP systolic 112–164; BP diastolic 75–118; PULSE 78–93; RESP 16–20; TEMP 36.6–36.8; O2SAT 96–100; BMI 29.9
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
[2025-01-28] MEDS: ACETAMINOPHEN 1,000MG/100ML VIAL 1000 MG IV (20:24)
[2025-01-28] MEDS: KETOROLAC 30MG/ML VIAL 15 MG IV (20:24)
[2025-01-28] MEDS: ONDANSETRON 4MG/2ML VIAL 4 MG IV (20:25)
[2025-01-28 20:35] LABS: Chloride 102 mmol/L (98-107); Sodium 141 mmol/L (136-145)
[2025-01-28 20:36] LABS: Potassium 3.5 mmoL/L (3.5-5.1)
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
[2025-01-28 20:38] LABS: Blood Urea Nitrogen 10 mg/dl (9-20); Creatinine Clearance Estimated 135 mL/min (50-200); Estimated Glomerular Filt Rate 83 ml/min (>60); GFR (African American) 100 ML/MIN (>60)
[2025-01-28 20:39] LABS: Anion Gap 7.5 mEq/L (5-15); Calcium 8.7 mg/dl (8.4-10.2); Carbon Dioxide 35 mmol/L (22.0-30.0); Glucose 98 mg/dl (74-100)
[2025-01-28] MEDS: IOPAMIDOL-370 (76%);100ML BOTTLE 80 ML IV (20:43)
[2025-01-28] MEDS: SODIUM CHLORIDE 0.9% 10ML SYR (RAD ONLY) 10 ML IV (20:43)
[2025-01-28] MEDS: 0.9 % SODIUM CHLORIDE 50 ML VIAL 40 ML IV (20:43)
[2025-01-28 21:00] LABS: Basophils % 0.6 % (0.1-2.0); Eosinophils % 0.5 % (0.1-12.0); Hemoglobin 13.3 g/dL (14.1-18.0); Lymphocytes # 1.4 K/mm3 (0.7-4.5); Lymphocytes % 21.2 % (10-50); Mean Corpuscular Hemoglobin 29.7 pg (27.0-31.2); Mean Corpuscular Volume 84.8 fl (80-94); Mean Platelet Volume 11.9 fl (7.4-10.4); Monocytes # 0.9 K/mm3 (0.1-1.0); Neutrophils # 4.1 K/mm3 (1.8-7.8); Neutrophils % 63.4 % (37.0-80.0); Platelet Count 182 K/mm3 (142-424); Red Blood Count 4.48 M/mm3 (4.60-6.20); Red Cell Distribution Width 12.8 % (11.5-17.5); White Blood Count 6.5 K/mm3 (4.8-10.8)
[2025-01-28 21:49] LABS: HIV Combo NEGATIVE (Negative)
[2025-01-28 21:57] LABS: Hepatitis C Ab Qual. W/ RFX NEGATIVE (Negative)
== END 2025-01-28 21:25 | disposition home or self-care (01) ==
PROVIDERS: Emergency Provider Emergency Medicine; PCP Internal Medicine Adolescent Medicine
DX: T71.194A Asphyxiation due to mechanical threat to breathing due to other causes, undetermined, initial encounter (principal); S06.0XAA Concussion with loss of consciousness status unknown, initial encounter; Y09 Assault by unspecified means; R07.0 Pain in throat; R63.0 Anorexia; R51.9 Headache, unspecified; R11.0 Nausea; R22.1 Localized swelling, mass and lump, neck
CPT/HCPCS: 70450; 70496; 70498; 72125; 80048; 85025; 86803; 87389; 96374; 96375; 99285; J0131; J1885; J2405; Q9967

== ENCOUNTER 2025-07-04 14:48 | Outpatient (RCR) | payer BC, SELFPAY ==
--- NOTE | 2025-07-04 16:09 | HMH.PTOPEV ---
PT Outpatient Evaluation Rehab PT Outpatient Evaluation Start: 07/04/25 14:54 Freq: Status: Active Protocol: Document 07/04/25 14:55 EMILIANO (Rec: 07/04/25 16:09 EMILIANO [id number]) E-signed By Lila Kirby, PT Outpatient Therapy Subjective History Subjective History Pt is a 39 y/o male who reports chronic low back pain with gradual worsening of symptoms overtime without known trauma or injury. Pt reports constant central low back pain with intermittent radiating pain into the L> R lateral aspect of the leg to his big toe. Pt denies b /b dysfunction. Pt denies having recent imaging of his back. Per pt records, pt had a lumbar spine MRI on with impression of Annular disc bulge, posterior midline annular tear and a central/left paracentral disc protrusion at L4-5 with mild right and moderate left neural foraminal narrowing. Pt reports pain is aggravated by prolonged sitting, standing, walking, bending, lifting, and stair climbing. Pt reports stiffness noted of the low back with prolonged sitting that eases with movement. Pt also reports impaired sleeping due to pain, states he is taking prescribed muscle relaxers with slight improvement in symptoms. Pt states laying on his stomach sometimes eases pain as well. Pt reports he is unable to perform recreational activities such as running, lifting weights and softball due to low back pain. Pt denies further comorbidities to report. Work: [employer] New diagnosis of No cancer in past 12 months? Chief Complaint Pain Symptom Type Sharp,Tingling,Shooting Current Functional Lifting,Sleeping,Standing,Sitting,Recreation Activity, Limitations Walking,Stairs,Bending/Stooping Symptom Description Constant but Variable Level of pain today 9 (0-10) Pain scale - at its 4 best (0-10) Pain scale - at its 10 worst (0-10) Lumbopelvic Eval Posture Lumbar Spine Posture Increased Lordosis Standing Position Palapation tenderness bilateral lumbar spinal Yes tenderness paraspinal Yes: L tenderness buttock tenderness Yes: L piriformis and QL mm Lumbar/Sacral Tenderness Palpation Findings Lumbar/Sacral 3/4 TTP Palpation Overall Comment Accessory Movement L-spine Vertebrae Central P/A [place] Accessory Movements that Elicit Symptoms L2 bilateral L3 bilateral L4 bilateral L5 bilateral S1 bilateral Range of Motion Lumbar Spine Active 30 Flexion Range of Motion (degrees) Lumbar Spine Active 5 Extension Range of Motion (degrees) Left Lumbar Spine 10 Lateral Flexion Active Range of Motion (degrees) Right Lumbar Spine 5 Lateral Flexion Active Range of Motion (degrees) Manual Muscle Test Left Knee Extension 4+ Good+ Strength Grade Knee Flexion 4+ Good+ Strength Grade Hip Flexion Strength 4- Good- Grade Hip Abduction 4- Good- Strength Grade Hip Adduction 4- Good- Strength Grade Hip Extension 3+ Fair+ Strength Grade Ankle Dorsiflexion 5 Normal Strength Grade DTR Rt Patellar 2+ Lt Patellar 2+ Altered Sensation Bilateral LE Dermatome Level L4,L5,S1 Comment Increased sensitivity to light touch left compared to right Special Tests Hip Andrea (FORREST) Positive Left Test Sciatic Nerve Positive Left Tension Test Unilateral Straight Positive Left Leg Raise (Lasegue) Test Oswestry Index Section 1 Pain Intensity The pain comes and goes and is severe Section 2 Personal Care ( unable to do some washing and dressing without help Washing,[place]) Section 3 Lifting I can lift heavy weights without extra pain Section 4 Walking I cannot walk more than 1/4 mile without increasing pain Section 5 Sitting Pain prevents me from sitting for more than 10 minutes Section 6 Standing I cannot stand more than 10 minutes without increasing pain Section 7 Sleeping Because of pain, my normal nights sleep is less than 2 hours sleep Section 8 Social Life Pain has restricted my social life to my home Section 9 Traveling I get extra pain while traveling which compels me to seek alternate fo Section 10 Changing Degreee of My pain is neither getting better or worse Pain Score and Risk Level Oswestry Sc 34 Oswestry Risk Level Severe Disability Miscellaneous Dx PT Eval Objective Objective + slump test on LLE Outpatient Therapy Assessment Impairments Problems/ Palpation Tenderness,Impaired Range of Motion,Impaired Impairmments Strength,Impaired Walking,Impaired Standing,Impaired Sitting,Impaired Lifting,Impaired Household Care, Impaired Stair Climbing,Impaired Bending,Subjective C/O Pain,Impaired Self Care/Self Management Prognosis Rehab Potential Good Clinical Impression Consistent with Yes Diagnosis PT Patient Goals PT Patient Goals PT Short Term 3 weeks: Patient Goals 1. Verbalize compliance with HEP to assist with overall progress 2. Improve DULCE score to 29 or less to improve overall QOL/function 3. Improve pain at worst to 8/10 to improve overall QOL 4. Improve lumbar AROM flex to at least 40 to assist with mobility/function PT Administrative Director Patient 6 weeks: Goals 1. Improve DULCE score to 24 or less to improve overall QOL/function 2. Improve pain at worst to 6/10 to improve overall QOL 3. Improve Lumbar AROM flex to 60-70, ext & LF to 15 to assist with mobility/function 4. Improve LLE MMT to 4-4+/5 grossly to assist with function 5. Demonstrate proper lifting mechanics to assist with occupation/ADLs 6. Improve tenderness to palpation of lumbar paraspinals and motions segments to 0-1/4 to assist with pain. Outpatient Therapy Plan of Care Treatment Plan May Include Therapeutic Exercise Yes Including Home Exercise Program Manual Therapy Yes Techniques Neuromuscular Re- Yes education Therapeutic Yes Activities to Return to Previous Functional/Work Level ADL/Self Care Yes Education Mechanical Traction Yes Dry Needling Yes Thermal Modalities Yes Electrical Yes Stimulation Ultrasound/ Yes Phonophoresis Iontophoresis Yes Massage Yes Eval/Re-Eval Yes Frequency Times per week 2 Duration Number of Weeks 4-6 Addendums This patient is a No candidate for social or vocational rehab ? Patient/Guardian Yes verbally acknowledges understanding of treatment program and consents to further treatment? Patient/Guardian Yes verbally acknowledges understanding of diagnosis, prognosis and goals for treatment? Eval Complexity PT Charges 34480 - Low Complexity Shoulder/Elbow Eval Shoulder Objective Measurements Elbow Objective Measurements PHYSICIAN CERTIFICATION: I certify the specified therapy services for Guy Hernandez are required, authorized, and reviewed every 30 days.
== END 2025-07-04 23:59 | disposition home or self-care (01) ==
LOC: PT 14:48
PROVIDERS: PCP Internal Medicine Adolescent Medicine; Visit Provider Internal Medicine Adolescent Medicine
DX: M54.42 Lumbago with sciatica, left side (principal)
CPT/HCPCS: 97161

== ENCOUNTER 2025-08-07 17:00 | Outpatient (RCR) | payer BC, SELFPAY | END 2025-08-07 23:59 | disposition home or self-care (01) | LOC: PT 17:00 | PROVIDERS: PCP Internal Medicine Adolescent Medicine; Visit Provider Internal Medicine Adolescent Medicine | DX: M54.42 Lumbago with sciatica, left side (principal) | CPT/HCPCS: 97014; 97110; G0283 ==

== ENCOUNTER 2025-11-08 08:01 | Outpatient (CLI) | payer BC, OTHER, SELFPAY ==
[2025-11-08 14:57] LABS: Coronavirus 19, PCR Not Detected (NotDetected); Influenza B, PCR Not Detected (NotDetected)
[2025-11-08 18:50] LABS: Influenza A, PCR Detected (NotDetected)
--- OUTSIDE RECORDS SUMMARY | 2025-11-09 08:03 | XMS_ITS ---
Author Organization [facility] , [facility] Address [address] [place] [address] Phone Care Team Providers Care Toxicology Teacher Name Role Phone COLLINS COLLAZO MD Unavailable [phone] Gilmer NAGEL, Kuldeep Gillespie Unavailable [phone] Problems Includes: Active, inactive, and resolved Problems All Visits Onset Date Date of Diagnosis Resolved Date Provider Condition Status Lower Back Pain 08/14/2022 08/14/2022 Kuldeep Scherer MD Active Last Documented On 5 1:41AM ; [facility], [facility] Plan of Treatment Instructions to patient Lose weight Last Documented On 3 2:55PM ; [facility], [facility] Lose weight Last Documented On 2 10:20AM ; [facility], [facility] Assessments Includes: Assessments for all patient encounters No Assessments Recorded Instructions Includes: Instructions for all patient encounters Instructions to patient Lose weight Last Documented On 3 2:55PM ; [facility], [facility] Lose weight Last Documented On 2 10:20AM ; [facility], [facility] Medical Equipment - Implanted Devices Includes: Current and historical Devices No Medical Equipment Recorded Medications Includes: Current and historical Medications Current Medications (continue as prescribed) Diclofenac Sodium 75 MG Oral Tablet Delayed Release Provider: Diagnosis: Last Documented On 2 9:17AM By Josette Capellan ; [facility], [facility] Omeprazole 40 MG Oral Capsule Delayed Release 07/11/20 Provider: Lalo Vines Diagnosis: Last Documented On 2 9:17AM By Josette Capellan ; [facility] Past Medications on file Diclofenac Sodium 75 MG Oral Tablet Delayed Release 11/18/2022 - 01/17/2023 Provider: Adeel Warner PA-C Diagnosis: twice a day Last Documented On 3 3:29PM By Kesha Tanner ; [facility] Mobic 15 MG Oral Tablet 08/14/2022 - 10/13/2022 Provid er: Kuldeep Scherer MD Diagnosis: once a day Last Documented On 2 10:06AM By Dari Watson ; [facility] Methocarbamol 750 MG Oral Tablet 08/14/2022 - 10/13/20 22 Provider: Kuldeep Scherer MD Diagnosis: Take 1 tablet every 8 hrs prn pain Last Documented On 2 10:07AM By Dari Watson ; [facility] Medications Administered Includes: Administered Medications in patient's chart No Administered Medications Recorded Results Includes: Results from 11/09/2024 through 11/09/2025 No Results Recorded For Specified Dates Social History Description Last Updated Tobacco non-user 08/14/2022 Last Documented On 2 10:20AM ; [facility] Caffeine use 08/14/2022 Last Documented On 2 10:20AM ; [facility] No recent change in diet 08/14/2022 Last Documented On 2 10:20AM ; [facility] Not a current smoker. 08/14/2022 Last Documented On 2 10:20AM ; [facility] Not exercising regularly 08/14/2022 Last Documented On 2 10:20AM ; [facility] Not using alcohol 08/14/2022 Last Documented On 2 10:20AM ; [facility] Not using drugs 08/14/2022 Last Documented On 2 10:20AM ; [facility] Sex - Male 11/27/2022 Last Documented On 3 10:43AM ; [facility] Smoking Status Unknown 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 Includes: 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 in patient's chart Description Last Updated History of Heartburn / Acid Reflux 08/14 Last Documented On 2 10:20AM ; [facility], [facility] No recent immunization for flu 2 Last Documented On 2 10:20AM ; [facility] No recent immunization for pneumococcal pneumonia 08/14/2022 Last Documented On 2 10:20AM ; [facility], [facility] Past Surgical History: [place] teeth extr action ~vasectomy 08/14/2022 Last Documented On 2 10:20AM ; [facility], [facility] Family History Includes: Family History in patient's chart Description Last Updated Diabetes mellitus 08/14/2022 Last Documented On 2 10:20AM ; [facility] Family history of cancer 08/14/2022 Last Documented On 2 10:20AM ; [facility] Family history of osteoporosis 2 Last Documented On 2 10:20AM ; [facility] Family history of rheumatoid arthritis 1 Last Documented On 2 10:20AM ; [facility] Stroke / Seizures 08/14/2022 Last Documented On 2 10:20AM ; [facility] Mental Status Description No anxiety Last Documented On 3 2:55PM ; [facility] No anxiety Last Documented On 2 9:20AM ; [facility] Allergies Includes: Active, inactive, and resolved Allergies No Known Allergies Care Toxicology Teacher Name (Identifier) Role/Relation Location/Telecom Last Documented By COLLINS COLLAZO MD ([id number]) [address], [place], [place], [place], [address] tel:[phone] Last Documented On 08/14/2022 9:35AM ; [facility] Kuldeep Scherer MD ([id number]) Assigned practitioner (occupation) [address] [place] [address], [place], [address] tel:[phone] Last Documented On 11/27/2022 10:43AM ; [facility], [facility] Payer Includes: Active Insurance Policies Plan Name (Payer ID) Coverage Type Member ID Group # Subscriber (ID) Relationship Effective Dates 1 - [employer] [facility] ([id number]) [id number] Guy MARIANO Hernandez Self Last Documented On 2 3:35PM ; [facility], [facility]
--- OUTSIDE RECORDS SUMMARY | 2025-11-09 08:03 | XMS_ITS | Clinical Summary ---
Author Organization [facility] , [facility] Address [address] [place] [address] Phone Care Team Providers Care Geosciences Faculty Member Name Role Phone COLLINS COLLAZO MD Unavailable [phone] Gilmer NAGEL, Kuldeep Gillespie Unavailable [phone] Reason for Visit and Chief Complaint The Chief Complaint is: low back pain Problems Includes: Problems addressed during this encounter and other active Problems Current Visit Onset Date Date of Diagnosis Resolved Date Provider Condition Status Lower Back Pain 08/14/2022 08/14/2022 Kuldeep Scherer MD Active Last Documented On 5 1:41AM ; [facility] Plan of Treatment Patient was seen by myself Adeel Warner PA-C. Patient will follow up 6 weeks do recommend an anti-inflammatory again we will give her a brochure some exercises to work on says he can go to formalized physical therapy and has done this previously and the other option would be the epidural I think that is reasonable for him to try we will see if we get this reapproved this would be at L4-L5 - Last Documented On 11/18/2022 4:38PM ; [facility] Instructions to patient Lose weight Last Documented On 3 2:55PM ; [facility] Assessments Includes: Assessments from this encounter Findings L4-5 disc bulge and annular tear - Last Documented On 11/18/2022 4:38PM ; [facility] Instructions Includes: Instructions from this encounter Instructions to patient Lose weight Last Documented On 3 2:55PM ; [facility] Medical Equipment - Implanted Devices Includes: Current Devices No Medical Equipment Recorded Medications Includes: Medications discussed during this encounter and other current Medications New / Renewed during this visit Adeel Warner PA-C on 11/18/2022 Diclofenac Sodium 75 MG Oral Tablet Delayed Release Provider: Adeel Bowman 30 day supply: 60 tablet, 1 refills Diagnosis: twice a day Pharmacy: [id number] - [address] [address] [place], [id number] - Last Documented On 3 3:29PM By Kesha Tanner ; [facility] Current Medications (continue as prescribed) Diclofenac Sodium 75 MG Oral Tablet Delayed Release Provider: Diagnosis: Last Documented On 2 9:17AM By Josette Capellan ; [facility] Omeprazole 40 MG Oral Capsule Delayed Release 07/11/20 Provider: Lalo Vines Diagnosis: Last Documented On 2 9:17AM By Josette Capellan ; [facility] Past Medications on file Mobic 15 MG Oral Tablet 08/14/2022 - 10/13/2022 Provid er: Kuldeep Scherer MD Diagnosis: once a day Last Documented On 2 10:06AM By [facility] Methocarbamol 750 MG Oral Tablet 08/14/2022 - 10/13/20 Provider: Kuldeep Scherer MD Diagnosis: Take 1 tablet every 8 hrs prn pain Last Documented On 2 10:07AM By Dari Watson ; [facility] Medications Administered Includes: Administered Medications from this encounter No Administered Medications Recorded Vital Signs Includes: Vital Signs from this encounter Vital Name 11/18/2022 02:56P Blood Pressure Sitting (mmHg) 114/71 Pulse Rate-Sitting (bpm) 90 Height (in) 69 Weight (lb) 202 Body Mass Index 29.8 Body Surface Area 2.1 Note: [facility] Last Documented: On 11/18/2022 2:56PM ; [facility] Results Includes: Results discussed during this encounter No Results Recorded For Specified Dates History of Present Illness Includes: History of Present Illness from this encounter HUMAIRA Hernandez is a 37 year old male. - Allergy list reviewed - Problem list reviewed - Medication list reviewed - Previous history of new onset pain Injury is not work related or an automotive accident - Patient pain level from 1-10: 9 - History of Physical Therapy Patient is here today complaints of just back pain bending back increases his pain that he describes as a shooting type of pain he has a hard time getting comfortable he does not describe any radicular symptoms his previous MRI had showed disc bulge annular tear at L4-5 he is tried physical therapy with his physical therapy does not help his next option would be an epidural injection we try to get this approved before we will see if we can get it approved again for him it was denied the first time Social History Description Last Updated Tobacco non-user 08/14/2022 Last Documented On 3 2:55PM ; [facility] Caffeine use 08/14/2022 Last Documented On 3 2:55PM ; [facility] No recent change in diet 08/14/2022 Last Documented On 3 2:55PM ; [facility] Not a current smoker. 08/14/2022 Last Documented On 3 2:55PM ; [facility] Not exercising regularly 08/14/2022 Last Documented On 3 2:55PM ; [facility] Not using alcohol 08/14/2022 Last Documented On 3 2:55PM ; [facility] Not using drugs 08/14/2022 Last Documented On 3 2:55PM ; [facility] Sex - Male 11/27/2022 Last Documented On 3 10:43AM ; [facility] Smoking Status Unknown Procedures and Surgical History Includes: Procedures from this encounter Procedures Code Diagnosis Performing Provider Service L ocation Service Date use of tobacco assessment performed 1000F Last Documented On 3 2:55PM ; [facility] no influenza immunization patient refuse d Last Documented On 3 2:55PM ; [facility] an MRI was performed 12594 Last Documented On 3 2:55PM ; [facility] 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 Includes: 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 addressed during this encounter Description Last Updated History of Heartburn / Acid Reflux 08/14 Last Documented On 3 2:55PM ; [facility] No recent immunization for flu 2 Last Documented On 3 2:55PM ; [facility] No recent immunization for pneumococcal pneumonia 08/14/2022 Last Documented On 3 2:55PM ; [facility] Past Surgical History: [place] teeth extr action ~vasectomy 08/14/2022 Last Documented On 3 2:55PM ; [facility] Family History Includes: Family History addressed during this encounter Description Last Updated Diabetes mellitus 08/14/2022 Last Documented On 3 2:55PM ; [facility] Family history of cancer 08/14/2022 Last Documented On 3 2:55PM ; [facility] Family history of osteoporosis 2 Last Documented On 3 2:55PM ; [facility] Family history of rheumatoid arthritis 1 Last Documented On 3 2:55PM ; [facility] Stroke / Seizures 08/14/2022 Last Documented On 3 2:55PM ; [facility] Review of Systems Includes: Review of Systems from this encounter Systemic: Not feeling tired and no recent weight loss. Recent weight gain. Head: No headache and no sinus pain. Eyes: No vision problems and no Cataracts. Glasses/Contacts. No Glaucoma. Otolaryngeal: No hearing loss and no tinnitus. Cardiovascular: No chest pain or discomfort, no palpitations, no Hypertension, and no High Cholesterol. Pulmonary: No daytime asthma symptoms and no chronic cough. No wheezing. Gastrointestinal: No heartburn. Abdominal pain. No Indigestion, no Acid Reflux, no Peptic Ulcer, no GI Stomach Bleed, and no Ulcers. Endocrine: No hot flashes, no muscle weakness, no Diabetes, no Hypothyroid, and no Hyperthyroid. Hematologic: No easy bleeding, no tendency for easy bruising, and no Anemia. Musculoskeletal: No Arthritis. Lower back pain. No soft tissue swelling and no localized joint pain. Neurological: No dizziness and no convulsions. Numbness. Psychological: No anxiety, no emotional lability, no depression, and no insomnia. Not crying for no reason. Skin: No dry skin. No Ulcers, no Scars, and no rash. Allergic and Immunologic: No complaint of seasonal allergic reaction. Mental Status Includes: Mental Status from this encounter Description No anxiety Last Documented On 3 2:55PM ; [facility] Physical Exam Includes: Physical Exam from this encounter Allergies Includes: Active Allergies No Known Allergies Care Geosciences Faculty Member Name (Identifier) Role/Relation Location/Telecom Last Documented By COLLINS COLLAZO MD ([id number]) [address], [place], [place], [place], [address] tel: Last Documented On 08/14/2022 9:35AM ; [facility] Kuldeep Scherer MD ([id number]) Assigned practitioner (occupation) [address] [place] [address], , [phone] tel: Last Documented On 11/27/2022 10:43AM ; [facility] Encounters Encounter Provider Location (Healthcare Service Location) Date Check-In Time Check-Out Time Diagnosis Encounter Disposition Follow Up Adeel Warner PA-C [facility] 2022 2:37PM 3:29PM Payer Includes: Active Insurance Policies Plan Name (Payer ID) Coverage Type Member ID Group # Subscriber (ID) Relationship Effective Dates 1 - [employer] [facility] ([id number]) [id number] Guy Hernandez Self Last Documented On 2 3:35PM ; [facility] Clinical Notes Includes: Clinical Notes from this encounter * Progress note Date Encounter Last Documented by 11/18/2022 Follow Up Last documented on 11/18/2022; 4:38 PM, Adeel Warner PA-C; [facility] Active Problems & Conditions - Lower Back Pain Chief Complaint The Chief Complaint is: Low back pain. Referred Here Referred by self. History of Present Illness Guy Hernandez is a 37 year old male. - Allergy list reviewed - Problem list reviewed - Medication list reviewed - Previous history of new onset pain Injury is not work related or an automotive accident - Patient pain level from 1-10: 9 - History of Physical Therapy Patient is here today complaints of just back pain bending back increases his pain that he describes as a shooting type of pain he has a hard time getting comfortable he does not describe any radicular symptoms his previous MRI had showed disc bulge annular tear at L4-5 he is tried physical therapy with his physical therapy does not help his next option would be an epidural injection we try to get this approved before we will see if we can get it approved again for him it was denied the first time Current Medication - Diclofenac Sodium 75 MG Oral Tablet Delayed Release 30 days, 0 refills - Omeprazole 40 MG Oral Capsule Delayed Release 30 days, 0 refills Past Medical/Surgical History Reported: Immunization History: No recent immunization for flu and not for pneumococcal pneumonia. Diagnoses: Heartburn / Acid Reflux Surgical: - Past Surgical History: [place] teeth extraction vasectomy Social History Not a current smoker. Current diet: No recent change in diet. Caffeine use: Caffeine use. Tobacco use: Tobacco non-user. Alcohol: Not using alcohol. Drug Use: Not using drugs. Habits: Not exercising regularly. Allergies - No Known Allergies Family History Cancer Stroke / Seizures Diabetes mellitus Osteoporosis Rheumatoid arthritis Review Of Systems Systemic: Not feeling tired and no recent weight loss. Recent weight gain. Head: No headache and no sinus pain. Eyes: No vision problems and no Cataracts. Glasses/Contacts. No Glaucoma. Otolaryngeal: No hearing loss and no tinnitus. Cardiovascular: No chest pain or discomfort, no palpitations, no Hypertension, and no High Cholesterol. Pulmonary: No daytime asthma symptoms and no chronic cough. No wheezing. Gastrointestinal: No heartburn. Abdominal pain. No Indigestion, no Acid Reflux, no Peptic Ulcer, no GI Stomach Bleed, and no Ulcers. Endocrine: No hot flashes, no muscle weakness, no Diabetes, no Hypothyroid, and no Hyperthyroid. Hematologic: No easy bleeding, no tendency for easy bruising, and no Anemia. Musculoskeletal: No Arthritis. Lower back pain. No soft tissue swelling and no localized joint pain. Neurological: No dizziness and no convulsions. Numbness. Psychological: No anxiety, no emotional lability, no depression, and no insomnia. Not crying for no reason. Skin: No dry skin. No Ulcers, no Scars, and no rash. Allergic and Immunologic: No complaint of seasonal allergic reaction. Physical Findings - Vitals taken 11/18/2022 02:56 pm [facility] BP-Sitting 114/71 mmHg Pulse Rate-Sitting 90 bpm Height 69 in Weight 202 lbs Body Mass Index 29.8 kg/m2 Body Surface Area 2.1 m2 Standard Measurements: - Patient was overweight. Patient is unable to bend over and touch his toe does have some pain with lumbar extension he has 5 out of 5 EHL gastroc quadricep tibialis anterior strength bilaterally no pain with a straight leg raise bilaterally 2+ Achilles and patellar reflexes bilaterally Tests Previous lumbar spine MRI showed a disc bulge annular tear at L4-5 Assessment L4-5 disc bulge and annular tear Previous Tests Imaging: MRI Scan: An MRI was performed. Available previous imaging studies were reviewed Available previous history reviewed Counseling/Education - Lose weight Plan StartCited - Other Diclofenac Sodium 75 MG tablet twice a day, 30 days, 1 refills EndCited Patient was seen by myself Adeel Warner PA-C. Patient will follow up 6 weeks do recommend an anti-inflammatory again we will give her a brochure some exercises to work on says he can go to formalized physical therapy and has done this previously and the other option would be the epidural I think that is reasonable for him to try we will see if we get this reapproved this would be at L4-L5 Notes This dictation was done with voice recognition software and may contain errors and omissions. Practice Management Use of tobacco assessment performed; No influenza immunization patient refused. Care Team - COLLINS COLLAZO MD - RETIREMENT [employer]
--- OUTSIDE RECORDS SUMMARY | 2025-11-09 08:03 | XMS_ITS ---
Care Plan - [facility], [facility] Created on: November 09, 2025 Guy Hernandez : 1985 Sex: Male Author Organization [facility], [facility] Address [address] [place] [address] Phone Care Team Providers Care Solution Make Up Operator Name Role Phone COLLINS COLLAZO MD Unavailable [phone] Kuldeep Scherer MD Unavailable [phone]
--- OUTSIDE RECORDS SUMMARY | 2025-11-09 08:03 | XMS_ITS | Clinical Summary ---
Author Organization [facility] , [facility] Address [address] [place] [address] Phone Care Team Providers Care County Assessor Name Role Phone COLLINS COLLAZO MD Unavailable [phone] Gilmer NAGEL, Kuldeep Gillespie Unavailable [phone] Reason for Visit and Chief Complaint The Chief Complaint is: low back pain Problems Includes: Problems addressed during this encounter and other active Problems Current Visit Onset Date Date of Diagnosis Resolved Date Provider Condition Status Lower Back Pain 08/14/2022 08/14/2022 Kuldeep Scherer MD Active Last Documented On 5 1:41AM ; [facility] Plan of Treatment Instructions to patient Lose weight Last Documented On 2 10:20AM ; [facility] Assessments Includes: Assessments from this encounter No Assessments Recorded Instructions Includes: Instructions from this encounter Instructions to patient Lose weight Last Documented On 2 10:20AM ; [facility] Medical Equipment - Implanted Devices Includes: Current Devices No Medical Equipment Recorded Medications Includes: Medications discussed during this encounter and other current Medications New / Renewed during this visit Kuldeep Scherer MD on 08/14/2022 Mobic 15 MG Oral Tablet Provider: Massimo Scherer MD 30 day supply: 30 tablet, 1 refills Diagnosis: once a day Pharmacy: [id number] - [address] [address] [place], [phone] - Last Documented On 2 10:06AM By Dari Watson ; [facility] Methocarbamol 750 MG Oral Tablet Provider: Kuldeep Scherer MD 30 day supply: 60 tablet, 1 refills Diagnosis: Take 1 tablet every 8 hrs prn pain Pharmacy: [facility] #[id number] - [address] [address] [place], [phone] - Last Documented On 2 10:07AM By Dari Watson ; [facility] Current Medications (continue as prescribed) Diclofenac Sodium 75 MG Oral Tablet Delayed Release Provider: Diagnosis: Last Documented On 2 9:17AM By Josette Capellan ; [facility] Omeprazole 40 MG Oral Capsule Delayed Release 07/11/20 Provider: Lalo Vines Diagnosis: Last Documented On 2 9:17AM By Josette Capellan ; [facility] Past Medications on file Diclofenac Sodium 75 MG Oral Tablet Delayed Release 11/18/2022 - 01/17/2023 Provider: Adeel Warner PA-C Diagnosis: twice a day Last Documented On 3 3:29PM By Kesha Tanner ; [facility] Medications Administered Includes: Administered Medications from this encounter No Administered Medications Recorded Vital Signs Includes: Vital Signs from this encounter Vital Name 08/14/2022 09:21A Blood Pressure Sitting (mmHg) 127/73 Pulse Rate-Sitting (bpm) 70 Height (in) 69 Weight (lb) 189 Body Mass Index (kg/m2) 27.9 Body Surface Area (m2) 2.0 Note: kns Last Documented: On 08/14/2022 9:35AM ; [facility], [facility] Results Includes: Results discussed during this encounter No Results Recorded For Specified Dates History of Present Illness Includes: History of Present Illness from this encounter HUMAIRA Hernandez is a 36 year old male. - Allergy list reviewed - Problem list reviewed - Medication list reviewed - Previous history of new onset pain Injury is not work related or an automotive accident - Patient pain level from 1-10: 9 - History of Physical Therapy Social History Description Last Updated Tobacco non-user 08/14/2022 Last Documented On 2 10:20AM ; [facility] Caffeine use 08/14/2022 Last Documented On 2 10:20AM ; [facility] No recent change in diet 08/14/2022 Last Documented On 2 10:20AM ; [facility] Not a current smoker. 08/14/2022 Last Documented On 2 10:20AM ; [facility] Not exercising regularly 08/14/2022 Last Documented On 2 10:20AM ; [facility] Not using alcohol 08/14/2022 Last Documented On 2 10:20AM ; [facility] Not using drugs 08/14/2022 Last Documented On 2 10:20AM ; [facility] Sex - Male 11/27/2022 Last Documented On 3 10:43AM ; [facility] Smoking Status Unknown Procedures and Surgical History Includes: Procedures from this encounter Procedures Code Diagnosis Performing Provider Service L ocation Service Date use of tobacco assessment performed 1000F Last Documented On 2 9:20AM ; [facility] no influenza immunization patient refuse d Last Documented On 2 10:20AM ; [facility] an MRI was performed [id number] Last Documented On 2 9:19AM ; [facility] 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 Includes: 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 addressed during this encounter Description Last Updated History of Heartburn / Acid Reflux 08/14 Last Documented On 2 10:20AM ; [facility] No recent immunization for flu 2 Last Documented On 2 10:20AM ; [facility] No recent immunization for pneumococcal pneumonia 08/14/2022 Last Documented On 2 10:20AM ; [facility] Past Surgical History: Hume teeth extr action ~vasectomy 08/14/2022 Last Documented On 2 10:20AM ; [facility] Family History Includes: Family History addressed during this encounter Description Last Updated Diabetes mellitus 08/14/2022 Last Documented On 2 10:20AM ; [facility] Family history of cancer 08/14/2022 Last Documented On 2 10:20AM ; [facility] Family history of osteoporosis 2 Last Documented On 2 10:20AM ; [facility] Family history of rheumatoid arthritis 1 Last Documented On 2 10:20AM ; [facility] Stroke / Seizures 08/14/2022 Last Documented On 2 10:20AM ; [facility] Review of Systems Includes: Review of Systems [...] encounter Description No anxiety Last Documented On 2 9:20AM ; [facility] Physical Exam Includes: Physical Exam from this encounter Allergies Includes: Active Allergies No Known Allergies Care County Assessor Name (Identifier) Role/Relation Location/Telecom Last Documented By COLLINS COLLAZO MD ([id number]) [address], [place], [place], , [address] tel: Last Documented On 08/14/2022 9:35AM ; [facility] Kuldeep Scherer MD ([id number]) Assigned practitioner (occupation) [address], [place], [place], , [address] tel: Last Documented On 11/27/2022 10:43AM ; [facility] Encounters Encounter Provider Location (Healthcare Service Location) Date Check-In Time Check-Out Time Diagnosis Encounter Disposition Physician Specified Kuldeep [facility] 2021 8:59AM 10:02AM Payer Includes: Active Insurance Policies Plan Name (Payer ID) Coverage Type Member ID Group # Subscriber (ID) Relationship Effective Dates 1 - [employer] [facility] ([id number]) [id number] Guy Hernandez Self Last Documented On 2 3:35PM ; [facility], [facility]
--- OUTSIDE RECORDS SUMMARY | 2025-11-09 08:03 | XMS_ITS | Data Portability ---
Author Organization [facility] BELKIS Randall MOZIER CLOSED Address [address] [place] [address] Care Team Providers Care Hand Glass Cutter Name Role Phone COLLINS COLLAZO Primary Care Provider Assessment No assessment recorded. Plan of Treatment Reminders Order Date Submit Date Provider Last Modified By Organization Details Last Modified Time Details Appointments None recorded. Lab urinalysis panel, auto 2024 025 [facility], [address], [address], [place], [address], 16:36:54 testosteron e, total, serum 2024 025 [facility], [facility], [place], [address], 19:02:28 Referral None recorded. Procedures None recorded. Surgeries None recorded. Imaging None recorded. Medication Orders sildenafil 100 mg tablet 2024 025 [facility][id number], [address], [phone], 5 16:36:01 AndroGel 20.25 mg/1.25 gram per pump act. (1.62 %) transdermal gel 2024 025 [id number], [address], [phone], 16:36:04 Patient TargetsNo targets recorded. Patient InstructionsNo instructions recorded. Reason for Referral None Reported. Results Created Date Observation Date Name Description Value Unit Range Abnormal Flag Note LastModifiedBy Organization Detail LastModifiedTime 06/20/2006/20/2025 TESTO STERO NE, TOTAL testosterone , total 185 NG/dL 249-83 6 low Refer ence range is for age 20-49 years . Not Available [facility] [address] [facility], [place], [address], 06/20/2025 19:02:28 06/20/2006/20/2025 urina lysis panel , auto Unknown Analyte Clean Catch Not Available [facility] [address], [place], [address], 06/20/2025 16:25:14 06/20/20 25 06/20/2025 urina lysis panel , auto Unknown Analyte Yellow Not Available [facility] [address], [place], [address], 06/20/2025 16:25:14 06/20/2006/20/2025 urina lysis panel , auto Unknown Analyte Clear Not Available [facility] [address], [place], [address], 06/20/2025 16:25:14 06/20/20 25 06/20/2025 urina lysis panel , auto Unknown Analyte 1.005 Not Available [facility] [address], [place], [address], 06/20/2025 16:25:14 06/20/20 25 06/20/2025 urina lysis panel , auto Unknown Analyte 1.003 - 1.030 Not Available [facility] [address], [place], [address], 06/20/2025 16:25:14 06/20/20 25 06/20/2025 urina lysis panel , auto Unknown Analyte 7.0 Not Available [facility] [address] [place] [address] Rd [address], [place], [address], 06/20/2025 16:25:14 06/20/20 25 06/20/2025 urina lysis panel , auto Unknown Analyte 5.0 - 8.0 Not Available [facility] [address], [place], [address], 06/20/2025 16:25:14 06/20/20 25 06/20/2025 urina lysis panel , auto Unknown Analyte Negati ve Not Available [facility] [address] [place] [address] Rd [address], [place], [address], 06/20/2025 16:25:14 06/20/20 25 06/20/2025 urina lysis panel , auto Unknown Analyte Negati ve Not Available [facility] [address], [place], [address], 06/20/2025 16:25:14 06/20/20 25 06/20/2025 urina lysis panel , auto Unknown Analyte Negati ve Not Available [facility] [address] [place] [address] Rd [address], [place], [address], 06/20/2025 16:25:14 06/20/20 25 06/20/2025 urina lysis panel , auto Unknown Analyte Negati ve Not Available [facility] [address], [place], [address], 06/20/2025 16:25:14 06/20/20 25 06/20/2025 urina lysis panel , auto Unknown Analyte Negati ve Not Available [facility] [address], [place], [address], 06/20/2025 16:25:14 06/20/20 25 06/20/2025 urina lysis panel , auto Unknown Analyte Negati ve Not Available [facility] [address] [place] [address] Rd [address], [place], [address], 06/20/2025 16:25:14 06/20/20 25 06/20/2025 urina lysis panel , auto Unknown Analyte Normal Not Available [facility] [address] [place], [place] [address], [place], [address], 06/20/2025 16:25:14 06/20/20 25 06/20/2025 urina lysis panel , auto Unknown Analyte Normal Not Available [facility] [address], [place], [address], 06/20/2025 16:25:14 06/20/20 25 06/20/2025 urina lysis panel , auto Unknown Analyte Negati ve Not Available [facility] [address] [place] [address] Rd [address], [place], [address], 06/20/2025 16:25:14 06/20/20 25 06/20/2025 urina lysis panel , auto Unknown Analyte Negati ve Not Available [facility] [address], [place], [address], 06/20/2025 16:25:14 06/20/20 25 06/20/2025 urina lysis panel , auto Unknown Analyte 1 mg/dL Not Available [facility] [address], [place], [address], 06/20/2025 16:25:14 06/20/20 25 06/20/2025 urina lysis panel , auto Unknown Analyte Normal Not Available [facility] [address], [place], [address], 06/20/2025 16:25:14 06/20/20 25 06/20/2025 urina lysis panel , auto Unknown Analyte Negati ve Not Available [facility] [address], [place], [address], 06/20/2025 16:25:14 06/20/2006/20/2025 urina lysis panel , auto Unknown Analyte Negati ve Not Available [facility] [address], [place], [address], 06/20/2025 16:25:14 06/20/20 25 06/20/2025 urina lysis panel , auto Unknown Analyte Negati ve Not Available [facility] [address], [place], [address], 06/20/2025 16:25:14 06/20/20 25 06/20/2025 urina lysis panel , auto Unknown Analyte Negati ve Not Available [facility] [address], [place], [address], 06/20/2025 16:25:14 Result Notes None recorded. Procedures Surgical History Date Name Laterality Status Provider Name and Address Organization Details Recorded Time vasectomy completed Cathy Lowe [facility] 06/20/2025 16:26:56 extraction of wisdom tooth completed Cathy Lowe [facility] 06/20/2025 16:27:04 Imaging Results None recorded. Procedure Notes None recorded. Medical Equipment None Reported. Allergies No known drug allergies Medications Name Sig Start Date Stop Date Status Note LastModified by Organization Details LastModified Time sildenafil 100 mg tablet Take by oral route for 10 days. active Not Available Not Available No t Available diclofenac sodium 25 mg tablet,delay ed release Take 1 tablet twice a day by oral route. active Not Available Not Available No t Available testosterone 20.25 mg/1.25 gram per pump act.(1.62 %) transdermal gel Apply by transdermal route for 30 days. active Not Available Not Available No t Available Vitals Date Recorded Body height Body mass index (BMI) Body weight Provider Name and Address Organization Details Last Updated DateTime 06/20/2025 175.26 cm 31.7 kg/m2 90273.36 g Cathy Lowe [facility] 06/20/2025 16:26:21 Social History Question Answer Notes LastModified by Organizat ion Details LastModified Time Tobacco Smoking Status Never Smoker Not Available [employer] 06/20/2025 16:23:07 What Is Your Relationship Status? [email or web address] Information not available 06/20/2025 Sex: Unknown Functional Status Question Answer Note LastModified by Organization D etails LastModified Time Do you or have you ever used any other forms of tobacco or nicotine? No [email or web address] Information not available 06/20/2025 What is your level of alcohol consumption? None [email or web address] Information not available 06/20/2025 Are you currently employed? Yes [email or web address] Information not available 06/20/2025 What is your occupation? [employer] [email or web address] Information not available 06/20/2025 Mental Status None recorded. Family History Relationship Description Onset Age of this Age Resolved Age Notes LastModified by Organization Details LastModified Time Maternal Grandmother Type 2 diabetes mellitus [email or web address] Not available 2024 16:23:06 Father Family history of malignant neoplasm [email or web address] Not available 2024 16:23:06 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 Condition Response Acid Reflux (GERD) Y Seizures/Epilepsy Y Arthritis Y Immunizations Vaccine Type Date Status Note Provider Nam e and Address Organization Details Recorded Time MMR 6 completed Not Available [facility] 06/20/2025 16:24:12 Hep B, adolescent/high risk 6 completed Not Available [facility] 06/[facility]/2025 16:24:12 Hep B, adolescent/high risk 6 completed Not Available [facility] 06/20/2025 16:24:12 Td (adult), 2 Lf tetanus toxoid, preservative free, adsorbed 0 completed Not Available [facility] 06/20/2025 16:24:12 Hep B, adolescent or pediatric 0 completed Not Available [facility] 06/20/2025 16:24:12 COVID-19 vaccine, vector-nr, rS-Ad26, PF, 0.5 mL 1 completed Not Available [facility] 06/20/2025 16:24:12 Past Encounters Encounter ID Performer Location Encounter Start Date Encounter Closed Date Diagnosis/Indication Diagnosis SNOMED-CT Code Diagnosis ICD10 Code Diagnosis IMO Codes Diagnosis Note [id number] DANIELA MENESES MD [facility] [address] [place] [address] 06/20/2025 16:23:06 06/20/2025 16:34:20 Male hypogonadism 20965254 E29.1 [id number] Primary er ectile dysfunction 934663820 N52.9 [id number] Health Concerns Section Related Observation LastModified by Organization Detai ls LastModified Time None Recorded Concern Status LastModified by Organization Details LastModified Time None Recorded Advance Directives Directive None Recorded Payers Insurance Date Sequence Insurance Name Policy Number Policy Reyes Covered Member ID Reyes Member ID Guarantor Name 08/21/2025 1 [employer] [id number] Guy Hernandez [id number] Guy Hernandez Notes Date Note Type Note Provider Name and Address Organization Details Recorded Time 06/20/2025 text/html 39-year-old gentleman who has been found to have a testosterone level of 249 he has some decreased energy and decreased libido. His erections are completely we will draw second testosterone level today sildenafil we will give 100 mg dose. He will try 1/2 tablet initially. We will begin AndroGel therapy and repeat the testosterone level in 2 months DANIELA MENESES MD [address] [place], [address], [facility] 06/20/2025 16:36:45
== END 2025-11-08 23:59 | disposition home or self-care (01) ==
LOC: LAB.DROPOF 11-09 08:01
PROVIDERS: PCP Internal Medicine Adolescent Medicine; Visit Provider Nurse Practitioner
DX: J06.9 Acute upper respiratory infection, unspecified (principal)
CPT/HCPCS: 87631